=== PATIENT | female | born 1950 | race Caucasian/White ===

== ENCOUNTER 2022-09-21 15:55 | Emergency (ER) | payer MEDICARE, MEDICAID, SELFPAY ==
[2022-09-21 15:59] VITALS: BP 112/71; PULSE 85; RESP 20; TEMP 36.8; O2SAT 97; BMI 37.9
[2022-09-21 16:14] VITALS: BP 114/63; PULSE 72; RESP 16; O2SAT 99
--- NOTE | 2022-09-21 16:25 | XRR_ITS ---
PROCEDURE INFORMATION: Exam: XR Left Knee Exam date and time: 09/21/2022 4:36 PM Age: 72 years old Clinical indication: Injury or trauma; Fall; Blunt trauma; Knee; Left TECHNIQUE: Imaging protocol: Radiologic exam of the Left knee. Views: 3 views. COMPARISON: No relevant prior studies available. FINDINGS: Bones/joints: Medial joint space narrowing with mild degenerative spurring of the medial condyles. No fracture. No visible knee effusion. Soft tissues: Normal. XR/XR knee LT 3V* [id number] IMPRESSION: No acute finding.
--- NOTE | 2022-09-21 16:26 | ED_ITS ---
HPI - Extremity Problem General: Chief complaint: Extremity Injury, Lower Stated complaint: Fall, left knee pain Time Seen by Provider: 09/21/22 16:03 Source: patient and family Mode of arrival: ambulatory Limitations: no limitations History of Present Illness: This lady presents to the emergency department because of a fall injury. She states that she was walking in the home and tripped over a leg of a chair predominantly landing on her left knee. He states that it took a few minutes for her family nurse to help her to a chair and then she attempted to bear weight and it is extremely painful to bear weight on her left knee. She states she did not hit her head, suffer loss of consciousness and has no pain elsewhere. She is very specific that she tripped and did not have syncope, palpitations etc. She states she has a history of fibromyalgia as well as osteoarthritis. MD Complaint: extremity pain Location: left and knee Exacerbating factors: weight bearing Associated symptoms: Reports no associated symptoms; Deny chest pain, fever(s) or rash Review of Systems Const: Denies: fever(s) or chills Eyes: Denies: change in vision Card: Denies: chest pain, palpitations, syncope or pre-syncope Resp: Denies: dyspnea GI: Denies: nausea, vomiting or diarrhea Musc: Reports: extremity pain; Denies: neck pain or back pain Skin/Breast: Denies: rash or pruritus Neuro: Denies: headache(s), numbness in extremities or weakness in extremities Psych: Denies: anxiety or depression Endo: Denies: polyuria or polydipsia Rich/Lymph: Denies: easy bruising or easy bleeding Physical Exam Narrative: EXAM NARRATIVE: Patient's oriented and pleasant and in no acute distress. Const: COMMON NORMALS: no acute distress, patient oriented x3 and alert GENERAL APPEARANCE: cooperative HENMT: COMMON NORMALS: normocephalic, atraumatic, moist oral mucous membranes and oropharynx normal HEAD & SCALP: normocephalic and atraumatic FACE & SINUS: normal facial exam Eye: COMMON NORMALS: Equal, round and reactive pupils present and EOMs intact bilaterally PUPIL: Yes Equal, round and reactive pupils present Neck/C-Spine: CERVICAL SPINE: Yes cervical ROM normal, No Cervical spine tenderness, No step off deformity, No Paracervical muscle tenderness, No Paracervical spasm and No Trapezius muscle tenderness Chest: COMMONS NORMALS: normal inspection of the chest Resp: COMMON NORMALS: normal respiratory effort Cardio: COMMON NORMALS: Peripheral pulses 2+ throughout PERIPHERAL PULSES: Peripheral pulses 2+ throughout : COMMON NORMALS: Yes no CVA tenderness BLADDER/KIDNEY EXAM: Yes no CVA tenderness Back/Pelvis: COMMON NORMALS: no CVA tenderness, thoracic and lumbar spine normal to inspection, no thoracic nor lumbar tenderness, thoraco-lumbar ROM normal and straight leg raise negative bilaterally PELVIS: Yes no pain with anterior-posterior compression and Yes no pain with lateral compression Extremity: COMMON NORMALS: capillary refill normal, no calf tenderness and no pedal edema OTHER: Extremity examination is normal in both upper extremities and right lower extremity. Left lower extremity is remarkable in that she has ecchymosis over the anterior medial left knee. She has tenderness over the same area. She has no deformity. No effusion. Patellar tendon function is intact and she is able to elevate her lower leg to 180 degrees unaided. There is no laxity to varus or valgus stress. There is no ballotable patella. Tib-fib ankle and foot are normal to palpation without any deformity, ecchymosis, tenderness. Normal range of motion. Achilles tendon function is intact. Neurovascular intact distally. Neuro: COMMON NORMALS: patient oriented x3, moves all extremities, no focal motor deficits and no sensory deficits noted SENSORIUM/ORIENTATION: Yes alert Skin: COMMON NORMALS: no rashes or lesions noted GENERAL SKIN EXAM: no rashes or lesions noted and ecchymosis (Left knee) Course Reevaluation(s): Reevaluation #1: Patient was reexamined. No new findings on repeat examination. Discussed current findings, treatment and expected course. Patient has a walker at home. Time: 17:36 Vital Signs: Vital signs: Vital Signs Temperature 98.2 F 09/21/22 15:59 Pulse Rate 72 09/21/22 16:14 Respiratory Rate 16 09/21/22 16:14 Blood Pressure 114/63 09/21/22 16:14 Pulse Oximetry 99 09/21/22 16:14 Oxygen Delivery Me thod 09/21/22 16:14 MDM - Extremity (Nontraumatic) Medical Decision Making Patient with a ground-level fall at home without syncope. She fell striking her left anterior knee on the floor. No head trauma, or other injury. Clinical examination reveals contusion to the left knee but no evidence of joint disruption, or Achilles or or patellar tendon disruption or other injury. Radiographs do not reveal any evidence of fracture in the knee tib-fib region. Consistent with contusion. Discussed increasing weightbearing as pain allows w ith using her walker for assistance. Also advised her to hold her Pradaxa tonight to try to limit any additional bleeding and resume it in the morning. Also advised ice massage and follow-up if symptoms do not improve in 5 to 7 days or worsening in any time. No evidence of other injury this visit. Stable for discharge. Lab Data I reviewed the patient's lab results. Radiology Impressions Knee X-Ray 09/21/22 16:25 IMPRESSION: No acute finding. Tibia/Fibula X-Ray 09/21/22 16:26 IMPRESSION: No acute findings. Discharge Plan Discharge Patient Disposition: Home Clinical Impression: Contusion of knee, left, Fall from ground level Condition: Stable Discharge Orders: Discharge ED (Routine); Ordered 09/21/22 Ordered By: Jose Street Discharge Diet: Usual diet Discharge Activity: Increase activity as tolerated and Use walker/crutches as instructed Patient Instructions: Opioid Safety, Pain Management Activity Restrictions/Additional Instructions: Do not take your Pradaxa tonight but then you may resume your normal medications in the morning. Use ice pack to your left knee for 10 to 15 minutes 3-4 times daily. Keep active as pain allows. Use your walker to aid in stability. If your symptoms do not improve on a regular basis and progressive basis over the next 5 to 7 days or worsen at any time return to this or the nearest emergency department for reevaluation. Coding Level of Care Code ED Staff Forester for Delmis Allen
--- NOTE | 2022-09-21 16:26 | XRR_ITS ---
PROCEDURE INFORMATION: Exam: XR Left Tibia and Fibula Exam date and time: 09/21/2022 4:37 PM Age: 72 years old Clinical indication: Injury or trauma; Fall; Blunt trauma; Lower leg; Left TECHNIQUE: Imaging protocol: Radiologic exam of the Left tibia and fibula. Views: 2 views. COMPARISON: CR XR knee LT 3V* [id number] 09/21/2022 4:36 PM FINDINGS: Bones/joints: The bones are intact and in normal alignment. Small chronic osteocartilaginous body along the medial aspect of the medial femoral condyle. Soft tissues: Normal. XR/XR tibia fibula LT 2V [id number] IMPRESSION: No acute findings.
== END 2022-09-21 18:01 | disposition home or self-care (01) ==
PROVIDERS: Emergency Provider Emergency Medicine
DX: S80.02XA Contusion of left knee, initial encounter (principal); W18.09XA Striking against other object with subsequent fall, initial encounter
CPT/HCPCS: 73562; 73590; 99283

== ENCOUNTER 2024-12-01 11:21 | Observation (INO) | payer MEDICARE, SELFPAY ==
[2024-12-01] VITALS (15 sets, daily range): BP systolic 93–138; BP diastolic 60–111; PULSE 94–145; RESP 17–24; TEMP 36.7; O2SAT 92–95; BMI 41.7
--- NOTE | 2024-12-01 11:26 | XRR_ITS ---
PROCEDURE INFORMATION: Exam: XR Chest Exam date and time: 12/01/2024 12:11 PM Age: 74 years old Clinical indication: Shortness of breath; Patient HX: C/O productive cough x 1 week and SOB. Wheezing. PT states that she has copd/ asthma. PT states that she had a neb tx at 0300 and her inhaler at 0500. Short term relief. PT states that she was unable to walk from her bathroom to the bedroom d/t SOB. Chest soreness. TECHNIQUE: Imaging protocol: Radiologic exam of the chest. Views: 1 view. COMPARISON: No relevant prior studies available. FINDINGS: Tubes, catheters and devices: None. Lungs: Right perihilar and upper lobe interstitial alveolar consolidation opacities. Left perihilar and left lower lobe interstitial and alveolar opacities. The lungs appear otherwise clear. Pleural spaces: No pleural effusion. No pneumothorax. Heart/Mediastinum: Cardiac silhouette appears [id number]-[id number] enlarged. Vasculature: Mild atherosclerotic calcification demonstrated within the aorta. Bones/joints: Mild generalized bony degenerative changes. Bony structures appear otherwise unremarkable. Soft tissues: This study is severely limited by patient's large body habitus. XR/XR chest 1V portable [id number] IMPRESSION: 1. Bilateral pneumonia. Recommend close imaging followup until complete resolution. 2. Egge-ii-eurugazpkc enlarged cardiac silhouette.
--- NOTE | 2024-12-01 12:06 | ECG_ITS ---
[facility] Test Date: 2024-12-01 Pat Name: Claritza De Luna Department: Room: Gender: Female Educational Administrator: : 1950 Requested By: Samuel Parikh Order Number: [id number] Osorio MD: Casey Servin M.D. Measurements Intervals [place] Rate: 111 P: 0 [place]: 0 QRS: 16 QRSD: 90 T: 171 QT: 324 QTc: 441 Interpretive Statements ATRIAL FIBRILLATION WITH RAPID VENTRICULAR RESPONSE VOLTAGE CRITERIA FOR LVH [MEETS CRITERIA IN ONE OF: R(aVL), S(V1), R(V5), R(V5/V6)+S(V1)] POSSIBLE ANTEROSEPTAL MYOCARDIAL INFARCTION , OF INDETERMINATE AGE [30 ms Q WAVE IN V1-V4] ST DEVIATION AND MODERATE T-WAVE ABNORMALITY, CONSIDER LATERAL ISCHEMIA [-0.1+ mV T-WAVE IN I/aVL/V5/V6] No previous ECG available for comparison Electronically Signed On 12-03-2024 23:59:19 ELECTRIC MOTOR REPAIRING SUPERVISOR by Casey Servin M.D. [email or web address]
[2024-12-01] MEDS: ipratropium-albuterol 3 mL Neb INHALATION (12:28)
--- NOTE | 2024-12-01 12:32 | ED_ITS ---
HPI - SOB/Dyspnea 2 General: Chief Complaint: Shortness of Breath/Dyspnea Stated Complaint: SOB,nausua,fever Time Seen by Provider: 12/01/24 12:21 Source: patient Mode of arrival: ambulatory Limitations: no limitations History of Present Illness: HPI Narrative: 74-year-old female who has a history of COPD states that over the last 6 7 days she has been having increasing cough congestion shortness of breath. States she has had some low-grade fevers as well. She denies any worsening improving factors denies any pain denies any vomiting or diarrhea. Associated symptoms: Deny abdominal pain, chest pain, fever(s), nausea or vomiting Related Data Allergies Allergy/AdvReac Type Severity Reaction Status Date / Time dextromethorphan Allergy ALGY-Anaphy Verified 12/01/24 12:03 laxis Penicillins Allergy ALGY-Hives Verified 12/01/24 12:03 Review of Systems 2 Const: Denies: fever(s), chills, body aches or change in appetite ENMT: Denies: throat pain or dental pain Card: Denies: chest pain Resp: Reports: dyspnea, productive cough and wheezing GI: Denies: abdominal pain, nausea, vomiting or diarrhea Musc: Denies: neck pain or back pain Skin/Breast: Denies: rash Neuro: Denies: headache(s) Physical Exam 2 Const: COMMON NORMALS: patient oriented x3 HENMT: COMMON NORMALS: normocephalic and atraumatic HEAD & SCALP: n ormocephalic and atraumatic Neck/C-Spine: COMMON NORMALS: full ROM and supple Chest: COMMONS NORMALS: normal inspection of the chest Resp: COMMON NORMALS: No retractions and No use of accessory muscles EFFORT & INSPECTION: Yes tachypneic, Yes respiratory distress and Yes audible wheezes AUSCULTATION: rales and wheezes Cardio: COMMON NORMALS: No murmurs present (Cardio) RATE: tachycardic R HYTHM: abnormal rhythm irregularly irregular GI: COMMON NORMALS: Normal to inspection, nondistended, normoactive bowel sounds present, Soft to palpation, non-tender and no masses PALPATION: Yes Soft to palpation Extremity: COMMON NORMALS: normal to inspection and full ROM Neuro: COMMON NORMALS: patient oriented x3, moves all extremities and no focal motor deficits Psych: COMMON NORMALS: mental status grossly normal, Normal thought process present and cooperative THOUGHT PROCESS: Normal thought process present Skin: COMMON NORMALS: no rashes or lesions noted and no wounds GENERAL SKIN EXAM: no rashes or lesions noted Course 2 Vital Signs: Vital signs: Vital Signs Temperature 98.0 F 12/01/24 11:58 Pulse Rate 100 12/01/24 12:43 Respiratory Rate 24 H 12/01/24 12:43 Blood Pressure 138/111 12/01/24 12:43 Pulse Oximetry 95 12/01/24 12:43 Oxygen Delivery Me thod Room Air 12/01/24 12:43 MDM - SOB/Dyspnea Medical Decision Making Patient presents here with cough shortness of breath she does have wheezing likely COPD exacerbation also has pneumonia on x-ray. I spoke to the hospitalist will admit at this time. Was given antibiotics steroids and breathing treatment Medical Records I reviewed the patient's medical records. Lab Data I reviewed the patient's lab results. 12/01/24 12:40 12/01/24 12:40 Labs/Radiology: Radiology Impressions Chest X-Ray 12/01/24 11:26 IMPRESSION: 1. Bilateral pneumonia. Recommend close imaging followup until complete resolution. 2. Nhdh-qp-[id number] enlarged cardiac silhouette. Laboratory Results WBC 8.05 10^3/uL (3.29-11.43) 12/01/24 12:40 RBC 4.24 10^6/uL (3.85-5.65) 12/01/24 12:40 Hgb 13.10 g/dL (11.27-16.99) 12/01/24 12:40 Hct 40.1 % (36-47) 12/01/24 12:40 MCV 94.6 fl (85-98) 12/01/24 12:40 MCH 30.9 pg (27-33) 12/01/24 12:40 MCHC 32.7 g/dL (30-55) 12/01/24 12:40 RDW 14.6 % (12.1-15.1) 12/01/24 12:40 Plt Count 262 10^3/cmm (157-399) 12/01/24 12:40 MPV 10.9 fL (7.4-10.4) H 12/01/24 12:40 Neut % (Auto) 80.3 % 12/01/24 12:40 Lymph % (Auto) 12.0 % 12/01/24 12:40 [place] % (Auto) 7.1 % 12/01/24 12:40 Eos % (Auto) 0.0 % 12/01/24 12:40 Baso % (Auto) 0.4 % 12/01/24 12:40 Neut # (Auto) 6.46 10^3/uL (1.8-7.7) 12/01/24 12:40 Lymph # (Auto) 1.0 10^3/uL (0.8-4.8) 12/01/24 12:40 [place] # (Auto) 0.6 10^3/uL (0.2-0.9) 12/01/24 12:40 Eos # (Auto) 0.0 10^3/uL (0.0-0.8) 12/01/24 12:40 Baso # (Auto) 0.0 10^3/uL (0.0-0.1) 12/01/24 12:40 Nucleated RBC % (auto) 0 % 12/01/24 12:40 Nucleated RBCs # 0.0 /100WBC 12/01/24 12:40 Sodium 135 mmol/L (136-145) L 12/01/24 12:40 Potassium 4.2 mmol/L (3.5-5.1) 12/01/24 12:40 Chloride 98 mmol/L (98-107) 12/01/24 12:40 Carbon Dioxide 23 mmol/L (22-29) 12/01/24 12:40 Anion Gap 18.2 (5-19) 12/01/24 12:40 BUN 9 mg/dL (8-23) 12/01/24 12:40 Creatinine 0.9 mg/dL (0.5-0.9) 12/01/24 12:40 GFR Calculation Not Reportable 12/01/24 12:40 Glucose 106 mg/dL (65-115) 12/01/24 12:40 Calculated Osmolality 279 mOsm/kg (285-295) L 12/01/24 12:40 Calcium 9.0 mg/dL (8.5-10.5) 12/01/24 12:40 Total Bilirubin 0.5 mg/dL (0.15-1.2) 12/01/24 12:40 AST 20 U/L (0-32) 12/01/24 12:40 ALT 12 U/L (0-33) 12/01/24 12:40 Alkaline Phosphatase 91 U/L (35-105) 12/01/24 12:40 NT-Pro-B Natriuret Pep 2286 pg/mL (0-125) H 12/01/24 12:40 Total Protein 7.3 g/dL (6.6-8.7) 12/01/24 12:40 Albumin 3.7 g/dL (3.5-5.2) 12/01/24 12:40 Globulin 3.6 g/dL (1.3-4.6) 12/01/24 12:40 Influenza Type A Ag negative (Negative) 12/01/24 12:35 Influenza Type B Ag negative (Negative) 12/01/24 12:35 SARS-CoV-2 Ag (Rapid) Negative (Negative) 12/01/24 12:35 All radiology interpretation(s) finalized by discharge EKG Data EKG 1: I personally reviewed and interpreted this EKG as follows: EKG Interpretation Date: 12/01/24 EKG interpretation time: 12:06 Interpretation: afib with rvr hr [address] elevation qrs 90 qtc 389 Discharge Plan Discharge Patient Disposition: Admitted As Inpatient Clinical Impression: Community acquired pneumonia, Acute exacerbation of chronic obstructive airways disease Condition: Stable Coding Level of Care Code ED Speech Language Pathologist Prn for Delmis Allen
[2024-12-01 12:54] LABS: Basophils % 0.4 %; Hematocrit 40.1 % (36-47); Mean Corpuscular HGB Conc 32.7 g/dL (30-55); Mean Corpuscular Hemoglobin 30.9 pg (27-33); Mean Corpuscular Volume 94.6 fl (85-98); Mean Platelet Volume 10.9 fL (7.4-10.4); Monocytes # 0.6 10^3/uL (0.2-0.9); Monocytes % 7.1 %; Neutrophils # 6.46 10^3/uL (1.8-7.7); Neutrophils % 80.3 %; Nucleated Red Blood Cells % 0 %; Platelet Count 262 10^3/cmm (157-399); Red Blood Count 4.24 10^6/uL (3.85-5.65); Red Cell Distribution Width 14.6 % (12.1-15.1); White Blood Count 8.05 10^3/uL (3.29-11.43)
[2024-12-01 13:04] LABS: Influenza A by IFA negative (Negative); Influenza B by IFA negative (Negative)
[2024-12-01 13:16] LABS: Alanine Aminotransferase 12 U/L (0-33); Albumin Level 3.7 g/dL (3.5-5.2); Alkaline Phosphatase 91 U/L (35-105); Blood Urea Nitrogen 9 mg/dL (8-23); Carbon Dioxide 23 mmol/L (22-29); Chloride 98 mmol/L (98-107); Creatinine Clr Calc Pharmacy 68.6011; Globulin 3.6 g/dL (1.3-4.6); Glucose 106 mg/dL (65-115); NT Pro B Type Natriuretic Pept 2286 pg/mL (0-125); Osmolality Calculated 279 mOsm/kg (285-295); Sodium 135 mmol/L (136-145); Total Bilirubin 0.5 mg/dL (0.15-1.2); Total Protein 7.3 g/dL (6.6-8.7)
[2024-12-01 13:18] LABS: Anion Gap 18.2 (5-19); Potassium 4.2 mmol/L (3.5-5.1)
[2024-12-01 13:19] LABS: Aspartate Amino Transferase 20 U/L (0-32)
[2024-12-01 13:22] LABS: SARS Covid-2 Antigen Negative (Negative)
[2024-12-01] MEDS: cefTRIAXone 1,000 mg SDV 1000 MG IVP (13:51)
[2024-12-01] MEDS: methylPREDNISolone sod succ 125 mg/2 mL INJ IVP (13:53)
[2024-12-01] MEDS: AZITHROMYCIN ADD-Vantage 500 MG in 0.9% NaCl ADD-Vantage 250 ML 250 MG IV (14:11)
--- NOTE | 2024-12-01 15:50 | PC.NURSE ---
pt began resting with eyes closed, o2 sat went to 88% RA, pt placed on 2L NC, o2 sat now 95% on 2L. Dr. Parikh notified and aware.
--- NOTE | 2024-12-01 16:44 | PC.NURSE ---
pt requesting sprite, Dr. Parikh notified and okayed.
--- NOTE | 2024-12-01 17:01 | P.HP_ITS ---
Providers/Chief Complaint 2 Admitting Physician: Arleth Denton MD Chief Complaint: SOB,nausua,fever History of Present Illness Claritza De Luna is a 74 year old female With past medical history of atrial fibrillation on Pradaxa for anticoagulation, asthma COPD, history of pneumonia in the past presents to the ER today because of difficulty in breathing which has been getting worse over last 6 to 7 days getting exacerbated on minimal exertion along with low-grade fever on and off. Denies any sick contacts, runny nose, vomiting or diarrhea. In the ER as per the report she was hypoxic and required up to 2 L. On examination patient is saturating 93% on room air though she seems tachypneic and tachycardic. Review of Systems 2 General: Reports: 10 or more systems reviewed and unremarkable except in HPI and below Const: Denies: fever(s), chills or body aches Eyes: Denies: change in vision, blurry vision or photophobia ENMT: Reports: hoarseness; Denies: throat pain, enlarged tonsils, odynophagia or nasal congestion Card: Denies: chest pain, palpitations, irregular heart rhythm, edema, swelling of feet/ankles, lightheadedness, pre-syncope, dyspnea on exertion or orthopnea Resp: Denies: dyspnea, productive cough, non-productive cough, wheezing, stridor, pain on inspiration, change in phlegm color, hemoptysis or chest congestion GI: Denies: abdominal pain, nausea, vomiting, hematemesis, coffee ground emesis, dysphagia, heartburn, diarrhea, constipation, GI cramping, change in stool character, hematochezia or melena : Denies: flank pain, difficulty voiding, dysuria, urinary frequency, urinary urgency, urinary hesitancy or hematuria Musc: Denies: neck pain, back pain, extremity pain, joint swelling, joint warmth or deformity Neuro: Denies: headache(s), numbness in extremities, weakness in extremities, sensory changes, difficulty walking, frequent falls, dizziness, vertigo, behavioral changes, Slurred speech present or seizure-like activity Psych: Denies: anxiety, depression, suicidal ideation or homicidal ideation Endo: Denies: polyuria, polydipsia, tired all the time, cold intolerance or hot flashes Rich/Lymph: Denies: easy bruising or easy bleeding Medications/Allergies Home Medications Medication Instructions Recorded Confirmed Last Taken Type atorvastatin 80 mg tablet 80 mg PO DAILY 12/01/24 12/01/24 11/30/24 History budesonide-formoterol HFA 160 2 puff inhalation BID 12/01/24 12/01/24 12/01/24 History mcg-4.5 mcg/actuation aerosol inhaler (Symbicort) cholecalciferol (vitamin D3) 25 25 mcg PO DAILY 12/01/24 12/01/24 11/30/24 History mcg (1,000 unit) chewable tablet (Vitamin D3) dabigatran etexilate 150 mg 150 mg PO DAILY 12/01/24 12/01/24 11/30/24 History capsule (Pradaxa) diltiazem HCl 240 mg 240 mg PO DAILY 12/01/24 12/01/24 11/30/24 History capsule,extended release 24 hr furosemide 40 mg tablet 40 mg PO DAILY 12/01/24 12/01/24 11/30/24 History gabapentin 100 mg capsule See Rx Instructions .Route .COMPLEX 12/01/24 12/01/24 11/30/24 History hydrocodone 7.5 mg-acetaminophen 1 tab PO Q4H PRN Pain (Scale Score 12/01/24 12/01/24 11/30/24 History 325 mg tablet 4-6) hyoscyamine sulfate 0.125 mg 0.125 mg sublingual Q6H PRN Spasms 12/01/24 12/01/24 Unknown History sublingual tablet ipratropium 0.5 mg-albuterol 3 mg 3 ml inhalation Q6H 12/01/24 12/01/24 12/01/24 History (2.5 mg base)/3 mL nebulization soln mecobalamin (vitamin B12) 1,000 1,000 mcg PO DAILY 12/01/24 12/01/24 11/30/24 History mcg chewable tablet (B12 Active) montelukast 10 mg tablet 10 mg PO QPM PRN allergies 12/01/24 12/01/24 Unknown History potassium chloride 20 mEq 20 meq PO QAM 12/01/24 12/01/24 Unknown History tablet,extended release sertraline 100 mg tablet 200 mg PO DAILY 12/01/24 12/01/24 11/30/24 History Allergies Allergy/AdvReac Type Severity Reaction Status Date / Time dextromethorphan Allergy ALGY-Anaphy Verified 12/01/24 12:03 laxis Penicillins Allergy ALGY-Hives Verified 12/01/24 12:03 PFSH Acute 2 PFSH: Medical History (Updated 12/01/24 @ 17:03 by Arleth Denton MD) COPD with asthma Atrial fibrillation Social History (Updated 12/01/24 @ 17:04 by Arleth Denton MD) Smoking and tobacco/nicotine status: former use of tobacco/nicotine Alcohol intake: unknown Substance/Drug Use: unknown Caregiver/support person: Yes Lives independently: Yes Household members: family Housing: House Vitals/I&O/Wt Last Vital Signs Temp 98.0 F 12/01/24 11:58 Pulse 111 H 12/01/24 16:30 Resp 24 H 12/01/24 15:30 BP 122/77 12/01/24 16:30 Pulse Ox 92 12/01/24 16:30 O2 Del Method Nasal Cannula 12/01/24 16:30 O2 Flow Rate 2 12/01/24 15:30 Weight last 48 hrs Weight 110.223 kg Physical Exam 2 Narrative: General: No acute distress, AO times 3, tachypneic HEENT: PERRLA, pupils bilaterally equal and reactive, pallors not present Chest: Bilateral bronchial breath sounds all over lung reyes with occasional rhonchi CVS: S1-S2 regular, no murmurs, no tachycardia, no gallops, no rubs Abdomen: Soft, nontender, no organomegaly, bowel sounds present Neuro: No focal deficits, no facial deformity, AO x3, power 5/5 in all limbs Data 12/01/24 12:40 12/01/24 12:40 Micro: Microbiology 12/01/24 13:00 Blood Culture - Preliminary Blood SPECIMEN COLLECTED 12/01/24 12:58 Blood Culture - Preliminary Blood SPECIMEN COLLECTED A&P Assessment and plan (1) Acute exacerbation of chronic obstructive airways disease: (2) Community acquired pneumonia: (3) Atrial fibrillation with RVR: (4) COPD with asthma: (5) Atrial fibrillation: Plan Oxygen supplementation keeping saturation more than 90%. Concern for COPD exacerbation along with community-acquired pneumonia. Cannot rule out mild congestive heart failure given A-fib with RVR. Check respiratory viral panel, sputum culture, procalcitonin, bacterial antigen, MRSA swab, lactic acid. Start on treatment for community-acquired pneumonia with IV ceftriaxone and oral azithromycin. De-escalate as per culture sensitivity. Check CT chest without contrast. Solu-Medrol 40 mg every 6 hour Pulmicort twice daily, ipratropium, Xopenex every 6 hour. IV Lasix 40 mg one-time. Fluid restriction up to 1500 cc Check echocardiogram. A-fib with RVR: At home takes Cardizem 240 mg oral daily. Takes Pradaxa daily. Continue with home dose of Pradaxa. Change Cardizem to 60 mg Q6 hourly. CODE STATUS: Full code Cardiac diet Protonix for PUD prophylaxis Pradaxa will be sufficient for DVT prophylaxis Continue other chronic home medications at all including atorvastatin and gabapentin. Will confirm the dose of Zoloft as it seems extremely high and then start accordingly. Attestations 2 Medical Necessity Statement*: Admission for less than 2 midnights for management of shortness of breath in setting of COPD exacerbation from community-acquired pneumonia. Diagnoses Acute exacerbation of chronic obstructive airways disease J44.1 Community acquired pneumonia J18.9 Atrial fibrillation with RVR I48.91 COPD with asthma J44.89 Atrial fibrillation I48.91
[2024-12-01 17:03] LABS: Lactic Sepsis W/Reflex 3.6 mmol/L (0.5-2.2)
[2024-12-01 17:05] LABS: Reflex Lactate Order REFLEX LACTIC ORDERD
--- NOTE | 2024-12-01 17:08 | CTR_ITS ---
PROCEDURE INFORMATION: Exam: CT Chest Without Contrast; Diagnostic Exam date and time: 12/01/2024 5:24 PM Age: 74 years old Clinical indication: Shortness of breath; Additional info: Respiratory failure, pneumonia, copd TECHNIQUE: Imaging protocol: Diagnostic computed tomography of the chest without contrast. Radiation optimization: All CT scans at this facility use at least one of these dose optimization techniques: automated exposure control; mA and/or kV adjustment per patient size (includes targeted exams where dose is matched to clinical indication); or iterative reconstruction. COMPARISON: CR (CHEST, ) 12/01/2024 12:11 PM RADIATION DOSE METRICS: Total DLP (mGy-cm): 741.35 FINDINGS: Thyroid: Lobulated heterogeneous left thyroid lobe nodule with peripheral and interspersed calcifications measuring 2 cm. Lungs: Consolidations in the posterior right upper and lower lobes with surrounding multifocal ground-glass opacities and tree-in-bud nodularity seen throughout the lungs bilaterally. Additional multifocal bronchial wall thickening. Subcentimeter calcified granuloma in the right lower lobe. Pleural spaces: No significant pleural effusion. Heart: Mitral annular calcifications. Coronary arteries: Mild coronary artery calcifications. Lymph nodes: Calcified right hilar lymph nodes. Likely sequela chronic granulomatous disease. Vasculature: Unremarkable. No aortic aneurysm. Gallbladder and biliary ducts: Status post cholecystectomy. Pancreas: Fatty parenchymal atrophy of the pancreas. Spleen: Scattered calcified granulomas in the spleen. Kidneys: Partially visualized exophytic cyst in the lower pole of the right kidney measuring up to 5.8 cm. Bones/joints: Unremarkable. No acute fracture. Soft tissues: Unremarkable. CT/CT chest wo con [id number] IMPRESSION: 1. Multifocal pneumonia involving the right upper and lower lobes. 2. Scattered tree-in-bud nodularity with patchy ground-glass opacities and bronchial wall thickening suggesting diffuse infectious or inflammatory bronchiolitis. Aspiration bronchiolitis is entirely excluded. 3. 2 cm calcified left thyroid lobe nodule. Recommend interval follow-up nonemergent thyroid ultrasound as clinically indicated. 4. Other findings as described in the body of the report. COMMENTS: 1. Consistent with the [employer] [place] [employer]'s Incidental Findings Committee white paper (J Am Eddie Radiol 2018): Any incidental renal lesion less than 1 cm or classified as too small to characterize, or any incidental cystic renal lesion characterized as simple-appearing, is likely benign. No follow-up imaging is recommended for these lesions per consensus recommendations based on imaging criteria. 2. Consistent with the [employer] [place] [employer]'s Incidental Findings Committee white paper (J Am Eddie Radiol 2015): In patients aged 35 years and older with an incidental thyroid nodule equal to or greater than 1.[address], MRI or extrathyroidal US, further evaluation with dedicated thyroid US is recommended for patients with normal life expectancy and without comorbidities. For smaller nodules without suspicious features, no further evaluation or follow up is recommended.
--- NOTE | 2024-12-01 17:09 | PC.NURSE ---
report called to Prabha on med surg at 1708.
[2024-12-01 17:43] LABS: Iron 26 ug/dL (37-145); Percent Saturation 8.7 % (20-50); Thyroid Stimulating Hormone 1.06 uIU/mL (0.27-4.20); Total Iron Binding Capacity 297 mcg/dl; Unsaturated Iron Binding 271 ug/dL (112-347); Vitamin B12 358 pg/mL (232-1245)
[2024-12-01] MEDS: FUROsemide 10 mg/mL SDV 4mL 40 MG IVP (18:07)
[2024-12-01 18:34] LABS: MRSA PCR OZH (swab) NOT DETECTED (Not Detecte)
[2024-12-01 18:43] LABS: Lactic Acid level (Lactate) 1.5 mmol/L (0.5-2.2)
[2024-12-01 18:55] LABS: Bilirubin Urine Negative (Negative); Blood Urine Negative (Negative); Glucose Urine UA Negative (Normal); Ketones Urine Negative (Negative); Leukocyte Esterase Urine Negative (Negative); Nitrate Urine Negative (Negative); Protein Urine Negative (Negative); Specific Gravity, Urine 1.005 (1.005-1.030); Urine Appearance Clear (CLEAR); Urine Color Yellow (Yellow); Urobilinogen Urine 0.2 mg/dL (Negative); pH Urine 6.5 (5-7)
[2024-12-01 18:59] LABS: Add Urine Microscopic? YES; Bacteria Urine None Seen /hpf; Hyaline Casts Urine 0-4 /lpf; RBC Urine 0-2 /hpf (0-2); Squamous Epithelial Cell Urine 0-5 /hpf (0-5); WBC Urine 0-5 /hpf (0-5)
[2024-12-01 19:11] LABS: Adenovirus Not Detected (NOT DETECT); Chlamydia Pneumoniae Not Detected (NOT DETECT); Coronavirus 229E,HKU1,NL63,OC4 Not Detected (NOT DETECT); Human Metapneumovirus Detected (NOT DETECT); Human Rhinovirus/Enterovirus Not Detected (NOT DETECT); Influenza A Not Detected (NOT DETECT); Influenza A H1 Not Detected (NOT DETECT); Influenza A H1-2009 Not Detected (NOT DETECT); Influenza A H3 Not Detected (NOT DETECT); Influenza B Not Detected (NOT DETECT); Mycoplasma Pneumoniae Not Detected (NOT DETECT); Parainfluenza Virus Type 1 Not Detected (NOT DETECT); Parainfluenza Virus Type 2 Not Detected (NOT DETECT); Parainfluenza Virus Type 3 Not Detected (NOT DETECT); Parainfluenza Virus Type 4 Not Detected (NOT DETECT); Respiratory Syncytial Virus A Not Detected (NOT DETECT); Respiratory Syncytial Virus B Not Detected (NOT DETECT); SARS-COV-2 Not Detected (NOT DETECT)
[2024-12-01] MEDS: dilTIAZem 60 mg Tablet PO ×2 (19:22→23:05)
[2024-12-01] MEDS: methylPREDNISolone sod succ 40 mg/mL INJ IVP (19:22)
--- NOTE | 2024-12-01 20:17 | ECG_ITS ---
[employer] Test Date: 2024-12-01 Pat Name: Claritza De Luna Department: Room: 263 Gender: Female Guide Cruise: : 1950 Requested By: Arleth Denton Order Number: [id number] Osorio MD: Casey Servin M.D. Measurements Intervals Jansen Rate: 131 P: 0 DE: 0 QRS: 19 QRSD: 79 T: 183 QT: 330 QTc: 489 Interpretive Statements ATRIAL FIBRILLATION WITH RAPID VENTRICULAR RESPONSE VOLTAGE CRITERIA FOR LVH [MEETS CRITERIA IN ONE OF: R(aVL), S(V1), R(V5), R(V5/V6)+S(V1)] POSSIBLE SEPTAL MYOCARDIAL INFARCTION , PROBABLY OLD [30 ms Q WAVE IN V1/V2] ST DEVIATION AND MODERATE T-WAVE ABNORMALITY, CONSIDER LATERAL ISCHEMIA [-0.1+ mV T-WAVE IN I/aVL/V5/V6] Compared to ECG 12/01/2024 12:06:14 No significant changes Electronically Signed On 12-03-2024 23:59:23 RIPSAW OPERATOR by Casey Servin M.D. [email or web address]
[2024-12-01] MEDS: dilTIAZem 5 mg/mL SDV 5 mL 10 MG IVP (20:50)
[2024-12-01] MEDS: pantoprazole 40 mg SDV IVP (20:51)
[2024-12-01] MEDS: gabapentin 100 mg Capsule 200 MG PO (20:53)
[2024-12-01] MEDS: ipratropium 0.5 mg/2.5 mL Neb INHALATION (21:54)
[2024-12-01] MEDS: levalbuterol 0.63 mg/3 mL Neb INHALATION (21:54)
[2024-12-01] MEDS: budesonide 0.5 mg/2 mL Neb INHALATION (21:54)
[2024-12-02] VITALS (21 sets, daily range): BP systolic 119–158; BP diastolic 51–86; PULSE 82–153; RESP 17–22; TEMP 36.3–36.8; O2SAT 88–97; BMI 43.0
[2024-12-02] MEDS: methylPREDNISolone sod succ 40 mg/mL INJ IVP ×3 (01:56→16:38)
[2024-12-02] MEDS: ipratropium 0.5 mg/2.5 mL Neb INHALATION ×4 (02:33→20:37)
[2024-12-02] MEDS: levalbuterol 0.63 mg/3 mL Neb INHALATION ×4 (02:33→20:37)
[2024-12-02] MEDS: dilTIAZem 5 mg/mL SDV 5 mL 10 MG IVP ×2 (02:35→17:10)
[2024-12-02] MEDS: dilTIAZem 60 mg Tablet PO ×3 (05:49→16:38)
[2024-12-02 06:28] LABS: Basophils % 0.2 %; Hematocrit 44.8 % (36-47); Lymphocytes # 0.7 10^3/uL (0.8-4.8); Lymphocytes % 11.7 %; Mean Corpuscular HGB Conc 31.3 g/dL (30-55); Mean Corpuscular Hemoglobin 30.8 pg (27-33); Mean Corpuscular Volume 98.5 fl (85-98); Monocytes # 0.1 10^3/uL (0.2-0.9); Neutrophils # 5.08 10^3/uL (1.8-7.7); Neutrophils % 85.8 %; Nucleated Red Blood Cells % 0 %; Platelet Count 209 10^3/cmm (157-399); Red Blood Count 4.55 10^6/uL (3.85-5.65); Red Cell Distribution Width 14.5 % (12.1-15.1); White Blood Count 5.92 10^3/uL (3.29-11.43)
[2024-12-02 06:45] LABS: Alanine Aminotransferase 11 U/L (0-33); Albumin Level 3.8 g/dL (3.5-5.2); Alkaline Phosphatase 85 U/L (35-105); Anion Gap 17.3 (5-19); Aspartate Amino Transferase 17 U/L (0-32); Blood Urea Nitrogen 13 mg/dL (8-23); Calcium 9.3 mg/dL (8.5-10.5); Carbon Dioxide 23 mmol/L (22-29); Chloride 100 mmol/L (98-107); Creatinine Clr Calc Pharmacy 78.5418; Globulin 3.8 g/dL (1.3-4.6); Glucose 153 mg/dL (65-115); Magnesium 1.9 mg/dL (1.7-2.3); Osmolality Calculated 287 mOsm/kg (285-295); Phosphorus 2.8 mg/dL (2.5-4.5); Potassium 3.3 mmol/L (3.5-5.1); Sodium 137 mmol/L (136-145); Total Bilirubin 0.4 mg/dL (0.15-1.2); Total Protein 7.6 g/dL (6.6-8.7)
[2024-12-02 06:49] LABS: Estmated Average Glucose 120; Hemoglobin A1C 5.8 % (4.0-6.0)
[2024-12-02 06:56] LABS: Chol HDL Ratio 2.98 mg/dL (0.0-4.40); Cholesterol 179 mg/dL (0-200); HDL Cholesterol 60 mg/dL (60-100); LDL Cholesterol Calculated 104 mg/dL (50-129); LDL HDL Ratio 1.73 RATIO (0.00-3.22); Triglycerides 73 mg/dL (0-150)
[2024-12-02 07:03] LABS: Procalcitonin 0.07 ng/mL (0-0.5)
[2024-12-02 07:08] LABS: Folate Level 11.2 ng/mL (4.8-37.3)
[2024-12-02] MEDS: azithromycin 250 mg Tablet 500 MG PO (08:41)
[2024-12-02] MEDS: atorvastatin 40 mg Tablet 80 MG PO (08:41)
[2024-12-02] MEDS: gabapentin 100 mg Capsule 200 MG PO ×3 (08:41→21:45)
[2024-12-02] MEDS: budesonide 0.5 mg/2 mL Neb INHALATION ×2 (09:11→20:37)
--- NOTE | 2024-12-02 09:37 | PC.CHAP ---
Pastoral Care Encounter/Spiritual Assessment Type of Contact [] Declined systems administration analyst visit [] Patient/Family/Request visit [] Outpatient visit [] Follow-up visit [] Physician referral [] Code/Alert [x] Routine visit [] Staff referral [] Actively dying [] Patient sleeping [] Family support [] [] Out of room [] Palliative care [] [] Receiving care in room [] Pre-surgical visit [] Trauma [] Long length of stay [] ICU visit [] Other: Relational/Emotional Strength [] Patient feels connected with others/family/visitors/staff [] Distress [] Loneliness/isolation [] Abandonment Spirituality of Patient [x] Person of Mandi [] Attends Sabianism of their Mandi [x] Believes in Prayer [] Reads Bible or Yarsani materials [] There are 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 Interventions [x] Prayer [x] Active listening [] Non-anxious presence [] Spiritual/emotional support [] Crisis/trauma care [] Spiritual counseling [] Bereavement support [] Provided bereavement packet [x] Provided Bible/devotional materials [] Provided toy/stuffed animal, coloring book to patient or family member [] Provided Communion [] Anointing/[place] [] Salvation [x] Completed spiritual assessment [] Other: Impact on Illness or Injury [] Angry [] Fearful [] Anxious [] Often cries [] Exhaustion [] Unable to work [] Unable to attend yazidism [] Unable to walk/stand [] Unable to read [] Unable to drive [] Unable to eat/drink [] Unable to sleep [] Unable to be with family [] Patient intubated [] Other: Summary Time spent with patient 5 min
--- NOTE | 2024-12-02 13:19 | P.PN_ITS ---
Subjective 2 Subjective: Seen this morning. Patient is requiring [address] chest consistent with pneumonia. Patient is also positive for human metapneumovirus. She is asking if she could go home today however is willing to stay if needed. Vitals/I&O/Wt Last Vital Signs Temp 97.5 F L 12/02/24 11:41 Pulse 108 H 12/02/24 11:41 Resp 19 H 12/02/24 11:41 BP 135/70 12/02/24 11:41 Pulse Ox 96 12/02/24 11:41 O2 Del Method Nasal Cannula 12/02/24 11:41 O2 Flow Rate 2 12/02/24 09:11 12/01/24 12/02/24 12/02/24 22:59 06:59 14:59 Intake Total 250 / 250 720 / 720 Output Total 350 / 350 275 / 625 Balance -100 / -100 -275 / -375 720 / 720 Weight last 48 hrs Weight 113.625 kg Weight 113.625 kg Weight 110.223 kg Weight 110.223 kg Physical Exam 2 Narrative: General: No acute distress, AO times 3, no conversational dyspnea, resting comfortably in bed for 4 L nasal cannula. HEENT: PERRLA, pupils bilaterally equal and reactive, pallors not present Chest: Clear to auscultation bilaterally with mild wheezing and right lower lobe area. CVS: S1-S2 regular, no murmurs, no tachycardia, no gallops, no rubs Abdomen: Soft, nontender, no organomegaly, bowel sounds present Neuro: Nonfocal. Data 12/02/24 06:09 12/02/24 06:09 Micro: Microbiology 12/01/24 13:00 Blood Culture - Preliminary Blood NEGATIVE TO DATE 12/01/24 12:58 Blood Culture - Preliminary Blood NEGATIVE TO DATE 12/01/24 13:46 Bacterial Antigens - Final Urine Kidney A&P Assessment and plan (1) Acute exacerbation of chronic obstructive airways disease: (2) Community acquired pneumonia: (3) Atrial fibrillation with RVR: (4) COPD with asthma: (5) Atrial fibrillation: Plan Oxygen supplementation keeping saturation more than 90%. Concern for COPD exacerbation along with community-acquired pneumonia. Cannot rule out mild congestive heart failure given A-fib with RVR. Check respiratory viral panel, sputum culture, procalcitonin, bacterial antigen, MRSA swab, lactic acid. Start on treatment for community-acquired pneumonia with IV ceftriaxone and oral azithromycin. De-escalate as per culture sensitivity. Check CT chest without contrast. Solu-Medrol 40 mg every 6 hour Pulmicort twice daily, ipratropium, Xopenex every 6 hour. IV Lasix 40 mg one-time. Fluid restriction up to 1500 cc Check echocardiogram. A-fib with RVR: At home takes Cardizem 240 mg oral daily. Takes Pradaxa daily. Continue with home dose of Pradaxa. Change Cardizem to 60 mg Q6 hourly. CODE STATUS: Full code Cardiac diet Protonix for PUD prophylaxis Pradaxa will be sufficient for DVT prophylaxis Continue other chronic home medications at all including atorvastatin and gabapentin. Will confirm the dose of Zoloft as it seems extremely high and then start accordingly. 12/02/2024 -Potassium 3.3. Will order potassium oral 40 x 1 ? Patient did require 2 doses of IV diltiazem overnight. ? Continue diltiazem 60 every 6 ? Patient appears to be euvolemic. No need of further Lasix at this time. ? Echo is pending ? Continue Pradaxa ? Respiratory viral panel positive for human metapneumovirus. Right upper and middle lobe pneumonia evident on chest CT. Continue IV ceftriaxone azithromycin ? Switch Solu-Medrol to 40 every 12 hours ? Continue Xopenex ? Discontinue inhaled budesonide as there is no benefit with IV and inhaled steroids at the same time. ? Home oxygen evaluation at discharge. Plan to discharge home in next 24 to 48 hours pending clinical improvement. ? Daughter Leticia was updated over the phone with above plan. Attestations 2 Medical Necessity Statement*: Admission for less than 2 midnights for management of shortness of breath in setting of COPD exacerbation from community-acquired pneumonia. Diagnoses Acute exacerbation of chronic obstructive airways disease J44.1 Community acquired pneumonia J18.9 Atrial fibrillation with RVR I48.91 COPD with asthma J44.89 Atrial fibrillation I48.91
[2024-12-02] MEDS: cefTRIAXone 1,000 mg SDV 1000 MG IVP (14:28)
[2024-12-02] MEDS: potassium chloride ER 20 mEq Tablet 40 MEQ PO (14:44)
--- NOTE | 2024-12-02 17:01 | PC.NURSE ---
Pt has HR of 153. BP 158/75. Lisa advised. New order received for Iv Cardizem
--- NOTE | 2024-12-02 17:08 | USCV_ITS ---
Claritza De Luna Age: 74 Gender: F : 1950 Exam Date: 12/02/2024 12:44 Ordering Phys: Barak Benz MD Technologist: Exam Location: [facility] [place] Indication: chest pain BP: 134 / 73 HR: 122 Rhythm: Sinus Technical Quality: Adequate MEASUREMENTS (Male / Female) Normal Values 2D ECHO LV Diastolic Diameter PLAX 4.4 cm 4.2 - 5.9 / 3.9 - 5.3 cm IVS Diastolic Thickness 1.5 cm 0.6 - 1.0 / 0.6 - 0.9 cm IVS Systolic Thickness 1.9 cm LVPW Diastolic Thickness 1.3 cm 0.6 - 1.0 / 0.6 - 0.9 cm LVPW Systolic Thickness 1.7 cm LVOT Diameter 2.1 cm LV Ejection Fraction 2D Teich 60.4 % LV Ejection Fraction MOD 4C 47.6 % LV Ejection Fraction MOD 2C 46.6 % LV Ejection Fraction 2C AL 47.0 % LA Diameter 3.9 cm RA Systolic Volume 4C AL 59.3 ml RA Systolic Volume 4C MOD 58.1 ml Aorta at Sinotubular Diameter 2.3 cm M-MODE LA Ao Ratio MM 1.4 AV Cusp Separation MM 2.0 cm DOPPLER AV Peak Velocity 186.3 cm/s LVOT Peak Velocity 102.0 cm/s AV Area Cont Eq vti 2.6 cm squared AV Area Cont Eq pk 1.9 cm squared MV Peak Velocity 113.0 cm/s MV Area PHT 4.1 cm squared Mitral E to A Ratio 3.2 TV Peak Velocity 218.0 cm/s TR Peak Velocity 242.0 cm/s TR Peak Gradient 23.4 mmHg TV Peak E Velocity 72.0 cm/s FINDINGS Left Ventricle Normal left ventricular size and systolic function, EF around 55%. Mild concentric left trickle hypertrophy. Right Ventricle Normal right ventricular size and systolic function. Right Atrium Mildly dilated right atrium Left Atrium Moderately increased left atrial size. Mitral Valve Moderate mitral valve regurgitation. Thickened mitral valve. Aortic Valve Thickened aortic valve. Tricuspid Valve No tricuspid valve stenosis. Pulmonic Valve Pulmonic valve not well visualized. Pericardium Normal pericardium without effusion. Aorta Normal ascending aorta dimension. IVC The inferior vena cava appears normal. CONCLUSIONS Normal left ventricular size and systolic function, EF around 55%. Mild concentric left trickle hypertrophy. Moderately increased left atrial size. Mildly dilated right atrium. Thickened aortic and mitral valves. There is no pericardial effusion. There are no intracardiac masses. No similar previous studies are available for comparison Dr Casey Servin MD [facility] (Electronically Signed) Final Date: 02 December 2024 14:49 S
[2024-12-02] MEDS: pantoprazole 40 mg SDV IVP (21:45)
[2024-12-03] VITALS (7 sets, daily range): BP systolic 106–135; BP diastolic 63–85; PULSE 78–100; RESP 16–18; TEMP 36.4; O2SAT 95–98; BMI 43.4
[2024-12-03] MEDS: HYDROcodone-acetaminophen 7.5-325 mg Tablet 1 TAB PO ×2 (00:27→07:39)
[2024-12-03] MEDS: dilTIAZem 60 mg Tablet PO ×3 (00:28→12:09)
[2024-12-03] MEDS: levalbuterol 0.63 mg/3 mL Neb INHALATION (03:02)
[2024-12-03] MEDS: ipratropium 0.5 mg/2.5 mL Neb INHALATION (03:02)
[2024-12-03 06:14] LABS: Basophils % 0.1 %; Hematocrit 40.6 % (36-47); Lymphocytes # 1.1 10^3/uL (0.8-4.8); Lymphocytes % 7.3 %; Mean Corpuscular HGB Conc 33.3 g/dL (30-55); Mean Corpuscular Hemoglobin 30.8 pg (27-33); Mean Corpuscular Volume 92.7 fl (85-98); Mean Platelet Volume 10.2 fL (7.4-10.4); Monocytes # 0.6 10^3/uL (0.2-0.9); Monocytes % 4.3 %; Neutrophils # 12.92 10^3/uL (1.8-7.7); Neutrophils % 87.9 %; Nucleated Red Blood Cells % 0 %; Platelet Count 249 10^3/cmm (157-399); Red Blood Count 4.38 10^6/uL (3.85-5.65); Red Cell Distribution Width 14.4 % (12.1-15.1); White Blood Count 14.69 10^3/uL (3.29-11.43)
[2024-12-03 06:37] LABS: Anion Gap 14.7 (5-19); Blood Urea Nitrogen 22 mg/dL (8-23); Calcium 9.9 mg/dL (8.5-10.5); Carbon Dioxide 25 mmol/L (22-29); Chloride 101 mmol/L (98-107); Creatinine Clr Calc Pharmacy 63.1831; Glucose 153 mg/dL (65-115); Magnesium 2.2 mg/dL (1.7-2.3); Osmolality Calculated 290 mOsm/kg (285-295); Potassium 3.7 mmol/L (3.5-5.1); Sodium 137 mmol/L (136-145)
[2024-12-03] MEDS: methylPREDNISolone sod succ 40 mg/mL INJ IVP (07:39)
[2024-12-03] MEDS: atorvastatin 40 mg Tablet 80 MG PO (08:12)
[2024-12-03] MEDS: gabapentin 100 mg Capsule 200 MG PO (08:12)
[2024-12-03] MEDS: azithromycin 250 mg Tablet 500 MG PO (08:15)
--- NOTE | 2024-12-03 11:23 | P.DS_ITS ---
Discharge Providers Date of Admission: 12/01/24 18:38 Date of Discharge: December 03, 2024 Attending Provider at Admission: Arleth Denton MD Attending Provider at Discharge: Katy Gonzalez MD Diagnoses at Discharge Discharge Diagnosis (1) Acute exacerbation of chronic obstructive airways disease: Status: Acute (2) Community acquired pneumonia: Status: Acute (3) Atrial fibrillation with RVR: Status: Resolved (4) COPD with asthma: Status: Acute (5) Atrial fibrillation: Status: Acute Reason for Visit Reason for Visit: SOB,nausua,fever Hospital Course Hospital Course Patient presented to the hospital with asthma exacerbation she was found to be positive for human metapneumovirus and also had multilobar pneumonia. Requiring 2 to 3 L nasal cannula. She was treated with steroids. During hospitalization she started to improve however still required oxygen. She was sent home with oral steroids, oxygen, cefdinir azithromycin. Patient's daughter at bedside. During hospitalization she did have a few bouts of A-fib with RVR on ambulation. She was given Cardizem pushes. However it was also noted that when she sat do wn and rested heart rate did improve. She was also using her albuterol inhaler quite frequently to which she was educated to not use it more than every 4 hours and if she is needing it much more frequently then she needs to return to the hospital. At time of discharge metoprolol succinate 12.5 daily was added to her regimen. She was asked to follow-up with primary care doctor and return to the hospital in case of any worsening. Echocardiogram was obtained which showed similar results as before and no acute changes. She is to continue her home Lasix at discharge. Physical Exam Narrative: General: No acute distress, AO times 3, no conversational dyspnea, resting comfortably in bed for 4 L nasal cannula. HEENT: PERRLA, pupils bilaterally equal and reactive, pallors not present Chest: Clear to auscultation bilaterally with mild wheezing and right lower lobe area. CVS: S1-S2 regular, no murmurs, no tachycardia, no gallops, no rubs Abdomen: Soft, nontender, no organomegaly, bowel sounds present Neuro: Nonfocal. Discharge Data Studies Completed and Pending Completed Studies During Hospitalization Category Date Time Status CT chest wo con [id number] Routine Cat Scan 12/01/24 17:08 Completed XR chest 1V portable [id number] Stat Exams 12/01/24 11:26 Completed CV. echo complete* [id number] Routine Ultrasound 12/02/24 17:08 Completed Pending at discharge Category Date Time Status Blood Culture Stat Lab 12/01/24 13:00 Results Sputum Culture and Gram Stain Stat Lab 12/01/24 16:34 Uncollected Radiology Impressions Chest X-Ray 12/01/24 11:26 IMPRESSION: 1. Bilateral pneumonia. Recommend close imaging followup until complete resolution. 2. Zgxj-[id number]-bsaciljgzh enlarged cardiac silhouette. Chest CT 12/01/24 17:08 IMPRESSION: 1. Multifocal pneumonia involving the right upper and lower lobes. 2. Scattered tree-in-bud nodularity with patchy ground-glass opacities and bronchial wall thickening suggesting diffuse infectious or inflammatory bronchiolitis. Aspiration bronchiolitis is entirely excluded. 3. 2 cm calcified left thyroid lobe nodule. Recommend interval follow-up nonemergent thyroid ultrasound as clinically indicated. 4. Other findings as described in the body of the report. COMMENTS: 1. Consistent with the [employer]'s Incidental Findings Committee white paper (J Am Eddie Radiol 2018): Any incidental renal lesion less than 1 cm or classified as too small to characterize, or any incidental cystic renal lesion characterized as simple-appearing, is likely benign. No follow-up imaging is recommended for these lesions per consensus recommendations based on imaging criteria. 2. Consistent with the [employer]'s Incidental Findings Committee white paper (J Am Eddie Radiol 2015): In patients aged 35 years and older with an incidental thyroid nodule equal to or greater than 1.[address], MRI or extrathyroidal US, further evaluation with dedicated thyroid US is recommended for patients with normal life expectancy and without comorbidities. For smaller nodules without suspicious features, no further evaluation or follow up is recommended. Laboratory Results WBC 14.69 10^3/uL (3.29-11.43) H 12/03/24 05:45 RBC 4.38 10^6/uL (3.85-5.65) 12/03/24 05:45 Hgb 13.50 g/dL (11.27-16.99) 12/03/24 05:45 Hct 40.6 % (36-47) 12/03/24 05:45 MCV 92.7 fl (85-98) D 12/03/24 05:45 MCH 30.8 pg (27-33) 12/03/24 05:45 MCHC 33.3 g/dL (30-55) D 12/03/24 05:45 RDW 14.4 % (12.1-15.1) 12/03/24 05:45 Plt Count 249 10^3/cmm (157-399) 12/03/24 05:45 MPV 10.2 fL (7.4-10.4) 12/03/24 05:45 Neut % (Auto) 87.9 % 12/03/24 05:45 Lymph % (Auto) 7.3 % 12/03/24 05:45 [place] % (Auto) 4.3 % 12/03/24 05:45 Eos % (Auto) 0.0 % 12/03/24 05:45 Baso % (Auto) 0.1 % 12/03/24 05:45 Neut # (Auto) 12.92 10^3/uL (1.8-7.7) H 12/03/24 05:45 Lymph # (Auto) 1.1 10^3/uL (0.8-4.8) 12/03/24 05:45 [place] # (Auto) 0.6 10^3/uL (0.2-0.9) 12/03/24 05:45 Eos # (Auto) 0.0 10^3/uL (0.0-0.8) 12/03/24 05:45 Baso # (Auto) 0.0 10^3/uL (0.0-0.1) 12/03/24 05:45 Nucleated RBC % (auto) 0 % 12/03/24 05:45 Nucleated RBCs # 0.0 /100WBC 12/03/24 05:45 Sodium 137 mmol/L (136-145) 12/03/24 05:45 Potassium 3.7 mmol/L (3.5-5.1) 12/03/24 05:45 Chloride 101 mmol/L (98-107) 12/03/24 05:45 Carbon Dioxide 25 mmol/L (22-29) 12/03/24 05:45 Anion Gap 14.7 (5-19) 12/03/24 05:45 BUN 22 mg/dL (8-23) 12/03/24 05:45 Creatinine 1.0 mg/dL (0.5-0.9) H 12/03/24 05:45 GFR Calculation Not Reportable 12/03/24 05:45 Glucose 153 mg/dL (65-115) H 12/03/24 05:45 Estimat Average Glucose 120 12/02/24 06:09 Hemoglobin A1c 5.8 % (4.0-6.0) 12/02/24 06:09 Calculated Osmolality 290 mOsm/kg (285-295) 12/03/24 05:45 Lactic Acid 3.6 mmol/L (0.5-2.2) H 12/01/24 13:46 Lactic Acid (Sepsis) 1.5 mmol/L (0.5-2.2) 12/01/24 18:03 Calcium 9.9 mg/dL (8.5-10.5) 12/03/24 05:45 Phosphorus 2.8 mg/dL (2.5-4.5) 12/02/24 06:09 Magnesium 2.2 mg/dL (1.7-2.3) 12/03/24 05:45 Iron 26 ug/dL (37-145) L 12/01/24 13:46 TIBC 297 mcg/dl 12/01/24 13:46 % Saturation 8.7 % (20-50) L 12/01/24 13:46 Unsat Iron Binding 271 ug/dL (112-347) 12/01/24 13:46 Total Bilirubin 0.4 mg/dL (0.15-1.2) 12/02/24 06:09 AST 17 U/L (0-32) 12/02/24 06:09 ALT 11 U/L (0-33) 12/02/24 06:09 Alkaline Phosphatase 85 U/L (35-105) 12/02/24 06:09 NT-Pro-B Natriuret Pep 2286 pg/mL (0-125) H 12/01/24 12:40 Total Protein 7.6 g/dL (6.6-8.7) 12/02/24 06:09 Albumin 3.8 g/dL (3.5-5.2) 12/02/24 06:09 Globulin 3.8 g/dL (1.3-4.6) 12/02/24 06:09 Triglycerides 73 mg/dL (0-150) 12/02/24 06:09 Cholesterol 179 mg/dL (0-200) 12/02/24 06:09 LDL Cholesterol, Calc 104 mg/dL (50-129) 12/02/24 06:09 HDL Cholesterol 60 mg/dL (60-100) 12/02/24 06:09 LDL/HDL Ratio 1.73 RATIO (0.00-3.22) 12/02/24 06:09 Cholesterol/HDL Ratio 2.98 mg/dL (0.0-4.40) 12/02/24 06:09 Vitamin B12 358 pg/mL (232-1245) 12/01/24 13:46 Folate 11.2 ng/mL (4.8-37.3) 12/02/24 06:09 Procalcitonin 0.07 ng/mL (0-0.5) 12/02/24 06:09 TSH 1.06 uIU/mL (0.27-4.20) 12/01/24 13:46 Urine Color Yellow (Yellow) 12/01/24 18:42 Urine Appearance Clear (CLEAR) 12/01/24 18:42 Urine pH 6.5 (5-7) 12/01/24 18:42 Ur Specific [place] 1.005 (1.005-1.030) 12/01/24 18:42 Urine Protein Negative (Negative) 12/01/24 18:42 Urine Glucose (UA) Negative (Normal) 12/01/24 18:42 Urine Ketones Negative (Negative) 12/01/24 18:42 Urine Blood Negative (Negative) 12/01/24 18:42 Urine Nitrate Negative (Negative) 12/01/24 18:42 Urine Bilirubin Negative (Negative) 12/01/24 18:42 Urine Urobilinogen 0.2 mg/dL (Negative) 12/01/24 18:42 Ur Leukocyte Esterase Negative (Negative) 12/01/24 18:42 Urine RBC 0-2 /hpf (0-2) 12/01/24 18:42 Urine WBC 0-5 /hpf (0-5) 12/01/24 18:42 Ur Squamous Epith Cells 0-5 /hpf (0-5) 12/01/24 18:42 Amorphous Sediment Not Reportable 12/01/24 18:42 Urine Bacteria None seen /hpf (NONE) 12/01/24 18:42 Hyaline Casts 0-4 /lpf H 12/01/24 18:42 Nasal MRSA (PCR) Not detected (Not Detecte) 12/01/24 17:14 Adenovirus (PCR) Not detected (NOT DETECT) 12/01/24 17:14 C. pneumoniae DNA (PCR) Not detected (NOT DETECT) 12/01/24 17:14 Coronavirus 229E (PCR) Not detected (NOT DETECT) 12/01/24 17:14 Human Metapneumovir PCR Detected (NOT DETECT) A 12/01/24 17:14 Influenza A (H1) PCR Not detected (NOT DETECT) 12/01/24 17:14 Influ A (H1/09) PCR Not detected (NOT DETECT) 12/01/24 17:14 Influenza A (H3) PCR Not detected (NOT DETECT) 12/01/24 17:14 Influenza Type A Ag negative (Negative) 12/01/24 12:35 Influenza Type A (PCR) Not detected (NOT DETECT) 12/01/24 17:14 Influenza Type B Ag negative (Negative) 12/01/24 12:35 Influenza Type B (PCR) Not detected (NOT DETECT) 12/01/24 17:14 M. pneumoniae (PCR) Not detected (NOT DETECT) 12/01/24 17:14 Parainfluenza 1 (PCR) Not detected (NOT DETECT) 12/01/24 17:14 Parainfluenza 2 (PCR) Not detected (NOT DETECT) 12/01/24 17:14 Parainfluenza 3 (PCR) Not detected (NOT DETECT) 12/01/24 17:14 Parainfluenza 4 (PCR) Not detected (NOT DETECT) 12/01/24 17:14 RSV Type A (PCR) Not detected (NOT DETECT) 12/01/24 17:14 RSV Type B (PCR) Not detected (NOT DETECT) 12/01/24 17:14 Entero/Rhino (PCR) Not detected (NOT DETECT) 12/01/24 17:14 SARS-CoV-2 (PCR) Not detected (NOT DETECT) 12/01/24 17:14 SARS-CoV-2 Ag (Rapid) Negative (Negative) 12/01/24 12:35 Vitals Last Vital Signs Temp 97.6 F 12/03/24 08:00 Pulse 96 12/03/24 08:00 Resp 18 12/03/24 08:00 BP 106/63 12/03/24 08:00 Pulse Ox 98 12/03/24 08:00 O2 Del Method Nasal Cannula 12/03/24 08:00 O2 Flow Rate 3 12/03/24 03:18 Discharge Plan Discharge Patient Disposition: Home Condition: Stable Prescriptions: New azithromycin 250 mg Tablet 500 mg PO DAILY Qty: 8 0RF cefdinir 300 mg capsule 300 mg PO BID 6 Days Qty: 12 0RF prednisone 10 mg tablet See Rx Instructions .ROUTE .COMPLEX 5 Days Qty: 5 0RF Rx Instructions: 40 mg daily x 5 days metoprolol succinate [Toprol XL] 25 mg tablet extended release 24 hr 12.5 mg PO DAILY Qty: 30 0RF Continued furosemide 40 mg tablet 40 mg PO DAILY hydrocodone-acetaminophen 7.5-325 mg tablet 1 tab PO Q4H PRN (Reason: Pain (Scale Score 4-6)) budesonide-formoterol [Symbicort] 160-4.5 mcg/actuation HFA aerosol inhaler 2 puff INHALATION BID atorvastatin 80 mg tablet 80 mg PO DAILY ipratropium-albuterol 0.5 mg-3 mg(2.5 mg base)/3 mL solution for nebulization 3 ml INHALATION Q6H diltiazem HCl 240 mg capsule,extended release 24hr 240 mg PO DAILY sertraline 100 mg tablet 200 mg PO DAILY hyoscyamine sulfate 0.125 mg tablet, sublingual 0.125 mg sublingual Q6H PRN (Reason: Spasms) montelukast 10 mg tablet 10 mg PO QPM PRN (Reason: allergies) gabapentin 100 mg capsule See Rx Instructions .ROUTE .COMPLEX Rx Instructions: TAKE 1 TO 3 CAPSULES BY MOUTH THREE TIMES DAILY dabigatran etexilate [Pradaxa] 150 mg capsule 150 mg PO DAILY potassium chloride 20 mEq tablet extended release 20 meq PO QAM cholecalciferol (vitamin D3) [Vitamin D3] 25 mcg (1,000 unit) Tablet,Chewable 25 mcg PO DAILY mecobalamin (vitamin B12) [B12 Active] 1,000 mcg Tablet,Chewable 1,000 mcg PO DAILY Discharge Orders: Discharge Order (Routine); Ordered 12/03/24 Ordered By: Katy Gonzalez Other Ambulatory Orders: DME: Oxygen (Order) Location: None Selected Ordered By: Katy Gonzalez Referrals: Dr Benites [Other] - 12/05/24 1:00 pm (Appointment will be with KATERIN Vega) Discharge Diet: Cardiac Discharge Activity: Resume usual activity and Oxygen as instructed Patient Instructions: Metoprolol (By mouth), Prednisone (By mouth), Azithromycin (By mouth), Cefdinir (By mouth), COPD Stoplight, Opioid Safety Discharge Attestations Time Spent in Discharge Care*: less than 30 min Quality Metrics Clinical Quality Measures [ No reported AMI, CVA or VTE this stay] Coding Level of Care Code Acute Code for Chg Fwd Diagnoses Acute exacerbation of chronic obstructive airways disease J44.1 Community acquired pneumonia J18.9 Atrial fibrillation with RVR I48.91 COPD with asthma J44.89 Atrial fibrillation I48.91
== END 2024-12-03 13:54 | disposition home or self-care (01) ==
LOC: ER 14:19 → ER IP 16:34 → MEDSURG 17:30
PROVIDERS: Student in an Organized Health Care Education/Training Program; Admitting Provider Student in an Organized Health Care Education/Training Program; Emergency Provider Emergency Medicine; Visit Provider Internal Medicine
DX: J44.1 Chronic obstructive pulmonary disease with (acute) exacerbation (principal); J18.9 Pneumonia, unspecified organism; I48.91 Unspecified atrial fibrillation; J44.89 Other specified chronic obstructive pulmonary disease; Z87.891 Personal history of nicotine dependence
CPT/HCPCS: 36415; 71045; 71250; 80048; 80053; 80061; 81001; 82607; 82746; 83036; 83540; 83550; 83605; 83735; 83880; 84100; 84145; 84443; 85025; 86403; 87040; 87426; 87486; 87581; 87633; 87804; 93005; 93306; 94640; 94760; 96365; 96375; 96376; 99285; G0378; J0456; J0696; J1940; J2470; J2919; J3490; J7050; J7614; J7626; J7644; Q0144

== ENCOUNTER 2025-08-24 18:28 | Emergency (ER) | payer MEDICARE, MEDICAID, SELFPAY ==
[2025-08-24 18:30] VITALS: BP 145/67; PULSE 66; RESP 81; TEMP 36.8; O2SAT 81; BMI 39.4
--- OUTSIDE RECORDS SUMMARY | 2025-08-24 18:38 | XMS_ITS | Encounter Summary ---
Author Organization [facility] Address [address] [place] [address] Care Team Providers Care Orchid Superintendent Name Role Phone Korey Benites MD Primary Care Provider [phone] Reason for Visit * Reason Onset Date Comments nurse 09/06/2023 Encounter Details Date Type Department Care Team (Late st Contact Info) Description 09/06/2023 Telephone [facility] [address] [facility] [address] [place] [phone] Octavio Tabares MD [address] [facility] [facility] [address] [place] [phone] nurse Social History Tobacco Use Types Packs/Day Years Used Date Smoking Tobacco: Never Passive Smoke Exposure: Never Smokeless Tobacco: Never Alcohol Use Standard Drinks/Week Comments No 0 (1 standard drink = 0.6 oz pur e alcohol) Financial Resource Strain Answer Date R ecorded How hard is it for you to pa y for the very basics like food, housing, medical care, and heating? Somewhat hard 11/22/2022 Food Insecurity Answer Date Recorded In the past 12 months, have you worried that your food would run out before you had money to buy more? Never true 11/22/2022 In the past 12 months, did y ou run out of food and didn't have money to buy more? Never true 11/22/2022 Transportation Needs Answer Date Record ed In the past 12 months, has l ack of transportation kept you from medical appointments or from getting medications? No 11/22/2022 Lack of Transportation (Non-Medical) Not on file 11/22/2022 Comments No Sex and Gender Information Value Date Recorded Sex Assigned at Not on file Legal Sex Female 1:54 PM COAT TAILOR Gender Identity Not on file Sexual Orientation Not on file documented as of this encounter Miscellaneous Notes * Telephone Encounter - Zulema Chapman - 09/06/2023 3:[address] Tabares Call back # [phone] Multiple recipients? No Pt went to Urgent Care yesterday and was told she had CHF . She got med to get fluid off and she also has pneumonia . Daughter is concerned she needs to see the heart . After she finishes her medin a few days she was told to go to Dr Benites . She would like to see someone here in the office the same day she sees Dr Benites . documented in this encounter Plan of Treatment Upcoming Encounters Date Type Department Care Team (Late st Contact Info) Description 09/15/2025 11:45 AM CDT Office Visit [facility] [place] [place] [phone] Korey Benites MD [address] [facility] [address] [place] [phone] 10/30/2025 12:30 PM COAT TAILOR Office Visit [facility] [address] [place] [address] Silver Benites MD [address] [place] [address] 12/29/2025 11:00 AM COAT TAILOR Office Visit [facility] [address] [facility] [address] [place] [address] Octavio Tabares MD [address] [facility] [address] [place] [phone] Azalia Ferris NP [address] [facility] [facility] [address] [place] [phone] 01/20/2026 2:15 PM COAT TAILOR Office Visit [facility] [address] [facility] [address] [place] [phone] Paramjit Bravo MD [address] [facility] [facility] [address] [place] [address] 04/28/2026 1:30 PM CDT Office Visit [facility] [address] [place] [phone] Rachel Sal MD [address] [place] [phone] 05/11/2027 3:10 PM CDT Office Visit [facility] [place] [address] [facility] [address] [place] [phone] Huy Mendiola NP [address] [place] [address] documented as of this encounter Visit Diagnoses Not on filedocumented in this encounter Care Teams Orchid Superintendent Relationship Specialty Start Date End Date Korey Benites MD [address] [place] [phone] PCP - General 04/28/04 documented as of this encounter
--- OUTSIDE RECORDS SUMMARY | 2025-08-24 18:38 | XMS_ITS | Encounter Summary ---
Author Organization [facility] Address [address] [place] [address] Care Team Providers Care Aquaculture Worker Name Role Phone Korey Benites MD Primary Care Provider [phone]- [phone] Encounter Details Date Type Department Care Team (Latest Contact Info) Description 04/06/2006 Outpatient Historical [facility] [place] [facility] [address] [place] [address] Huy Webb MD NO ADDRESS ON FILE Sebaceous Cyst (Primary Dx) Social History Tobacco Use Types Packs/Day Years Used Date Smoking Tobacco: Never Assessed Comments Unknown Sex and Gender Information Value Date Recorded Sex Assigned at Not on file 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
--- OUTSIDE RECORDS SUMMARY | 2025-08-24 18:38 | XMS_ITS | Encounter Summary ---
Author Organization [facility] Address [address] [place] [address] Care Team Providers Care Crop Duster Name Role Phone Korey Benites MD Primary Care Provider [phone] Encounter Details Date Type Department Care Team (Late st Contact Info) Description 09/05/2023 Lab Requisition [facility] General Laboratory Services [address] 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 Gender Identity Not on file Sexual Orientation Not on file documented as of this encounter Plan of Treatment Upcoming Encounters Date Type Department Care Team (Late st Contact Info) Description 09/15/2025 11:45 AM CDT Office Visit [facility] [place] [place] [address] Korey Benites MD [address] [place] [address] 10/30/2025 12:30 PM COLD ROLLING SUPERVISOR Office Visit [facility] Family [facility] [place] [address] [place] [address] Silver Benites MD [address] [place] [address] 12/29/2025 11:00 AM COLD ROLLING SUPERVISOR Office Visit [facility] [address] [place] [phone] Octavio Tabares MD [address] [place] [phone] Azalia Ferris, KATERIN [address] [place] [phone] 01/20/2026 2:15 PM COLD ROLLING SUPERVISOR Office Visit [facility] [address] [place] [phone] Paramjit Bravo MD [address] [place] [phone] 04/28/2026 1:30 PM CDT Office Visit [facility] [address] [place] [address] Rachel Sal MD [address] [place] [address] 05/11/2027 3:10 PM CDT Office Visit [facility] [address] [address] Huy Mendiola NP [address] [place] [address] documented as of this encounter Procedures Procedure Name Priority Date/Time Associated Diagnosis Comments CBC WITH DIFFERENTIAL Stat 09/05/2023 3:30 PM CDT Pleurodynia Chest pain on breathing TROPONIN Stat 09/05/2023 3:30 PM CDT Pleurodynia Chest pain on breathing BRAIN NATRIURETIC PEPTIDE, BNP OR PROBNP Stat 09/05/2023 3:30 PM CDT Pleurodynia Chest pain on breathing COMPREHENSIVE METABOLIC PANEL Stat 09/05/2023 3:30 PM CDT Pleurodynia Chest pain on breathing documented in this encounter Results * TROPONIN (09/05/2023 3:30 PM CDT) TROPONIN T, 5TH GEN 10 <=10 ng/L 09/05/2023 4:47 PM CDT [facility] [employer] [facility] Blood Collection / Unknown 09/05/2023 3:30 PM CDT 09/05/2023 4:10 PM CDT Narrative [facility] - 09/05/2023 4:47 PM CDT Troponin Detectable but normal range. Marcella Mcknight NP CHEMISTRY ORDERABL ES Final Result [facility] # [id number] [id number] [place] [address] * COMPREHENSIVE METABOLIC PANEL (09/05/2023 3:30 PM CDT) SODIUM 142 136 - 145 mmol/L 09/05/2023 4:52 PM CDT [facility] POTASSIUM 3.9 3.5 - 5.1 mmol/L 09/05/2023 4:52 PM CDT [facility] CHLORIDE 103 98 - 107 mmol/L 09/05/2023 4:52 PM CDT [facility] CO2 25 22 - 29 mmol/L 09/05/2023 4:52 PM CDT [facility] CALCIUM 9.6 8.8 - 10.2 mg/dL 09/05/2023 4:52 PM CDT [facility] BUN 13 8 - 23 mg/dL 09/05/2023 4:52 PM CDT [facility] CREATININE 0.94 0.51 - 0.95 mg/dL 09/05/2023 4:52 PM CDT [facility] Comment:The GFR result is no t clinically significant on patients <18 or >70 years of age. GLUCOSE 93 74 - 99 mg/dL 09/05/2023 4:52 PM CDT [facility] TOTAL PROTEIN 7.8 6.4 - 8.3 g/dL 09/05/2023 4:52 PM CDT [facility] ALBUMIN 4.1 3.5 - 5.2 g/dL 09/05/2023 4:52 PM CDT [facility] BILIRUBIN TOTAL 0.5 0.2 - 1.0 mg/dL 09/05/2023 4:52 PM CDT [facility] ALKALINE PHOSPHATASE 91 35 - 104 U/L 09/05/2023 4:52 PM CDT [facility] AST 19 10 - 35 U/L 09/05/2023 4:52 PM CDT [facility] ALT 14 <=35 U/L 09/05/2023 4:52 PM CDT [facility] GFR >60 mL/min/1.7 3 sq meter 09/05/2023 4:52 PM CDT [facility] Comment:eGFR calculated with 2020 CKD-EPI equation. Vegetarian diet, extremely high or low muscle mass, and may affect results. Cystatin C with Glomerular Filtration Rate is a suitable alternative for these patients. ANION GAP 14 9 - 20 mmol/L 09/05/2023 4:52 PM CDT [facility] Blood Collection / Unknown 09/05/2023 3:30 PM CDT 09/05/2023 4:10 PM CDT Marcella Mcknight EXPERIMENTAL OUTBOARD MOTORS MECHANIC CHEMISTRY ORDERABL ES Final Result [facility] # [id number] [address] [place] [id number] * (ABNORMAL) CBC WITH DIFFERENTIAL (09/05/2023 3:30 PM CDT) Pathologist [facility] WBC 9.8 4.8 - 10.8 K/uL 09/05/2023 4:22 PM CDT [facility] RBC 4.05(L) 4.20 - 5.40 M/uL 09/05/2023 4:22 PM CDT [facility] HEMOGLOBIN 12.8 12.0 - 16.0 g/dL 09/05/2023 4:22 PM CDT [facility] HEMATOCRIT 39.5 36.0 - 46.0 % 09/05/2023 4:22 PM CDT [facility] MCV 97.5 84.0 - 103.0 fL 09/05/2023 4:22 PM CDT [facility] MCH 31.6 27.0 - 34.0 pg 09/05/2023 4:22 PM CDT [facility] MCHC 32.4 30.0 - 35.0 g/dL 09/05/2023 4:22 PM CDT [facility] K[facility] RDW 13.8 11.0 - 14.5 % 09/05/2023 4:22 PM [facility] RDW-STDEV 50.2 37.0 - 54.0 fL 09/05/2023 4:22 PM [facility] PLATELETS 330 140 - 440 K/uL 09/05/2023 4:22 PM [facility] [employer] [facility] MPV 10.9 8.9 - 12.8 fL 09/05/2023 4:22 PM [facility] [employer] [facility] NEUTROPHILS 61 42 - 75 % 09/05/2023 4:22 PM [facility] [employer] [facility] LYMPHOCYTES 24 24 - 44 % 09/05/2023 4:22 PM [facility] [employer] [facility] MONOCYTES 10 2 - 10 % 09/05/2023 4:22 PM [facility] [employer] [facility] EOSINOPHILS 4 0 - 7 % 09/05/2023 4:22 PM [facility] [employer] [facility] BASOPHILS 1 0 - 1 % 09/05/2023 4:22 PM [facility] IMMATURE GRANULOCYTES 0 0 - 2 % 09/05/2023 4:22 PM [facility] NEUTROPHIL ABSOLUTE 5.99 2.00 - 8.00 K/uL 09/05/2023 4:22 PM [facility] LYMPHOCYTE ABSOLUTE 2.36 1.20 - 4.00 K/uL 09/05/2023 4:22 PM [facility] MONOCYTE ABSOLUTE 0.94(H) 0.10 - 0.60 K/uL 09/05/2023 4:22 PM [facility] [employer] [facility] EOSINOPHIL ABSOLUTE 0.38 0.00 - 0.70 K/uL 09/05/2023 4:22 PM [facility] BASOPHILS ABSOLUTE 0.10 0.00 - 0.20 K/uL 09/05/2023 4:22 PM [facility] IMMATURE GRANULOCYTES ABSOLUTE 0.02 0.00 - 0.10 K/uL 09/05/2023 4:22 PM [facility] [employer] [facility] Blood Collection / Unknown 09/05/2023 3:30 PM CDT 09/05/2023 4:10 PM CDT Marcella Mcknight EXPERIMENTAL OUTBOARD MOTORS MECHANIC HEMATOLOGY ORDERAB LES Final Result Performing Organization Address [facility] Co de Phone Number [facility] CLIA # [id number] [address] [facility] [place] [address] * (ABNORMAL) BRAIN NATRIURETIC PEPTIDE, BNP OR PROBNP (09/05/2023 3:30 PM CDT) PROBNP, N TERMINAL 1,824(H) 0 - 125 pg/mL 09/05/2023 4:52 PM CDT [facility] Blood Collection / Unknown 09/05/2023 3:30 PM CDT 09/05/2023 4:10 PM CDT Marcella Mcknight EXPERIMENTAL OUTBOARD MOTORS MECHANIC CHEMISTRY ORDERABL ES Final Result Performing Organization Address [facility] de Phone Number [facility] CLIA # [id number] [address] [place], [place] [id number] documented in this encounter Visit Diagnoses Diagnosis Pleurodynia Painful respiration Chest pain on breathing Painful respiration documented in this encounter Care Teams Crop Duster Relationship Specialty Start Date End Date Korey Benites MD [address] [address] PCP - General 04/28/04 documented as of this encounter
--- OUTSIDE RECORDS SUMMARY | 2025-08-24 18:38 | XMS_ITS | Encounter Summary ---
Author Organization [facility] Address [address] [facility] [place] [address] Care Team Providers Care Sales Representative Groceries Name Role Phone Korey Benites MD Primary Care Provider [phone] Encounter Details Date Type Department Care Team (Late st Contact Info) Description 07/19/2005 Outpatient Historical [facility] [place] [address] 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
--- OUTSIDE RECORDS SUMMARY | 2025-08-24 18:38 | XMS_ITS | Clinical Summary ---
Author Organization [facility] Address [address] [address] [address] Phone Care Team Providers Care Houseman Name Role Phone Korey Benites MD Primary Care Provider [phone] Allergies Active Allergy Reactions Criticality Noted Date Comments Cefdinir Rash Low 07/14/2016 Dextromethorphan-Guaifenesi n Other (See Comments) 02/21/2013 Heart racing Diphenhydramine Hcl Shortness of Breath/Wheezing High 06/17/2013 Penicillins Rash,Itching High 03/01/2010 Medications nebulizer Length of need 3 months Nebulizer with compressor, Kit: Permanent Nebulizer Kit, 1 per 6 months, filters , areosol mask: No. Name of Medication duoneb. 1 Each 7 Active ipratropium-albut tessa (DUONEB) 0.5 mg-3 mg(2.5 mg base)/3 mL Solution for Nebulization Take 3 mL by inhalation every 6 hours as needed for Shortness of Breath. 120 Each 7 Active cyclobenzaprine (FLEXERIL) 10 mg tablet TAKE ONE TABLET BY MOUTH THREE TIMES DAILY NEEDED FOR SPASM. 90 Tablet 5 9 Active SYMBICORT 80-4.5 mcg/actuation HFA Aerosol Inhaler INHALE TWO PUFFS BY MOUTH TWICE DAILY 11 Gram 1 9 Active dicyclomine (BENTYL) 10 mg capsule Take 2 Capsules (20 mg) by mouth 4 times daily. 720 Capsule 0 Active Pradaxa 150 mg Capsule Take 1 capsule by mouth twice daily 180 Capsule 3 0 Active Cartia XT 300 mg Controlled Delivery 24 hour capsuleIndication s:Paroxysmal atrial fibrillation (CMS/HCC) Take 1 capsule by mouth once daily 90 Capsule 3 0 Active gabapentin (NEURONTIN) 100 mg capsule TAKE 1 TO 3 CAPSULES BY MOUTH THREE TIMES DAILY 270 Capsule 1 0 Active sertraline (ZOLOFT) 100 mg tablet Take 1.5 Tablets (150 mg) by mouth daily. 135 Tablet 1 1 Active atorvastatin (LIPITOR) 80 mg tablet Take 1 tablet by mouth once daily 90 Tablet 1 1 Active montelukast (SINGULAIR) 10 mg tablet TAKE 1 TABLET BY MOUTH ONCE DAILY AT BEDTIME 90 Tablet 1 1 Active albuterol HFA 90 mcg inhaler INHALE 2 PUFFS BY MOUTH EVERY 4 TO 6 HOURS NEEDED 9 Gram 3 1 Active potassium chloride (KLOR-CON) 10 mEq Extended Release tabletIndications :Drug-induced hypokalemia Take 1 tablet by mouth twice daily 180 Tablet 1 1 Active amLODIPine (NORVASC) 5 mg tablet Take 1 tablet by mouth once daily 90 Tablet 1 1 Active lisinopriL (PRINIVIL) 5 mg tabletIndications :Essential hypertension Take 1 Tablet (5 mg) by mouth daily. 90 Tablet 2 1 Active ondansetron (ZOFRAN ODT) 4 mg Tablet, Rapid DissolveIndicatio ns:Non-intractabl e vomiting with nausea, unspecified vomiting type Take 1 Tablet (4 mg) by mouth every 8 hours as needed for Nausea/Emesis. Dissolve tablet on top of tongue, then swallow with saliva. 20 Tablet 1 Active benzonatate (TESSALON) 200 mg capsuleIndication s:Cough Take 1 Capsule (200 mg) by mouth 3 times daily as needed for Cough. 30 Capsule 1 Active Active Problems Problem Noted Date Diagnosed Date History of colon polyps 02/24/2021 Calcified granuloma of lung 11/17/2020 Overview (11/17/2020): Added per PV query response Prediabetes 03/11/2020 Mild episode of recurrent major depressive disor dee 09/05/2019 Stage 3 chronic kidney disease 09/13/2018 Lower leg DVT (deep venous thromboembolism), chr onic 08/17/2017 Vitamin D insufficiency 07/17/2016 Trigger middle finger of left hand 07/14/2016 Irritable bowel syndrome with diarrhea 6 IFG (impaired fasting glucose) 04/27/2015 Morbid obesity with BMI of 40.0-44.9, adult 06/2015 Intermittent asthma 10/01/2014 Nontoxic multinodular goiter 02/21/2013 Paroxysmal atrial fibrillation 12/03/2012 Bulging discs 08/11/2010 Thoracic or lumbosacral neuritis or radiculitis 08/11/2010 Degeneration of lumbar or lumbosacral interverte bral disc 03/01/2010 Hyperlipidemia 03/01/2010 Fibromyalgia 03/01/2010 Essential hypertension 02/16/2010 Resolved Problems Problem Noted Date Diagnosed Date Resolved Date Prediabetes 09/23/2019 03/11/2020 Loud snoring 09/05/2019 03/11/2020 Mixed hyperlipidemia 09/05/2019 020 Major depression 08/17/2017 03/11/2020 Morbid obesity with body mas s index of 40.0-49.9 07/14/2016 03/11/2020 Morbid obesity with BMI of 45.0-49.9, adult 03/10/2016 03/11/2020 Lumbago 04/27/2015 03/11/2020 DVT of leg (deep venous thrombosis) 02/26/2014 03/11/2020 DVT of leg (deep venous thrombosis) 12/03/2012 02/26/2014 Morbid obesity 11/01/2012 03/14/2018 Impaired fasting glucose 03/21/2011 Depressive disorder 08/13/2010 03/11/20 20 LBP (low back pain) 08/11/2010 03/11/20 20 Asthma 05/05/2010 03/11/2020 Immunizations Immunization Administration Dates Next Due (PNEUMOVAX 23)(50 YRS UP) PN EUMOCOCCAL POLYSACCHARIDE (PPV23) 0.5 ML, IM 09/13/2018 (PREVNAR 13)(6 WKS UP) PNEUM OCOCCAL CONJUGATE (PCV13) 0.5 ML, IM 09/05/2019,08/28/2014 (SPIKEVAX) (12 YRS UP PRIMAR Y SERIES) COVID-19 VACCINE - MRNA-1273(PF) 100 MCG/0.5 ML IM SUSP 02/28/2021 INFLUENZA VACCINE HIGH DOSE QUADRIVALENT 65 YR UP PF IM 10/12/2020 INFLUENZA VACCINE QUADRIVALE NT 3 YR UP PF IM 10/03/2016 Influenza Seasonal Unspecifi ed Formulation IM 08/01/2017,09/18/2003 Influenza Vaccine High Dose 65+ Yrs IM 9,09/13/2018 Influenza Vaccine Quad Split 3+ Yrs Im 5,08/28/2014 Influenza Vaccine Split 3+ Yrs PF IM 11/2012,08/22/2012,08/17/2011,09/13 Family History Medical History Relation Name Comments Other Brother Heart Disease Father Hypertension Father Stroke Father Colon Cancer Maternal Uncle Diabetes Mother Hypertension Mother Other Mother Breast Cancer Other 1 mat aunt x2 PT declined as sessment Cancer Other 2 PGM thyroid CA Other Sister 1 Relation Name Status Comments Brother Father Alive Maternal Uncle Mother Alive Other 1 mat aunt x2 Alive Other 2 PGM Alive Sister 1 Alive Sister 2 Alive Sister 3 Alive Sister 4 Alive Social History Tobacco Use Types Packs/Day Years Used Date Smoking Tobacco: Never Smokeless Tobacco: Never Tobacco Cessation:Counseling Given: Yes Alcohol Use Standard Drinks/Week Comments No 0 (1 standard drink = 0.6 oz pur e alcohol) Comments No Sex and Gender Information Value Date Recorded Sex Assigned at Not on file 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 Gender Identity Not on file Sexual Orientation Not on file Occupation Industry Job Start Date Job End Date Not on file Not on file Not on file Not on file Last Filed Vital Signs Vital Sign Reading Time Taken Comments Blood Pressure 126/70 05/17/2021 11:30 AM CDT Pulse 99 05/17/2021 11:30 AM CDT Temperature 36.1 C (96.9 F) 05/17/2021 11:30 AM CDT Respiratory Rate 22 05/17/2021 11:30 AM CDT Oxygen Saturation 97% 05/17/2021 11:30 AM CDT Inhaled Oxygen Concentration - - Weight 113.4 kg (250 lb) 05/17/2021 11:30 AM CDT Height 162.6 cm (5' 4 ) 05/17/2021 11:30 AM CDT Body Mass Index 42.91 05/17/2021 11:30 AM CDT Plan of Treatment Health Maintenance Due Date Last Done Comments DTAP/TDAP/TD VACCINES (1 - Tdap) 02/28/1971 FIT-DNA Q 3 years 02/28/1997 FIT/FOBT Q 1 year 02/28/1997 Flex Sig/CT Colonography Q 5 years 02/28/1997 ZOSTER VACCINE (1 of 2) 02/28/2002 RSV VACCINE (60+ or ) (1 - Risk 60-74 years 1-dose series) 2012 BREAST CANCER SCREENING 05/24/2019 05/24/20 18, 05/24/2018, 05/22/2018, Additional history exists Medicare Advantage ([place]) Preventative Visit/Annual Wellness Visit 11/20/2024 11/16/2020, 05/22/2018, 08/17/2017, Additional history exists INFLUENZA VACCINE (#1) 2025 0, 09/05/2019, 09/13/2018, Additional history exists COVID-19 Vaccine (2 - 2024-2 6 season) 2025 02/28/2021 OSTEOPOROSIS SCREENING 07/29/2025 07/29/2020 COLORECTAL SCREENING 02/24/2026 02/24/2021, 02/24/2021, 02/24/2021, Additional history exists Colorectal Cancer Screening 02/24/2026 PNEUMOCOCCAL VACCINE 50+ YEARS Completed 1 , 09/13/2018, 08/28/2014 Procedures Procedure Name Priority Date/Time Associated Diagnosis Comments COLONOSCOPY REPORT 02/24/2021 2: 07 PM CDT XR DEXA BONE DENSITY AXIAL 1 OR MORE SITES Routine 07/29/2020 12:50 PM CDT Postmenopausal MAMMO 3D [place] SCREEN BILAT W OR WO CAD Routine 05/22/2018 10:26 AM CDT Encounter for screening mammogram for breast cancer from Last 3 Months or Most Recently Relevant to Health Maintenance Results * COLONOSCOPY REPORT (02/24/2021 2:07 PM CDT) Narrative Procedure Note Yoseph Sanchez MD - 02/24/2021 2:06 PM CDT [facility] GI Patient Name: Claritza De Luna Procedure Date: 02/24/2021 Date of : 1950 Admit Type: Outpatient Age: 70 Attending MD: Yoseph Sanchez , Procedure: Colonoscopy Indications: Surveillance: Personal history of adenomatous polyps on last colonoscopy > 5 years ago Providers: Yoseph Sanchez Referring MD: Medicines: Monitored Anesthesia Care Complications: No immediate complications. Procedure: After I obtained informed consent, the scope was passed under direct vision. Throughout the procedure, the patient's blood pressure, pulse, and oxygen saturations were monitored continuously. The Colonoscope was introduced through the anus and advanced to the cecum, identified by appendiceal orifice and ileocecal valve. The colonoscopy was performed without difficulty. The patient tolerated the procedure well. The quality of the bowel preparation was good. Estimated Blood Loss: Estimated blood loss was minimal. Findings: Internal hemorrhoids were found during retroflexion. The hemorrhoids were small. A 5 mm polyp was found in the transverse colon. The polyp was sessile. The polyp was removed with a cold snare. Resection and retrieval were complete. Verification of patient identification for the specimen was done. Estimated blood loss was minimal. Impression: - Internal hemorrhoids. - One 5 mm polyp in the transverse colon, removed with a cold snare. Resected and retrieved. Recommendation: - Repeat colonoscopy in 5 years for surveillance. Yoseph Sanchez, 02/24/2021 2:06:00 PM Number of Addenda: 0 Note Initiated On: 02/24/2021 1:17 PM Scope Withdrawal Time 0 hours 10 minutes 22 seconds Scope In: 1:45:03 PM Scope Out: 2:02:37 PM [address] [place], [place] us Yoseph Sanchez MD GI PROCEDURE ORDERABLES Final Result * XR DEXA BONE DENSITY AXIAL 1 OR MORE SITES (07/29/2020 12:50 PM CDT) Anatomical Region Laterality Modality Nuclear Medicine 07/29/2020 12:5 0 PM CDT Impressions 07/29/2020 4:14 PM CDT IMPRESSION: Abnormal examination Low bone density/osteopenic values are present in the upper lumbar spine lying significantly below the average the patient's age-matched control consistent with accelerated bone demineralization as the cause of her osteopenia. Consider remeasuring no sooner than two years only as clinically needed. Narrative 07/29/2020 4:14 PM CDT DEXA Evaluation of the Lumbar Spine and Left Proximal Femur Reason for Consultation: Ovarian failure. Evaluation of bone mineral density. The following absorptiometry data were obtained. The quality of this examination is acceptable with regards to count density, processed images, data display and lack of important artifacts (including but not limited to motion and attenuation artifacts). Serial examination number one. Lumbar spine images and individual level measurements demonstrate degenerative changes at lower levels resulting in spurious elevation of bone density. L1-L2 BMD (g/cm2): 0.994 Adult T-score: -1.4 Adult Z-score: -1.0 Left Femoral Neck BMD (g/cm2): 0.913 Adult T-score: -0.6 Adult Z-score: 0.1 Left Total Hip BMD (g/cm2): 0.968 Adult T-score: -0.3 Adult Z-score: 0.1 Procedure Note Enoch Mesa MD - 07/29/2020 DEXA Evaluation of the Lumbar Spine and Left Proximal Femur Reason for Consultation: Ovarian failure. Evaluation of bone mineral density. The following absorptiometry data were obtained. The quality of this examination is acceptable with regards to count density, processed images, data display and lack of important artifacts (including but not limited to motion and attenuation artifacts). Serial examination number one. Lumbar spine images and individual level measurements demonstrate degenerative changes at lower levels resulting in spurious elevation of bone density. L1-L2 BMD (g/cm2): 0.994 Adult T-score: -1.4 Adult Z-score: -1.0 Left Femoral Neck BMD (g/cm2): 0.913 Adult T-score: -0.6 Adult Z-score: 0.1 Left Total Hip BMD (g/cm2): 0.968 Adult T-score: -0.3 Adult Z-score: 0.1 IMPRESSION: Abnormal examination Low bone density/osteopenic values are present in the upper lumbar spine lying significantly below the average the patient's age-matched control consistent with accelerated bone demineralization as the cause of her osteopenia. Consider remeasuring no sooner than two years only as clinically needed. Silvia Antoine LOFT PATTERNMAKER DIAGNOSTIC IMAGING ORDERABLES Final Result * MAMMO SCRN BILAT 3D CORINNA W OR WO CAD (05/22/2018 10:26 AM CDT) Anatomical Region Laterality Modality Breast Bilateral Mammography Narrative 05/24/2018 7:49 AM CDT Bilateral Mammogram Reason for Exam: Screening Comparison: Compared to: 10/03/2016 MAMMO DIGITAL SCREEN BILAT, 09/09/2015 MAMMO DIGITAL SCREEN BILAT, 08/28/2014 MAMMO DIGITAL SCREEN BILAT, 03/26/2013 MAMMO DIGITAL SCREEN BILAT, and 02/22/2012 MAMMO DIGITAL SCREEN BILAT Technique: 3D MLO and CC digital tomosynthesis images were acquired and synthesized 2D images (C view) were generated. This digital mammogram was also analyzed by the Computer Aided Detection System CAD). Breast Composition: The breasts are almost entirely fatty. There are no suspicious masses, areas of architectural distortions, or microcalcifications to suggest malignancy. No significant new findings since the prior mammogram(s). Korey Benites MD MAMMO ORDERABLES Final Resu lt from Last 3 Months or Most Recently Relevant to Health Maintenance Insurance [place]ID [place] DUAL COMPLETE [facility] PPO D-SNP Advance Directives For more information, please contact: [phone] * Full Code (Latest Code Status on File) Date Activated Date Inactivated Comments 02/24/2021 1:06 PM 02/24/2021 5:06 PM * Full Code Date Activated Date Inactivated Comments 07/14/2017 7:47 AM 07/14/2017 3:13 PM * Full Code Date Activated Date Inactivated Comments 06/24/2014 8:07 AM 06/24/2014 11:26 AM * Full Code Date Activated Date Inactivated Comments 09/24/2012 6:49 AM 09/24/2012 4:22 PM * Full Code Date Activated Date Inactivated Comments 09/28/2010 7:47 AM 09/28/2010 3:16 PM Care Teams Houseman Relationship Specialty Start Date End Date Korey Benites MD [address] [address] [place] [phone] PCP - General 04/28/04
--- OUTSIDE RECORDS SUMMARY | 2025-08-24 18:38 | XMS_ITS | Encounter Summary ---
Author Organization [facility] Address [address] [place] [address] Care Team Providers Care Deli Bakery Clerk Name Role Phone Korey Benitse MD Primary Care Provider [phone]- [phone] Encounter Details Date Type Department Care Team (Latest Contact Info) Description 08/19/2005 Outpatient Historical [facility] Services-Tristen Booker Marianela [address] [place] [address] Korey Benites MD [address] [place] [address] HYPERLIPIDEMIA NEC/NOS (Primary Dx) Social History Tobacco Use Types Packs/Day Years Used Date Smoking Tobacco: Never Assessed Comments Unknown Sex and Gender Information Value Date Recorded Sex Assigned at Not on file 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
--- OUTSIDE RECORDS SUMMARY | 2025-08-24 18:38 | XMS_ITS | Encounter Summary ---
Author Organization [facility] Address [address] [place] [address] Care Team Providers Care Divorce Attorney Name Role Phone Korey Benites MD Primary Care Provider [phone]- [phone] Reason for Referral * Outpatient Services (Routine) - Closed Specialty Diagnoses / Procedures Referred By Contac t Referred To Contact Diagnoses Other screening mammogram Procedures MAMMO DIGITAL SCREEN BILAT Korey Benites MD [address] [address] Phone: tel: fax: Referral ID Status Reason Start Date Expiration Date Visits Re quested Visits Authorized [id number] Closed 08/04/2015 09/03/2016 1 1 Encounter Details Date Type Department Care Team (Latest Contact Info) Description 08/04/2015 Ancillary Orders [facility] Pre-Registration [place] CALL TO MAKE APPOINTMENT ONLY [address] [place] [address] Korey Benites MD [address] [address] Other screening mammogram (Primary Dx) Social History Tobacco Use Types Packs/Day Years Used Date Smoking Tobacco: Never Smokeless Tobacco: Never Comments:5'4 Alcohol Use Standard Drinks/Week Comments No 0 (1 standard drink = 0.6 oz pur e alcohol) Comments No Sex and Gender Information Value Date Recorded Sex Assigned at Not on file 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 Gender Identity Not on file Sexual Orientation Not on file Occupation Industry Job Start Date Job End Date Not on file Not on file Not on file Not on file documented as of this encounter Plan of Treatment Not on file documented as of this encounter Results * MAMMO DIGITAL SCREEN BILAT (09/09/2015 12:04 PM CDT) Anatomical Region Laterality Modality Breast Bilateral Mammography Narrative 09/09/2015 3:10 PM CDT Bilateral Mammogram Reason for Exam: Screening Comparison: Compared to: 08/28/2014 MAMMO DIGITAL SCREEN BILAT, 03/26/2013 MAMMO DIGITAL SCREEN BILAT, 02/22/2012 MAMMO DIGITAL SCREEN BILAT, 02/03/2010 MAMMO SCREENING BILAT MOBILE, 03/10/2009 MAMMO UNILATERAL DIAG RIGHT, 03/10/2009 MAMMO BREAST US RT Findings: Bilateral CC and MLO views were obtained. This examination was reviewed with the aid of a computer-aided detection system(CAD). The breast tissue density is fatty. No significant new findings since the prior mammogram(s). us Korey Benites MD MAMMO ORDERABLES Final Resu lt documented in this encounter Visit Diagnoses Diagnosis Other screening mammogram- Primary Visit for screening mammogram Other screening mammogram documented in this encounter Care Teams Divorce Attorney Relationship Specialty Start Date End Date Korey Benites MD [address] [facility] [address] [place] [address] PCP - General 04/28/04 documented as of this encounter
--- OUTSIDE RECORDS SUMMARY | 2025-08-24 18:38 | XMS_ITS | Encounter Summary ---
Author Organization [facility] Address [address] [place] [address] Care Team Providers Care Diesel Engineer Name Role Phone Korey Benites MD Primary Care Provider [phone]- [phone] Encounter Details Date Type Department Care Team (Latest Contact Info) Description 04/06/2006 Outpatient Historical [facility] [address] 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
--- OUTSIDE RECORDS SUMMARY | 2025-08-24 18:38 | XMS_ITS | Encounter Summary ---
Author Organization [facility] Address [address] [place] [address] Care Team Providers Care Oil Refinery Process Technician Name Role Phone Korey Benites MD Primary Care Provider [phone] Reason for Visit * Reason Onset Date Comments Medication Refill 08/23/2025 Encounter Details Date Type Department Care Team (Late st Contact Info) Description 08/23/2025 Refill [facility] [address] [place] [address] Silvia Antoine, [facility] [address] [facility] [address] [place] [address] Social History Tobacco Use Types Packs/Day Years [...] of Transportation (Non-Medical) Not on file 11/22/2022 Feeling Safe Answer Date Recorded Are you in a relationship wi th someone who hurts you emotionally and/or physically? No 08/15/2025 Food Insecurity Answer Date Recorded Patient needs follow up regardin 08/14/2025 Transportation Needs Answer Date Record ed Patient needs follow up regardin 08/14/2025 Housing Stability Answer Date Recorded Social/Environmental Concerns No concerns Utility Needs Answer Date Recorded Patient needs follow up regardin 08/14/2025 Comments No Sex and Gender Information Value Date Recorded Sex Assigned at Not on file Legal Sex Female 1:54 PM REGISTERED NURSE AMBULATORY Gender Identity Not on file Sexual Orientation Not on file documented as of this encounter Plan of Treatment Upcoming Encounters Date Type Department Care Team (Late st Contact Info) Description 09/15/2025 11:45 AM CDT Office Visit [facility] [address] [place] [address] Korey Benites MD [address] [facility] [address] [place] [phone] 10/30/2025 12:30 PM REGISTERED NURSE AMBULATORY Office Visit [facility] [place] [address] [place] [address] Silver Benites MD [address] [place] [address] 12/29/2025 11:00 AM REGISTERED NURSE AMBULATORY Office Visit [facility] [address] [facility] [address] [place] [address] Octavio Tabares MD [address] [facility] [address] [place] [phone] Azalia Ferris, KATERIN [address] [facility] [address] [place] [address] 01/20/2026 2:15 PM REGISTERED NURSE AMBULATORY Office Visit [facility] [address] [facility] [address] [place] [phone] Paramjit Bravo MD [address] [facility] [address] [place] [address] 04/28/2026 1:30 PM CDT Office Visit [facility] [address] [place] [phone] Rachel Sal MD [address] [place] [phone] 05/11/2027 3:10 PM CDT Office Visit [facility] [address] [facility] [address] [place] [address] Huy Mendiola NP [address] [place] [address] documented as of this encounter Visit Diagnoses Not on filedocumented in this encounter Additional Health Concerns Assessment Noted Time PHQ-9 Depression Total Score: 1 03/10/20 25 3:12 PM CDT documented as of this encounter Care Teams Oil Refinery Process Technician Relationship Specialty Start Date End Date Korey Benites MD [address] [place] [phone] PCP - General 04/28/04 documented as of this encounter
--- OUTSIDE RECORDS SUMMARY | 2025-08-24 18:38 | XMS_ITS | Encounter Summary ---
Author Organization [facility] Address [address] [place] [address] Care Team Providers Care Copy Center Associate Name Role Phone Korey Benites MD Primary Care Provider [phone]- [phone] Reason for Referral * Outpatient Services (Routine) - Closed Specialty Diagnoses / Procedures Referred By Contac t Referred To Contact Diagnoses Other screening mammogram Procedures MAMMO DIGITAL SCREEN BILAT Korey Benites MD [address] [address] Phone: tel: fax: [facility] Pre-Registration [place] CALL TO MAKE APPOINTMENT ONLY [address] [place] [address] Phone: tel: fax: Referral ID Status Reason Start Date Expiration Date Visits Re quested Visits Authorized [id number] Closed 03/04/2014 04/04/2015 1 1 Encounter Details Date Type Department Care Team (Latest Contact Info) Description 03/04/2014 Ancillary Orders [facility] Pre-Registration [place] CALL TO MAKE APPOINTMENT ONLY [address] [place] [address] Korey Benites MD [address] [address] Other screening mammogram (Primary Dx) Social History Tobacco Use Types Packs/Day Years Used Date Smoking Tobacco: Never Smokeless Tobacco: Never Comments:5'4 Alcohol Use Standard Drinks/Week Comments No 0 (1 standard drink = 0.6 oz pur e alcohol) Comments No Sex and Gender Information Value Date Recorded Sex Assigned at Not on file 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 Gender Identity Not on file Sexual Orientation Not on file Occupation Industry Job Start Date Job End Date Not on file Not on file Not on file Not on file documented as of this encounter Plan of Treatment Not on file documented as of this encounter Results * MAMMO DIGITAL SCREEN BILAT (08/28/2014 10:25 AM CDT) Anatomical Region Laterality Modality Breast Bilateral Mammography Narrative 08/29/2014 12:16 PM CDT Bilateral Mammogram Reason for Exam: Screening Comparison: Compared to: 03/26/2013 MAMMO DIGITAL SCREEN BILAT, 02/22/2012 MAMMO DIGITAL SCREEN BILAT 8.5.05 Findings: Bilateral CC and MLO views were obtained. This examination was reviewed with the aid of a computer-aided detection system(CAD). The breast tissue density is fatty. No significant new findings since the prior mammogram(s). Procedure Note Arely Christopher MD - 08/29/2014 Bilateral Mammogram Reason for Exam: Screening Comparison: Compared to: 03/26/2013 MAMMO DIGITAL SCREEN BILAT, 02/22/2012MAMMO DIGITAL SCREEN BILAT 8.5.05 Findings: Bilateral CC and MLO views were obtained. This examination was reviewed with the aid of a computer-aided detectionsystem(CAD). The breast tissue density is fatty. No significant new findings since the prior mammogram(s). us Korey Benites MD MAMMO ORDERABLES Final Resu lt documented in this encounter Visit Diagnoses Diagnosis Other screening mammogram- Primary Other screening mammogram documented in this encounter Care Teams Copy Center Associate Relationship Specialty Start Date End Date Korey Benites MD [address] [facility] [address] [place] [address] PCP - General 04/28/04 documented as of this encounter
--- OUTSIDE RECORDS SUMMARY | 2025-08-24 18:38 | XMS_ITS | Clinical Summary ---
Author Organization [facility] Address [address] [place] [address] Phone Care Team Providers Care Stockroom Associate Name Role Phone Korey Benites MD Primary Care Provider Allergies Active Allergy Reactions Criticality Noted Date Comments Cefdinir Rash Low 07/14/2016 Dextromethorphan-Guaifenesi n Other (See Comments) 02/21/2013 Heart racing Diphenhydramine Hcl Shortness of Breath/Wheezing High 06/17/2013 Penicillins Rash,Itching High 03/01/2010 Semaglutide Diarrhea,Nausea and Vomiting Low 05/22/2023 Medications nebulizer Length of need 3 monthsNebulizer with compressor, Kit: Permanent Nebulizer Kit, 1 per 6 months, filters , areosol mask: No. Name of Medication duoneb. 1 Each 0 017 Active cholecalciferol (vitamin D3) 125 mcg (5,000 unit) tablet Take 5,000 Units by mouth daily. Active acetaminophen (TYLENOL) 500 mg tablet Take 2 Tablets (1,000 mg) by mouth every 8 hours. 90 Tablet 02/22/20 23 8:51 AM CDT 023 Active magnesium hydroxide (MILK OF MAGNESIA) 400 mg/5 mL suspension Take 30 mL by mouth 1 time daily as needed for Constipation. Active omeprazole (PriLOSEC) 20 mg Capsule, Delayed Release(E.C.) Take 20 mg by mouth Continuous as needed. Active docusate sodium (COLACE) 100 mg capsule Take 1 Capsule (100 mg) by mouth 2 times daily. 60 Capsule 04/18/20 11:53 AM CDT Active polyethylene glycol 3350 (MIRALAX) 17 gram/dose Powder Take 1 Scoop (17 Grams) by mouth daily. Mix in liquid and drink as directed. 510 Gram 04/18/20 24 11:53 AM CDT Active potassium chloride (K-TAB) 20 mEq Extended Release tablet Take 1 Tablet (20 mEq) by mouth daily with breakfast. 90 Tablet 3 024 Active sertraline (ZOLOFT) 100 mg tabletIndication s:Moderate episode of recurrent major depressive disorder (CMS/HCC) Take 2 Tablets (200 mg) by mouth daily. 180 Tablet 3 024 Active budesonide-formo teroL (SYMBICORT) 160-4.5 mcg/actuation HFA Aerosol InhalerIndicatio ns:Mild intermittent asthma without complication Take 2 Puffs by inhalation 2 times daily. 10.2 Gram 3 024 Active ipratropium-albu teroL (DUONEB) 0.5 mg-3 mg(2.5 mg base)/3 mL Solution for Nebulization Take 3 mL by inhalation every 6 hours as needed for Shortness of Breath. 120 Each Active hyoscyamine 0.[address] 1 Tablet (0.125 mg) under tongue every 6 hours as needed for Spasm. 60 Tablet 1 024 Active Nebulizer Accessories Kit Needing face mask with tubing 1 Each 1 025 Active diltiaZEM (CARDIZEM CD) 240 mg Controlled Delivery 24 hour capsuleIndicatio ns:Paroxysmal atrial fibrillation (CMS/HCC) Take 1 Capsule (240 mg) by mouth daily. 90 Capsule 3 025 Active buPROPion HCL (Wellbutrin XL) 150 mg Extended Release 24 hour tabletIndication s:Moderate episode of recurrent major depressive disorder (CMS/HCC) Take 1 Tablet (150 mg) by mouth daily in the morning. 90 Tablet 3 025 Active albuterol sulfate HFA 90 mcg/actuation aerosol inhaler Take 2 Puffs by inhalation every 6 hours as needed for Shortness of Breath. 9 Gram 5 025 Active dabigatran etexilate (Pradaxa) 150 mg CapsuleIndicatio ns:PAF (paroxysmal atrial fibrillation),At rial fibrillation, unspecified type (CMS/HCC),Perman ent atrial fibrillation (CMS/HCC),Atrial fibrillation and flutter Take 1 Capsule (150 mg) by mouth 2 times daily. 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 Heated tubing A4604 1/3mo,water chamber A7046 1/6mo,filter disp A7038 2/mo,Reusable filter A7039 1/6mo, Chin strap A7036 a/6mo JUDE 99mo DX: MARNIE (G47.33) 1 Each 025 Active atorvastatin (LIPITOR) 80 mg tabletIndication s:Dyslipidemia Take 1 tablet by mouth once daily 90 Tablet 3 025 Active cyclobenzaprine (FLEXERIL) 10 mg tabletIndication s:Neck pain TAKE 1 TABLET BY MOUTH THREE TIMES DAILY NEEDED FOR SPASM 90 Tablet 025 Active HYDROcodone-acet aminophen (NORCO) 7.5-325 mg TabletIndication s:Degeneration of lumbar or lumbosacral intervertebral disc,Fibromyalgi a Take 1 Tablet by mouth every 4 hours as needed for Pain, Moderate. Max Daily Amount: 6 Tablets 90 Tablet 025 Active furosemide (LASIX) 40 mg tabletIndication s:Essential hypertension,Hea rt failure with preserved left ventricular function (HFpEF) Take 1 tablet by mouth once daily 90 Tablet 3 025 Active gabapentin (NEURONTIN) 100 mg capsule TAKE 1 TO 3 CAPSULES BY MOUTH THREE TIMES DAILY 270 Capsule 1 025 Active amiodarone (CORDARONE) 200 mg tablet Take 1 Tablet (200 mg) by mouth daily. Stop on 09/19/2025 Active metoprolol succinate (TOPROL XL) 25 mg Extended Release 24 hour tablet Take 0.5 Tablets by mouth daily. 025 2024 Discontinued gabapentin (NEURONTIN) 100 mg capsule TAKE 1 TO 3 CAPSULES BY MOUTH THREE TIMES DAILY 270 Capsule 1 025 2024 Discontinued( Reorder) furosemide (LASIX) 40 mg tablet Take 1 tablet by mouth once daily 90 Tablet 025 2024 Discontinued cyclobenzaprine (FLEXERIL) 10 mg tabletIndication s:Neck pain TAKE 1 TABLET BY MOUTH THREE TIMES DAILY NEEDED FOR SPASM 90 Tablet 025 2024 Discontinued HYDROcodone-acet aminophen (NORCO) 7.5-325 mg TabletIndication s:Degeneration of lumbar or lumbosacral intervertebral disc,Fibromyalgi a Take 1 Tablet by mouth every 4 hours as needed for Pain, Moderate. Max Daily Amount: 6 Tablets 90 Tablet 025 2024 Discontinued( Reorder) amiodarone (CORDARONE) 200 mg tablet Take 1 Tablet (200 mg) by mouth daily. 30 Tablet 1 025 2024 Discontinued Active Problems Problem Noted Date Diagnosed Date Obstructive sleep apnea 07/24/2025 Atrial fibrillation, persistent 06/25/2025 Chronic anticoagulation 06/24/2025 Typical atrial flutter 06/24/2025 Apical variant hypertrophic cardiomyopathy 01/14 Heart failure with preserved left ventricular function (HFpEF) 12/05/2024 Moderate episode of recurrent major depressive d isorder 12/05/2024 History of revision of total knee arthroplasty 0 06/10/2024 Osteopenia of multiple sites 04/03/2024 Muscle spasm 04/03/2024 Primary osteoarthritis of left knee 01/30/2023 History of DVT (deep vein thrombosis) - LLE 08/09 12 01/30/2023 Anxiety 01/30/2023 GERD without esophagitis 01/30/2023 History of colon polyps 02/24/2021 Prediabetes 03/11/2020 Mild episode of recurrent major depressive disor dee 09/05/2019 Chronic kidney disease, stage 3a 09/13/2018 Lower leg DVT (deep venous thromboembolism), chr onic 08/17/2017 Vitamin D insufficiency 07/17/2016 Trigger middle finger of left hand 07/14/2016 Irritable bowel syndrome with diarrhea 6 Morbid obesity with BMI of 40.0-44.9, adult 06/2015 IFG (impaired fasting glucose) 04/27/2015 Intermittent asthma 10/01/2014 Nontoxic multinodular goiter 02/21/2013 Longstanding persistent atrial fibrillation 11/20 Bulging discs 08/11/2010 Thoracic or lumbosacral neuritis or radiculitis 08/11/2010 Degeneration of lumbar or lumbosacral interverte bral disc 03/01/2010 Hyperlipidemia 03/01/2010 Fibromyalgia 03/01/2010 Essential hypertension 02/16/2010 Resolved Problems Problem Noted Date Diagnosed Date Resolved Date Encounter for post surgical wound check 04/30/2024 04/30/2024 Pneumonia of left lung due t o infectious organism 09/05/2023 04/03/2024 Pleuritic chest pain 09/05/2023 024 Preoperative general physical examination 01/30/2023 04/30/2024 Calcified granuloma of lung 11/17/2020 08/23/2021 Overview (03/19/2021): Added per PV query response Prediabetes 09/23/2019 03/11/2020 Mixed hyperlipidemia 09/05/2019 020 Loud snoring 09/05/2019 03/11/2020 Major depression 08/17/2017 03/11/2020 Morbid obesity with [...] pain) 08/11/2010 03/11/20 20 Asthma 05/05/2010 03/11/2020 Encounters Date Type Department Care Team Description [facility]/23[facility] [place] [address] [place] [phone] Silvia Antoine, CHAMPION OF SUSTAINABLE DESIGN 08/23/2025 [facility] [address] [facility] [address] [place] [phone] Octavio Tabares MD PAF (paroxysmal atrial fibrillation); Atrial fibrillation, unspecified type (CMS/HCC); Permanent atrial fibrillation (CMS/HCC); Atrial fibrillation and flutter 08/15/2025 7:36 AM CDT Anesthesia Event [facility] [address] [place] [phone] Shemar Wilhelm II, DO Brett, Michael, CRNA 08/15/2025 7:30 AM CDT - 08/15/2025 1:05 PM CDT Surgery [facility] Card[facility] [place] [phone] Paramjit Bravo MD PVI Ablation 08/15/2025 5:51 AM CDT - 08/15/2025 6:06 PM CDT Hospital Encounter [facility] [address] [place] [phone] Paramjit Bravo MD Atrial fibrillation, persistent (CMS/HCC) Discharge Disposition: Home or Self Care 08/15/2025 Telephone [facility] [address] [facility] [address] [place] [phone] Korey Benites MD to rj with out new Dr's 08/14/2025 11:05 AM CDT - 08/14/2025 11:59 PM CDT Hospital Encounter [facility] Echo [address] [place] [phone] Paramjit Bravo MD Discharge Disposition: Home or Self Care 08/14/2025 10:28 AM CDT - 08/14/2025 11:59 PM CDT Hospital Encounter [facility] Pre [facility] [place] [address] [place] [phone] Paramjit Bravo MD Discharge Disposition: Home or Self Care 08/09/2025 [facility] [place] [address] [place] [address] Korey Benites MD 08/04/2025 [facility] [place] [address] [facility] [address] [place] [address] Korey Benites MD Degeneration of lumbar or lumbosacral intervertebral disc; Fibromyalgia 08/01/2025 [facility] [address] [facility] [address] [place] [address] Octavio Tabares MD Essential hypertension (Primary Dx); Heart failure with preserved left ventricular function (HFpEF) ([facility] 07/31/2025 [facility] [place] [facility] [address] [place] [address] Korey Benites MD Degeneration of lumbar or lumbosacral intervertebral disc; Fibromyalgia 07/29/2025 [facility] [place] [place] [address] Korey Benites MD Neck pain 07/25/2025 [facility] [address] [facility] [address] [place] [address] Azalia Ferris NP Dyslipidemia (Primary Dx) 07/24/2025 2:10 PM CDT Office Visit [facility] [address] [facility] [address] [place] [address] Huy Mendiola NP Obstructive sleep apnea (Primary Dx) 07/09/2025 Telephone [facility] [address] [place] [phone] Paramjit Bravo MD refill 07/01/2025 Refill [facility] [place] [address] [place] [address] Car Cano MD Degeneration of lumbar or lumbosacral intervertebral disc; Fibromyalgia 07/01/2025 Refill [facility] [place] [address] [place] [address] Korey Benites MD Neck pain 06/25/2025 Prep for Surgery [place] [address] [place] [phone] Paramjit Bravo MD Typical atrial flutter (CMS/HCC) (Primary Dx); Atrial fibrillation, persistent (CMS/HCC) 06/24/2025 3:15 PM CDT Office Visit [place] [address] [place] [phone] Octavio Tabares MD Atrial fibrillation, permanent (CMS/HCC) (Primary Dx); Essential hypertension; Heart failure with preserved left ventricular function (HFpEF) (CMS/HCC) 06/24/2025 2:00 PM CDT Office Visit [place] [address] [place] [phone] Paramjit Bravo MD Longstanding persistent atrial fibrillation (CMS/HCC) (Primary Dx); Typical atrial flutter (CMS/HCC); Apical variant hypertrophic cardiomyopathy (CMS/HCC); Chronic anticoagulation 06/24/2025 Orders Only [place] [address] [place] [phone] Paramjit Bravo MD Longstanding persistent atrial fibrillation (CMS/HCC) (Primary Dx); Typical atrial flutter (CMS/HCC); Chronic anticoagulation 06/20/2025 Telephone [facility] [address] [facility] [address] [place] [address] Octavio Tabares MD Asking to reschedule 06/17/2025 Orders Only [facility] [address] [facility] [address] [place] [address] Paramjit Bravo MD Longstanding persistent atrial fibrillation (CMS/HCC) (Primary Dx) 06/08/2025 Refill [facility] [address] [place] [address] Silvia Antoine, CHAMPION OF SUSTAINABLE DESIGN 06/03/2025 Refill [facility] [place] [address] [place] [address] Korey Benites MD Degeneration of lumbar or lumbosacral intervertebral disc; Fibromyalgia 05/31/2025 Refill [facility] [place] [phone] Korey Benites MD Neck pain from Last 3 Months Immunizations Immunization Administration Dates Next Due (PNEUMOVAX 23)(50 YRS UP) PN EUMOCOCCAL POLYSACCHARIDE (PPV23) 0.5 ML, IM 09/13/2018 (PREVNAR 13)(6 WKS UP) PNEUM OCOCCAL CONJUGATE (PCV13) 0.5 ML, IM 09/05/2019,08/28/2014 (PREVNAR 20)(6 WKS UP) PNEUM OCOCCAL CONJUGATE VACCINE 20-VALENT (PCV20), POLYSACCHARIDE [id number] CONJUGATE, ADJUVANT 0.5 ML (PF) IM 04/01/2022 (SHINGRIX)(50 YRS UP) ZOSTER VACCINE RECOMBINANT, 0.5 ML, IM 04/11/2023,04/01/2022 (SPIKEVAX) (12 YRS UP PRIMAR Y SERIES) COVID-19 VACCINE - MRNA-1273(PF) 100 MCG/0.5 ML IM SUSP 02/28/2021 INFLUENZA VACCINE HIGH DOSE QUADRIVALENT 65 YR UP PF IM 09/11/2023,08/17/2022,08/31/2021,10/12 INFLUENZA VACCINE HIGH DOSE TRIVALENT SPLIT VIRUS, (65 YR UP), 0.5ML (PF), IM 08/05/2024 INFLUENZA VACCINE QUADRIVALE NT 3 YR UP PF IM 10/03/2016 Influenza Seasonal Unspecifi ed Formulation IM 08/02/2025,08/31/2021,08/01/2017,09/18 Influenza Vaccine High Dose 65+ Yrs IM 9,09/13/2018 Influenza Vaccine Quad Split 3+ Yrs Im 5,08/28/2014 Influenza Vaccine Split 3+ Yrs PF IM 11/2012,08/22/2012,08/17/2011,09/13 Family History Medical History Relation Name Comments Other Brother No Known Problems Daughter Brain Cancer Father glioblastoma Heart Disease Father Hypertension Father Stroke Father Colon Cancer Maternal Uncle Atrial fibrillation Mother Diabetes Mother Heart murmur Mother Hypertension Mother Other Mother Breast Cancer Other 1 mat aunt x2 Cancer Other 2 PGM thyroid CA Heart murmur Sister 1 Other Sister 1 No Known Problems Son 1 No Known Problems Son 2 Relation Name Status Comments Brother Daughter Alive Father Maternal Uncle Mother Other 1 mat aunt x2 Alive Other 2 PGM Alive Sister 1 Alive Sister 2 Alive Sister 3 Alive Sister 4 Alive Son 1 Alive Son 2 Alive Social History Tobacco Use Types Packs/Day Years Used Date Smoking Tobacco: Never Passive Smoke Exposure: Never Smokeless Tobacco: Never Tobacco Cessation:Counseling Given: No Alcohol Use Standard Drinks/Week Comments No 0 [...] on file Legal Sex Female 1:54 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 Gender Identity Not on file Sexual Orientation Not on file Last Filed Vital Signs Vital Sign Reading Time Taken Comments Blood Pressure 115/59 08/15/2025 5:30 PM CDT Pulse 59 08/15/2025 5:30 PM CDT Temperature 36.4 C (97.6 F) 08/15/2025 12:43 PM CDT Respiratory Rate 16 08/15/2025 5:30 PM CDT Oxygen Saturation 96% 08/15/2025 5:30 PM CDT Inhaled Oxygen Concentration - - Weight 116.6 kg (257 lb) 08/15/2025 6:27 AM CDT Height 162.6 cm (5' 4 ) 08/15/2025 6:27 AM CDT Body Mass Index 44.11 08/15/2025 6:27 AM CDT Plan of Treatment Upcoming Encounters Date Type Department Care Team (Late st Contact Info) Description 09/15/2025 11:45 AM CDT Office Visit [facility] [address] [place] [address] Korey Benites MD [address] [place] [address] 10/30/2025 12:30 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 Office Visit [facility] [place] [address] [place] [address] Silver Benites MD [address] [place] [address] 12/29/2025 11:00 AM TELEVISION TECHNICIAN Office Visit [facility] [address] [facility] [address] [place] [phone] Octavio Tabares MD [address] [facility] [address] [place] [phone] Azalia Ferris NP [address] [facility] [address] [place] [address] 01/20/2026 2:15 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 Office Visit [facility] [address] [facility] [address] [place] [phone] Paramjit Bravo MD [address] [facility] [address] [place] [address] 04/28/2026 1:30 PM CDT Office Visit [facility] Endocrinology [facility] [address] [facility] [address] [place] [address] Rachel Sal MD [address] [address] 05/11/2027 3:10 PM CDT Office Visit [facility] [address] [address] Huy Mendiola NP [address] [place] [address] Health Maintenance Due Date Last Done Comments DTAP/TDAP/TD VACCINES (1 - Tdap) 02/28/1971 FIT-DNA Q 3 years 02/28/1997 FIT/FOBT Q 1 year 02/28/1997 Flex Sig/CT Colonography Q 5 years 02/28/1997 RSV VACCINE (60+ or ) (1 - Risk 60-74 years 1-dose series) 2012 BREAST CANCER SCREENING 03/08/2025 03/08/20 24, 07/13/2022, 05/24/2018, Additional history exists COVID-19 Vaccine (2 - 2024-2 6 season) 2025 02/28/2021 COLORECTAL SCREENING 02/24/2026 02/24/2021, 02/24/2021, 06/24/2014 Colorectal Cancer Screening 02/24/2026 OSTEOPOROSIS SCREENING 03/08/2029 , 07/29/2020, 07/29/2020 PNEUMOCOCCAL VACCINE 50+ YEARS Completed 0 04/01/2022, 09/05/2019, 09/13/2018, Additional history exists ZOSTER VACCINE Completed 04/11/2023, 04/01/2022 [place] Preventative Visit/Annual Wellness Visit Completed 03/12/2025, 08/05/2024, 11/22/2022, Additional history exists INFLUENZA VACCINE Completed 08/02/2025, , 09/11/2023, Additional history exists Medical Devices Implanted Type Area [place] Tour Guide Device Identifier Shelf Expiration Date Model / Serial / Lot Stimulan Rapid Cure Putty 5ml 620-005 - [id number] Implanted:Qty: 1 on 04/17/2024 by Maria Eugenia Tobias MD at [facility] Biological Left: Knee [employer] [id number] 12/20/2026 620-005 / / [id number] Cement Palacos Mv Zirconium Dioxide St Lf Disp 2427715 - [id number] Implanted:Qty: 1 on 02/20/2023 by Maria Eugenia Tobias MD at [facility] Cement Left: Knee [employer] [id number] 09/19/2027 [id number] / / [id number] Cement Palacos Mv Zirconium Dioxide St Lf Disp 9542424 - [id number] Implanted:Qty: 1 on 02/20/2023 by Maria Eugenia Tobias MD at [facility] Cement Left: Knee [employer] [id number] 09/19/2027 [id number] / / [id number] Cement Palac[employer] Mv Pro 40 Hip Knee Antimicrob 1968263 - [id number] Implanted:Qty: 1 on 04/17/2024 by Maria Eugenia Tobias MD at [facility] Cement Left: Knee [employer] [id number] 11/19/2025 [id number] / / [id number] Insert Attune Fb Ps Sz6 8mm 1516-40-608 - [id number] Implanted:Qty: 1 on 02/20/2023 by Maria Eugenia Tobias MD at [facility] Knee Left: Knee [employer] [id number] 12/20/2026 [id number] / / [id number] Comp Tib Attune Fb Cmnt Sz5 1506-70-005 - [id number] Implanted:Qty: 1 on 02/20/2023 by Maria Eugenia Tobias MD at [facility] Knee Left: Knee [employer] [id number] 12/20/2032 [id number] / / [id number] Comp Fem Attune Ps Sz 6n Lt Cmntd 1504-10-126 - [id number] Implanted:Qty: 1 on 02/20/2023 by Maria Eugenia Tobias MD at [facility] Knee Left: Knee [employer] [id number] 08/19/2032 [id number] / / [id number] Insert Attune Fb Ps Sz6 8mm 1516-40-608 - [id number] Implanted:Qty: 1 on 04/17/2024 by Maria Eugenia Tobias MD at [facility] Knee Left: Knee [employer] [id number] 02/17/2029 [id number] / / [id number] Patella Attune Dome 32mm 1518-20-032 - [id number] Implanted:Qty: 1 on 04/17/2024 by Maria Eugenia Tobias MD at [facility] Knee Left: Knee [employer] [id number] 12/20/2031 [id number] / / [id number] Procedures Procedure Name Priority Date/Time Associated Diagnosis Comments TELEMETRY REPORT 08/18/2025 3:10 PM CDT A FLUTTER ABLATION W ANES Routine 08/15/2025 12:27 PM CDT Typical atrial flutter (CMS/HCC) Atrial fibrillation, persistent (CMS/HCC) PULSED FIELD ABLATION (PFA) W ANES Routine 08/15/2025 12:27 PM CDT Typical atrial flutter (CMS/HCC) Atrial fibrillation, persistent (CMS/HCC) PVI ABLATION W ANES Routine 08/15/2025 1 2:27 PM CDT Typical atrial flutter (CMS/HCC) Atrial fibrillation, persistent (CMS/HCC) POC ACTIVATED CLOTTING TIME Routine 08/15/2025 12:16 PM CDT POC ACTIVATED CLOTTING TIME Routine 08/15/2025 11:22 AM CDT POC ACTIVATED CLOTTING TIME Routine 08/15/2025 10:35 AM CDT POC ACTIVATED CLOTTING TIME Routine 08/15/2025 9:53 AM CDT IL ANES INSERT CATH, ART, PERCUT, SHORTTERM Routine 08/15/2025 9:14 AM CDT POC ACTIVATED CLOTTING TIME Routine 08/15/2025 9:12 AM CDT IL ANES INSERT ENDOTRACHEAL AIRWAY Routine 08/15/2025 7:54 AM CDT ECHO TRANSESOPHAGEAL W DOPPLER AND COLOR FLOW Routine 08/14/2025 1:32 PM CDT Longstanding persistent atrial fibrillation (CMS/HCC) Typical atrial flutter (CMS/HCC) Chronic anticoagulation OXYGEN VIA DEVICE TO KEEP O2 SAT ABOVE Routine 08/14/2025 12:02 PM CDT BASIC METABOLIC PANEL Routine 08/14/2025 10:46 AM CDT PROTIME-INR Routine 08/14/2025 10:46 AM CDT CBC WITH DIFFERENTIAL Routine 08/14/2025 10:46 AM CDT EKG 12-LEAD Routine 08/14/2025 10:27 AM CDT IL ECG ROUTINE ECG W/LEAST 12 LDS W/I&R Routine 06/24/2025 1:46 PM CDT Longstanding persistent atrial fibrillation (CMS/HCC) MAMMO 3D CORINNA SCREEN BILAT W OR WO CAD Routine 03/08/2024 3:48 PM CDT Screening mammogram, encounter for XR DEXA BONE DENSITY AXIAL 1 OR MORE SITES Routine 03/08/2024 3:32 PM CDT Asymptomatic postmenopausal state COLONOSCOPY REPORT 02/24/2021 2: 06 PM CDT from Last 3 Months or Most Recently Relevant to Health Maintenance Results * TELEMETRY REPORT (08/18/2025 3:10 PM CDT) us Provider Scanning ECG ORDERABLES Final Result * PVI ABLATION W ANES, PULSED FIELD ABLATION (PFA) W ANES, A FLUTTER ABLATION W ANES (08/15/2025 12:27 PM CDT) Addenda Addendum by Paramjit Bravo MD on 08/15/2025 6:01 PM CDT Images from the original result were not included. Impression: Successful catheter ablation for symptomatic persistent atrial fibrillation Successful PVI with confirmation of entrance and exit block Successful posterior wall isolation with confirmation of entrance and exit block Successful typical atrial flutter ablation with CTI line Successful atypical atrial flutter ablation with anteromitral line No non-PV triggers Plan: Bedrest for 4 hours 12-lead ECG today Remove ozclkl-ln-bctmj suture in 4 hours at 5 pm Resume anticoagulation this evening Monitor on telemetry with neuro and groin checks as ordered Aim for same day discharge Paramjit Bravo MD, [facility] Clinical Cardiac Electrophysiology [facility] CTI Line Ablation: PVI and PWI: Anteromitral Line: Estimated Blood Loss There was minimal blood loss during procedure. Procedure Details [facility] Comprehensive Electrophysiology Study Procedures: 1. Right Femoral Vein Access x 2; Left Femoral Vein Access x2 2. Intracardiac Echocardiography 3. Trans-septal Puncture x 1 4. 3D Electroanatomical Mapping (EnsiteX) 5. Comprehensive Electrophysiology Study with Adenosine Infusion 6. Pulmonary Vein Isolation via Pulse field ablation 7. Posterior Wall Isolation via Pulse field ablation 8. CTI Line Ablation for Typical Atrial Flutter 9. Anteromitral Line Ablation for Atypical Atrial Flutter 10. Isoprel Infusion Post-Pulmonary Vein Isolation 11. Fluoroscopy with Interpretation 12. General Anesthesia (performed by Anesthesia) Parachute/Combatant Diver Officer: 1. Paramjit Bravo MD, [facility] - Clinical Cardiac Electrophysiology Indication: 75 y.o. y/o female with h/o symptomatic persistent atrial fibrillation presents for AFib ablation. Procedure Description: Informed consent was obtained from the patient after discussion of the relative risks and benefits of the procedure. The patient was brought to the EP lab in a fasting state, then prepped and draped in the usual sterile fashion. A right radial arterial line was obtained for hemodynamic monitoring. Time out was performed. Anesthesia was managed by the anesthesia service. The patient presented to the lab in Afib. Pre-procedural imaging was performed with MAX which demonstrated no LEV thrombus. Oral Anticoagulation Strategy: The procedure was performed with an uninterrupted strategy. A morning dose of oral anticoagulation was not given. Access/ Baseline Imaging and Multipolar Catheters Insertion: Vascular ultrasound was used to evaluate the femoral veins at the vascular access sites. The femoral veins were cannulated with modified Seldinger technique under ultrasound guidance. Two sheaths were inserted into the right femoral vein (9Fr, 8Fr) and Two sheaths were inserted into the left femoral vein (7Fr, 5Fr). An IZI-collecte intracardiac echocardiography (ICE) catheter was inserted via the left femoral vein sheath and advanced into the right atrium. Initial ICE showed normal LV function, trivial pericardial effusion, no evidence of LEV thrombus with imaging from the RA, RVOT and pulmonary artery. The ICE catheter was used to guide, transseptal punctures, monitor for procedural complications, and facilitate mapping and ablation. A decapolar diagnostic catheter was advanced into the coronary sinus for recording and pacing from the lower left atrium. A RV quad was advanced into RV for recording and pacing from RV septum. The patient was cardioverted to sinus rhythm with a 360 J shock. EP study and intervals: AH 135 ms, HV 53 ms, AV Wenckebach CL 540 ms with LA pacing via CS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 with comparison to a prior exam of 07/29/2020. L1-L2 BMD (g/cm2): 1.050 Adult T-score: -1.0 Adult Z-score: -0.4 Left Femoral Neck BMD (g/cm2): 0.806 Adult T-score: -1.7 Adult Z-score: -0.7 Left Total Hip BMD (g/cm2): 0.868 Adult T-score: -1.1 Adult Z-score: -0.4 IMPRESSION: Abnormal examination Bone density lies in the osteopenic range at all locations having decreased importantly in the hip lying just below the average of the patient's age-matched control consistent with age-appropriate physiologic versus early accelerated bone demineralization responsible for her osteopenia. Consider assessing fracture risk as below and repeating this examination no sooner than 2 years only as clinically needed. NOF guidelines recommend consideration of FDA-approved medical therapies in patients with FRAX determined 10-year probabilities of hip/major osteoporosis-related fractures equal or greater than 3%/20% respectively. Consider assessing fracture risk using the FRAX analysis tool for guidance of clinical management available online at www.shef.ac.uk/FRAX/. Enter Andigilog for Select DXA and the Femoral Neck BMD value. Korey Benites MD DIAGNOSTIC IMAGING ORDERABL ES Final Result * COLONOSCOPY REPORT (02/24/2021 2:06 PM CDT) Narrative Procedure Note Yoseph Sanchez MD - 02/24/2021 2:06 PM CDT Procedures signed by Yoseph Sanchez MD at 02/24/2021 2:06 PM Author: Yoseph Sanchez MD Service: -- Author Type: Physician Filed: 02/24/2021 2:06 PM Date of Service: 02/24/2021 2:06 PM Status:Signed Individual Pension Adviser: Yoseph Sanchez MD (Physician) Procedure Orders 1. COLONOSCOPY REPORT [[id number]] ordered by Yoseph Sanchez MD at02/24/21 [address] [facility] GI Patient Name: Everardo Corea Procedure Date: 02/24/2021 Date of : 1950 [...] Scope Out: 2:02:37 PM [address] [place], [place] Yoseph Sanchez MD GI PROCEDURE ORDERABLES Edited Result - Final from Last 3 Months or Most Recently Relevant to Health Maintenance Insurance MEDICAID [place] [facility] [id number] RX [employer] RX Member Subscriber Plan / Payer (Ef fective 2022-) Name:Everardo Corea Relation to Subscriber:Self Name:Everardo Corea Payer ID:Not on file Group ID:[id number] Type:RX Medicare Part D Address: [place], [place] RX INFOCROSSING Medicaid [facility] [address] MEDICAID [place] Advance Directives For more information, please contact: [phone] * Full Code (Latest Code Status on File) Date Activated Date Inactivated Comments 08/15/2025 6:04 AM 08/15/2025 8:11 PM * Full Code Date Activated Date Inactivated Comments 01/31/2025 1:24 PM 01/31/2025 7:23 PM * Default Full Code - Needs Discussion Date Activated Date Inactivated Comments 04/17/2024 9:32 AM 04/18/2024 2:15 PM * Default Full Code - Needs Discussion Date Activated Date Inactivated Comments 02/20/2023 1:04 PM 02/21/2023 4:13 PM * Full Code Date Activated Date Inactivated Comments 02/20/2023 7:57 AM 02/20/2023 1:04 PM Care Teams Stockroom Associate Relationship Specialty Start Date End Date Korey Benites MD [address] [address] PCP - General 04/28/04
--- OUTSIDE RECORDS SUMMARY | 2025-08-24 18:38 | XMS_ITS | Encounter Summary ---
Author Organization [facility] Address [address] [place] [address] Care Team Providers Care Nuts And Bolts Assembler Name Role Phone Korey Benites MD Primary Care Provider +1- [phone] Encounter Details Date Type Department Care Team (Late st Contact Info) Description 03/05/2009 Ancillary Orders [facility] Emergency Department [address] [place] [address] Korey Benites MD [address] [phone] Social History Tobacco Use Types Packs/Day Years Used Date Smoking Tobacco: Never Assessed Comments Unknown Sex and Gender Information Value Date Recorded Sex Assigned at Not on file Legal Sex Female 6:39 AM FIELD SERVICER Gender Identity Not on file Sexual Orientation Not on file documented as of this encounter Plan of Treatment Not on file documented as of this encounter Visit Diagnoses Not on filedocumented in this encounter Care Teams Nuts And Bolts Assembler Relationship Specialty Start Date End Date Korey Benites MD [address] [address] PCP - General 04/28/04 documented as of this encounter
--- OUTSIDE RECORDS SUMMARY | 2025-08-24 18:38 | XMS_ITS | Encounter Summary ---
Author Organization [facility] Address [address] [place] [address] Care Team Providers Care Cement Mason Name Role Phone Korey Benites MD Primary Care Provider +1- [phone] Encounter Details Date Type Department Care Team (Latest Contact Info) Description 02/21/2006 Outpatient [facility] [address] [place] [address] Korey Benites MD [address] [place] [address] Other and Unspecified Hyperlipidemia (Primary Dx); Obesity, Unspecified; Elevated Blood Pressure Reading without Diagnosis of Hypertension Social History Tobacco Use Types Packs/Day Years Used Date Smoking Tobacco: Never Assessed Comments Unknown Sex and Gender Information Value Date Recorded Sex Assigned at Not on file Legal Sex Female 6:39 AM SETTER OUT Gender Identity Not on file Sexual Orientation Not on file documented as of this encounter Plan of Treatment Not on file documented as of this encounter Visit Diagnoses Diagnosis Other and unspecified hyperlipidemia- Primary Obesity, unspecified Elevated blood pressure reading without diagnosis of hypertension documented in this encounter Care Teams Cement Mason Relationship Specialty Start Date End Date Korey Benites MD [address] [place] [address] PCP - General 04/28/04 documented as of this encounter
--- OUTSIDE RECORDS SUMMARY | 2025-08-24 18:38 | XMS_ITS | Encounter Summary ---
Author Organization [facility] Address [address] [place] [address] Care Team Providers Care Senior Health Educator Name Role Phone Korey Benites MD Primary Care Provider +1- [phone] Reason for Referral * Outpatient Services (Routine) - Closed Specialty Diagnoses / Procedures Referred By Contac t Referred To Contact Diagnoses Visit for screening mammogram Procedures MAMMO DIGITAL SCREEN BILAT Korey Benites MD [address] [address] Phone: tel: fax: Referral ID Status Reason Start Date Expiration Date Visits Re quested Visits Authorized [id number] Closed 08/24/2016 09/24/2017 1 1 Encounter Details Date Type Department Care Team (Latest Contact Info) Description 08/24/2016 Ancillary Orders [facility] Pre-Registration [place] CALL TO MAKE APPOINTMENT ONLY [address] [place] [address] Korey Benites MD [address] [address] Visit for screening mammogram (Primary Dx) Social History Tobacco Use Types Packs/Day Years Used Date Smoking Tobacco: Never Smokeless Tobacco: Never Comments:5'4 Alcohol Use Standard Drinks/Week Comments No 0 (1 standard drink = 0.6 oz pur e alcohol) Comments No Sex and Gender Information Value Date Recorded Sex Assigned at Not on file Legal Sex Female 6:39 AM POSITION CLERK Gender Identity Not on file Sexual Orientation Not on file Occupation Industry Job Start Date Job End Date Not on file Not on file Not on file Not on file documented as of this encounter Plan of Treatment Not on file documented as of this encounter Results * MAMMO DIGITAL SCREEN BILAT (10/03/2016 11:02 AM POSITION CLERK) Anatomical Region Laterality Modality Breast Bilateral Mammography Narrative 10/03/2016 2:44 PM POSITION CLERK Bilateral Mammogram Reason for Exam: Screening Comparison: Compared to: 09/09/2015 MAMMO DIGITAL SCREEN BILAT, 08/28/2014 MAMMO DIGITAL SCREEN BILAT, 03/26/2013 MAMMO DIGITAL SCREEN BILAT, 02/22/2012 MAMMO DIGITAL SCREEN BILAT Findings: Bilateral CC and MLO views were obtained. This examination was reviewed with the aid of a computer-aided detection system(CAD). The breast tissue density is fatty. No significant new findings since the prior mammogram(s). us Korey Benites MD MAMMO ORDERABLES Final Resu lt documented in this encounter Visit Diagnoses Diagnosis Visit for screening mammogram- Primary Other screening mammogram Visit for screening mammogram Other screening mammogram documented in this encounter Care Teams Senior Health Educator Relationship Specialty Start Date End Date Korey Benites MD [address] [address] PCP - General 04/28/04 documented as of this encounter
--- OUTSIDE RECORDS SUMMARY | 2025-08-24 18:38 | XMS_ITS | Encounter Summary ---
Author Organization [facility] Address [address] [place] [address] Care Team Providers Care Assembler Mechanical Ordnance Name Role Phone Korey Benites MD Primary Care Provider +1- [phone] Encounter Details Date Type Department Care Team (Latest Contact Info) Description 08/23/2005 Outpatient Historical [facility] [address] [place] [address] Korey Benites MD [address] [place] [address] HYPERLIPIDEMIA NEC/NOS (Primary Dx); ESOPHAGITIS, UNSPECIFIED; DISC DEGENERATION NOS; OBESITY NOS Social History Tobacco Use Types Packs/Day Years Used Date Smoking Tobacco: Never Assessed Comments Unknown Sex and Gender Information Value Date Recorded Sex Assigned at Not on file Legal Sex Female 6:39 AM NUTRITION PARTNER Gender Identity Not on file Sexual Orientation Not on file documented as of this encounter Plan of Treatment Not on file documented as of this encounter Visit Diagnoses Diagnosis Other and unspecified hyperlipidemia- Primary Esophagitis, unspecified Degeneration of intervertebral disc, site unspecified Obesity, unspecified documented in this encounter Care Teams Assembler Mechanical Ordnance Relationship Specialty Start Date End Date Korey Benites MD [address] [place] [address] PCP - General 04/28/04 documented as of this encounter
--- OUTSIDE RECORDS SUMMARY | 2025-08-24 18:38 | XMS_ITS | Encounter Summary ---
Author Organization [facility] Address [address] [place] [address] Care Team Providers Care Book Cleaner Name Role Phone Korey Benites MD Primary Care Provider +1- [phone] Encounter Details Date Type Department Care Team (Latest Contact Info) Description 10/08/2006 Outpatient Historical [facility] [place] [address] [place] [address] Phuong Turner MD [address] [phone] Abdominal Pain, Right Lower Quadrant (Primary Dx) Social History Tobacco Use Types Packs/Day Years Used Date Smoking Tobacco: Never Assessed Comments Unknown Sex and Gender Information Value Date Recorded Sex Assigned at Not on file Legal Sex Female 6:39 AM APPLICATION SUPPORT DEVELOPER Gender Identity Not on file Sexual Orientation Not on file documented as of this encounter Plan of Treatment Not on file documented as of this encounter Visit Diagnoses Diagnosis Abdominal pain, right lower quadrant- Primary documented in this encounter Care Teams Book Cleaner Relationship Specialty Start Date End Date Korey Benites MD [address] [place] [address] PCP - General 04/28/04 documented as of this encounter
--- OUTSIDE RECORDS SUMMARY | 2025-08-24 18:38 | XMS_ITS | Encounter Summary ---
Author Organization [facility] Address [address] [place] [address] Care Team Providers Care Central Supply Clerk Name Role Phone Korey Benites MD Primary Care Provider +[phone] Reason for Visit * Reason Onset Date Comments Medication Refill 08/23/2025 Encounter Details Date Type Department Care Team (Late st Contact Info) Description 08/23/2025 Refill [facility] [address] [facility] [address] [place] [address] Octavio Tabares MD [address] [facility] [address] [place] [address] PAF (paroxysmal atrial fibrillation); Atrial fibrillation, unspecified type (CMS/HCC); Permanent atrial fibrillation (CMS/HCC); Atrial fibrillation and flutter Social History Tobacco Use Types Packs/Day Years [...] on file Legal Sex Female 1:54 PM JUNIOR WEB DEVELOPER Gender Identity Not on file Sexual Orientation Not on file documented as of this encounter Plan of Treatment Upcoming Encounters Date Type Department Care Team (Late st Contact Info) Description 09/15/2025 11:45 AM CDT Office Visit [facility] [place] [place] [address] Korey Benites MD [address] [place] [address] 10/30/2025 12:30 PM JUNIOR WEB DEVELOPER Office Visit [facility] [address] [place] [address] Silver Benites MD [address] [place] [address] 12/29/2025 11:00 AM JUNIOR WEB DEVELOPER Office Visit [facility] Cardiology [facility] [address] [facility] [address] [place] [address] Octavio Tabares MD [address] [facility] [address] [place] [address] Azalia Ferris NP [address] [facility] [address] [place] [address] 01/20/2026 2:15 PM JUNIOR WEB DEVELOPER Office Visit [facility] [address] [facility] [address] [place] [address] Paramjit Bravo MD [address] [facility] [address] [place] [phone] 04/28/2026 1:30 PM CDT Office Visit [facility] Endocrinology [facility] [address] [place] [phone] Rachel Sal MD [address] [place] [address] 05/11/2027 3:10 PM CDT Office Visit [facility] [address] [facility] [address] [place] [address] Huy Mendiola NP [address] [place] [phone] documented as of this encounter Visit Diagnoses Diagnosis PAF (paroxysmal atrial fibrillation) Atrial fibrillation Atrial fibrillation, unspecified type (CMS/HCC) Permanent atrial fibrillation (CMS/HCC) Atrial fibrillation Atrial fibrillation and flutter documented in this encounter Additional Health Concerns Assessment Noted Time PHQ-9 Depression Total Score: 1 03/10/20 25 3:12 PM CDT documented as of this encounter Care Teams Central Supply Clerk Relationship Specialty Start Date End Date Korey Benites MD [address] [place] [phone] PCP - General 04/28/04 documented as of this encounter
--- OUTSIDE RECORDS SUMMARY | 2025-08-24 18:39 | XMS_ITS | Encounter Summary ---
Author Organization [facility] Address [address] [place] [address] Care Team Providers Care Rn Ante Partum Name Role Phone Korey Benites MD Primary Care Provider +1- [phone] Encounter Details Date Type Department Care Team (Latest Contact Info) Description 08/19/2003 Outpatient Historical [facility] [address] [place] [address] Korey Benites MD [address] [place] [address] BACKACHE NOS (Primary Dx) Social History Tobacco Use Types Packs/Day Years Used Date Smoking Tobacco: Never Assessed Comments Unknown Sex and Gender Information Value Date Recorded Sex Assigned at Not on file Legal Sex Female 6:39 AM QUILTING SUPERVISOR Gender Identity Not on file Sexual Orientation Not on file documented as of this encounter Plan of Treatment Not on file documented as of this encounter Visit Diagnoses Diagnosis Backache, unspecified- Primary documented in this encounter Care Teams Rn Ante Partum Relationship Specialty Start Date End Date Korey Benites MD [address] [place] [address] PCP - General 04/28/04 documented as of this encounter
--- OUTSIDE RECORDS SUMMARY | 2025-08-24 18:39 | XMS_ITS | Encounter Summary ---
Author Organization [facility] Address [address] [place] [address] Care Team Providers Care Nuclear Reactor Operator Name Role Phone Korey Benites MD Primary Care Provider +1- [phone] Encounter Details Date Type Department Care Team (Late st Contact Info) Description 07/30/2003 Emergency [facility] Department [address] [place] [address] Gato Turk DO NO ADDRESS ON FILE SPRAIN LUMBAR REGION (Primary Dx) Social History Tobacco Use Types Packs/Day Years Used Date Smoking Tobacco: Never Assessed Comments Unknown Sex and Gender Information Value Date Recorded Sex Assigned at Not on file Legal Sex Female 6:39 AM INFORMATICS MANAGER Gender Identity Not on file Sexual Orientation Not on file documented as of this encounter Plan of Treatment Not on file documented as of this encounter Visit Diagnoses Diagnosis Sprain of lumbar region- Primary documented in this encounter Care Teams Nuclear Reactor Operator Relationship Specialty Start Date End Date Korey Benites MD [address] [phone] PCP - General 04/28/04 documented as of this encounter
--- OUTSIDE RECORDS SUMMARY | 2025-08-24 18:39 | XMS_ITS | Encounter Summary ---
Author Organization [facility] Address [address] [place] [address] Care Team Providers Care Planning Engineer Name Role Phone Korey Benites MD Primary Care Provider +1- [phone] Encounter Details Date Type Department Care Team (Late st Contact Info) Description 03/10/2009 Ancillary Orders [facility] [address] [facility] [address] [place] [address] Bailee Paulson DO [address] [place] [address] Abnormal Mammogram Social History Tobacco Use Types Packs/Day Years Used Date Smoking Tobacco: Never Assessed Comments Unknown Sex and Gender Information Value Date Recorded Sex Assigned at Not on file Legal Sex Female 6:39 AM GREENHOUSE 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 I suspect that nodule represents a small lymph node. Since the remainder of the findings were stable bilaterally I would return this patient to routine yearly exams. The patient was given a recommendation/result letter. Narrative 03/10/2009 12:17 PM CDT ADDITIONAL VIEWS RIGHT BREAST: The patient had a bilateral screening mammogram performed on a mobile unit in [place] on 01/20/09. Additional views were recommended. We have received that study and the patient is here for a few additional views and ultrasound on the right for further evaluation. I also have the patient's prior study of 06/24/05 which was compared with the recent previous screening exam. Following a few additional views the nodule identified deep on the right MLO view appears to favor a probable lymph node. Further evaluation sonographically was carried out. Sonographic evaluation was carried out on the right and at the 10 o'clock position there is a 7 mm unremarkable appearing lymph node. The remainder of the ultrasound was unremarkable as well. Procedure Note Arlen Aldana MD - 03/12/2009 ADDITIONAL VIEWS RIGHT BREAST: The patient had a bilateral screening mammogram performed on a mobile unitin [place] on 01/20/09. Additional views were recommended. We havereceived that study and the patient is here for a few additional views andultrasound on the right for further evaluation. I also have the patient'sprior study of 06/24/05 which was compared with the recent previousscreening exam. Following a few additional views the nodule identified deep on the rightMLO view appears to favor a probable lymph node. Further evaluationsonographically was carried out. Sonographic evaluation was carried outon the right and at the 10 o'clock position there is a 7 mm unremarkableappearing lymph node. The remainder of the ultrasound was unremarkable aswell. IMPRESSION: Additional views and ultrasound were performed on the right to evaluate aprobably benign nodule superimposed in the pectoralis muscle noted for thefirst time on the screening study of 01/20/09. I suspect that nodulerepresents a small lymph node. Since the remainder of the findings werestable bilaterally I would return this patient to routine yearly exams. The patient was given a recommendation/result letter. us Bailee Paulson DO MAMMO ORDERABLES Final Result documented in this encounter Visit Diagnoses Diagnosis Abnormal mammogram Abnormal mammogram, unspecified Abnormal mammogram Abnormal mammogram, unspecified documented in this encounter Care Teams Planning Engineer Relationship Specialty Start Date End Date Korey Benites MD [address] [address] PCP - General 04/28/04 documented as of this encounter
--- OUTSIDE RECORDS SUMMARY | 2025-08-24 18:39 | XMS_ITS | Encounter Summary ---
Author Organization [facility] Address [address] [place] [address] Care Team Providers Care Spice Fumigator Name Role Phone Korey Benites MD Primary Care Provider +1- [phone] Encounter Details Date Type Department Care Team (Latest Contact Info) Description 04/22/2003 Outpatient Historical [facility] [address] [place] [address] Determinations, Dis [facility] [address] [address] MED EXAM NEC-ADMIN PURP (Primary Dx) Social History Tobacco Use Types Packs/Day Years Used Date Smoking Tobacco: Never Assessed Comments Unknown Sex and Gender Information Value Date Recorded Sex Assigned at Not on file Legal Sex Female 6:39 AM ENVIRONMENTAL ENGINEERING ASSISTANT Gender Identity Not on file Sexual Orientation Not on file documented as of this encounter Plan of Treatment Not on file documented as of this encounter Visit Diagnoses Diagnosis Other general medical examination for administrative purposes- Primary documented in this encounter Care Teams Spice Fumigator Relationship Specialty Start Date End Date Korey Benites MD [address] [facility] [address] [place] [address] PCP - General 04/28/04 documented as of this encounter
--- OUTSIDE RECORDS SUMMARY | 2025-08-24 18:39 | XMS_ITS | Encounter Summary ---
Author Organization [facility] Address [address] [place] [address] Care Team Providers Care Purchasing Expeditor Name Role Phone Korey Benites MD Primary Care Provider +1- [phone] Encounter Details Date Type Department Care Team (Late st Contact Info) Description 03/05/2009 Ancillary Orders [facility] [address] [facility] [address] [place] [address] Bailee Paulson DO [address] [place] [address] Abnormal Mammogram Social History Tobacco Use Types Packs/Day Years Used Date Smoking Tobacco: Never Assessed Comments Unknown Sex and Gender Information Value Date Recorded Sex Assigned at Not on file Legal Sex Female 6:39 AM WET PROCESS MILLER HEAD Gender Identity Not on file Sexual Orientation Not on file documented as of this encounter Plan of Treatment Not on file documented as of this encounter Visit Diagnoses Diagnosis Abnormal mammogram Abnormal mammogram, unspecified documented in this encounter Care Teams Purchasing Expeditor Relationship Specialty Start Date End Date Korey Benites MD [address] [facility] [address] [place] [address] PCP - General 04/28/04 documented as of this encounter
--- OUTSIDE RECORDS SUMMARY | 2025-08-24 18:39 | XMS_ITS | Encounter Summary ---
Author Organization [facility] Address [address] [place] [address] Care Team Providers Care Vp Organizational Development Name Role Phone Korey Benites MD Primary Care Provider +1- [phone] Encounter Details Date Type Department Care Team (Latest Contact Info) Description 10/06/2003 Outpatient [facility] [address] [place] [address] Korey Benites MD [address] [place] [address] OTITIS MEDIA NOS (Primary Dx); ACUTE SINUSITIS NOS Social History Tobacco Use Types Packs/Day Years Used Date Smoking Tobacco: Never Assessed Comments Unknown Sex and Gender Information Value Date Recorded Sex Assigned at Not on file Legal Sex Female 6:39 AM FOREST FIRE SPECIALIST SUPERVISOR Gender Identity Not on file Sexual Orientation Not on file documented as of this encounter Plan of Treatment Not on file documented as of this encounter Visit Diagnoses Diagnosis Unspecified otitis media- Primary Acute sinusitis, unspecified documented in this encounter Care Teams Vp Organizational Development Relationship Specialty Start Date End Date Koery Benites MD [address] [place] [address] PCP - General 04/28/04 documented as of this encounter
--- OUTSIDE RECORDS SUMMARY | 2025-08-24 18:39 | XMS_ITS | Encounter Summary ---
Author Organization [facility] Address [address] [place] [address] Care Team Providers Care Filling Machine Tender Name Role Phone Korey Benites MD Primary Care Provider +1- [phone] Encounter Details Date Type Department Care Team (Late st Contact Info) Description 03/10/[address] 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 Procedure Note Arlen Aldana MD - 03/12/2009 Ultrasound report is included in the diagnostic mammogram report of03/10/2009. us Bailee Paulson DO MAMMO ORDERABLES Final Result documented in this encounter Visit Diagnoses Diagnosis Abnormal mammogram Abnormal mammogram, unspecified Abnormal mammogram Abnormal mammogram, unspecified documented in this encounter Care Teams Filling Machine Tender Relationship Specialty Start Date End Date Korey Benites MD [address] [address] PCP - General 04/28/04 documented as of this encounter
--- OUTSIDE RECORDS SUMMARY | 2025-08-24 18:39 | XMS_ITS | Encounter Summary ---
Author Organization [facility] Address [address] [place] [address] Care Team Providers Care Road Packer Operator Name Role Phone Korey Benites MD Primary Care Provider +1- [phone] Encounter Details Date Type Department Care Team (Latest Contact Info) Description 12/17/2003 Outpatient [facility] [address] [place] [address] Korey Benites MD [address] [place] [address] HYPERLIPIDEMIA NEC/NOS (Primary Dx); ACUTE STRESS REACT NOS Social History Tobacco Use Types Packs/Day Years Used Date Smoking Tobacco: Never Assessed Comments Unknown Sex and Gender Information Value Date Recorded Sex Assigned at Not on file 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
--- OUTSIDE RECORDS SUMMARY | 2025-08-24 18:39 | XMS_ITS | Encounter Summary ---
Author Organization [facility] Address [address] [place] [address] Care Team Providers Care Registered Nurse Obstetrics Name Role Phone Korey Benites MD Primary Care Provider +1- [phone] Encounter Details Date Type Department Care Team (Latest Contact Info) Description 10/17/2003 Outpatient [facility] [address] [place] [address] Hudson Wells MD [address] [place] [address] COUGH (Primary Dx); ASTHMA UNSPECIFIED; ACUTE SINUSITIS NOS Social History Tobacco Use Types Packs/Day Years Used Date Smoking Tobacco: Never Assessed Comments Unknown Sex and Gender Information Value Date Recorded Sex Assigned at Not on file 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
--- OUTSIDE RECORDS SUMMARY | 2025-08-24 18:39 | XMS_ITS | Encounter Summary ---
Author Organization [facility] Address [address] [place] [address] Care Team Providers Care High School Math Teacher Name Role Phone Korey Benites MD Primary Care Provider +1- [phone] Encounter Details Date Type Department Care Team (Late st Contact Info) Description 10/09/2006 Outpatient Historical [facility] Brady Resendiz, Enoch Sandhu MD [address] [address] Abdominal Pain, Unspecified Site (Primary Dx) Social History Tobacco Use Types Packs/Day Years Used Date Smoking Tobacco: Never Assessed Comments Unknown Sex and Gender Information Value Date Recorded Sex Assigned at Not on file 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 Gender Identity Not on file Sexual Orientation Not on file documented as of this encounter Plan of Treatment Not on file documented as of this encounter Procedures Procedure Name Priority Date/Time Associated Diagnosis Comments CBC WITH DIFFERENTIAL Routine 10/09/2006 5:45 AM CUSTOM WOOD STAIR BUILDER BASIC METABOLIC PANEL Routine 10/09/2006 5:45 AM CUSTOM WOOD STAIR BUILDER CT ABDOMEN PELVIS W CONTRAST Routine 10/09/2006 1:01 AM CUSTOM WOOD STAIR BUILDER documented in this encounter Results * (ABNORMAL) CBC WITH DIFFERENTIAL (10/09/2006 5:45 AM CUSTOM WOOD STAIR BUILDER) WBC 7.9 4.8 - 10.8 K/ul INTERFACE SYSTEM RBC 4.12(L) 4.20 - 5.40 Mil/ul INTERFACE SYSTEM HEMOGLOBIN 12.8 12.0 - 16.0 g/dL INTERFACE SYSTEM HEMATOCRIT 38.0 36.0 - 46.0 % INTERFACE SYSTEM MCV 92.2 84.0 - 103.0 Fl INTERFACE SYSTEM MCH 31.1 27.0 - 34.0 pg INTERFACE SYSTEM MCHC 33.7 30.0 - 35.0 g/dL INTERFACE SYSTEM RDW 13.6 11.0 - 14.5 % INTERFACE SYSTEM PLATELETS 269 140 - 440 K/ul INTERFACE SYSTEM MPV 10.4 8.9 - 12.8 Fl INTERFACE SYSTEM NEUTROPHILS 52.8 42.2 - 75.2 % INTERFACE SYSTEM LYMPHOCYTES 30.5 24.0 - 44.0 % INTERFACE SYSTEM MONOCYTES 10.8(H) 2.0 - 10.0 % INTERFACE SYSTEM EOSINOPHILS 5.1 0.0 - 7.0 % INTERFACE SYSTEM BASOPHILS 0.8 0.0 - 1.0 % INTERFACE SYSTEM NEUTROPHIL ABSOLUTE 4.2 2.0 - 8.0 K/uL INTERFACE SYSTEM LYMPHOCYTE ABSOLUTE 2.4 1.2 - 4.0 K/ul INTERFACE SYSTEM MONOCYTE ABSOLUTE 0.9(H) 0.1 - 0.6 K/ul INTERFACE SYSTEM EOSINOPHIL ABSOLUTE 0.4 0.0 - 0.7 K/ul INTERFACE SYSTEM BASOPHILS ABSOLUTE 0.1 0.0 - 0.2 K/ul INTERFACE SYSTEM 10/09/2006 5:45 AM CUSTOM WOOD STAIR BUILDER us Enoch Abreu Jr., MD HEMATOLOGY ORDERABLES F inal Result INTERFACE SYSTEM Refer to clinic/hospital department * BASIC METABOLIC PANEL (10/09/2006 5:45 AM CUSTOM WOOD STAIR BUILDER) GLUCOSE 100 70 - 110 mg/dL INTERFACE SYSTEM BUN 9 7 - 17 mg/dL INTERFACE SYSTEM CREATININE 0.8 0.7 - 1.2 mg/dL INTERFACE SYSTEM SODIUM 140 136 - 145 mEq/L INTERFACE SYSTEM POTASSIUM 3.8 3.5 - 5.0 mEq/L INTERFACE SYSTEM CHLORIDE 110 95 - 110 mEq/L INTERFACE SYSTEM CO2 25 22 - 32 mmol/l INTERFACE SYSTEM ANION GAP 9 9 - 20 mEq/L INTERFACE SYSTEM OSMOLALITY, CALCULATED 286 275 - 295 mOsm/Kg INTERFACE SYSTEM CALCIUM 8.8 8.4 - 10.5 mg/dL INTERFACE SYSTEM 10/09/2006 5:45 AM CUSTOM WOOD STAIR BUILDER us Enoch Abreu Jr., MD CHEMISTRY ORDERABLES Fi nal Result INTERFACE SYSTEM Refer to clinic/hospital department * CT ABDOMEN PELVIS W CONTRAST (10/09/2006 1:01 AM CUSTOM WOOD STAIR BUILDER) Anatomical Region Laterality Modality Abdomen Other 10/09/2006 1:01 AM CUSTOM WOOD STAIR BUILDER Narrative 10/09/2006 1:01 AM CUSTOM WOOD STAIR BUILDER CT ABDOMEN AND PELVIS WITH CONTRAST: 10/08/2006INDICATION: Right lower quadrant abdominal pain. TECHNIQUE: 5 mm volumetric acquisition with 100 mL intravenous Optiray-350, oral, and rectalcontrast. COMPARISON: CTA chest of 06/09/2005. FINDINGS: Calcified granuloma of the right lower lobe is identified. Linear scar versus atelectasis ofthe left lung base is present. Diffuse low attenuation of the enhanced liver relative to the spleenis identified. The gallbladder, spleen, adrenal glands, pancreas, and left kidney are unremarkable. A subcentimeter exophytic cortical hypodensity off the lateral margin of the lower pole of theright kidney is identified. The appendix is within normal limits. Moderate retained fecal materialwithin the ascending colon is seen. Focal region of abnormal induration/infiltration anterior tothe descending colon on image 51 of series 2 is identified. Definite significant diverticularchange of the colon is not identified. No free air, free fluid, pathologic lymphadenopathy by CTsize criteria is identified. IMPRESSION: 1. Focal region of induration/infiltration of the paracolic fat anterior to the ascending colon asdescribed above without definite diverticular change within this region identified. Differentialdiagnosis would include omental infarct versus minimal diverticulitis. Clinical correlation andfollowup is recommended to confirm stability or resolution of this finding. 2. Subcentimeter right renal cortical hypodensity too small to accurately characterize by CT, however,statistically representing renal cortical cyst. 3. Diffuse low attenuation of the enhanced liver relative to the spleen. This finding is nonspecific onenhanced CT, however, likely reflects diffuse fatty infiltration of the liver. - Dictated By: Trudi Mckeon M.D. Electronically Signed By: Trudi Mckeon M.D. Date Signed: 10/09/06 Procedure Note 10/09/2009 CT ABDOMEN AND PELVIS WITH CONTRAST: 10/08/2006INDICATION: Right lower quadrant abdominal pain. TECHNIQUE: 5 mm volumetric acquisition with 100 mL intravenous Optiray-350, oral, andrectalcontrast. COMPARISON: CTA chest of 06/09/2005. FINDINGS: Calcified granuloma of the right lower lobe is identified. Linear scarversus atelectasis ofthe left lung base is present. Diffuse low attenuation of the enhanced liver relativeto the spleenis identified. The gallbladder, spleen, adrenal glands, pancreas, and left kidney areunremarkable. A subcentimeter exophytic cortical hypodensity off the lateral margin ofthe lower pole of theright kidney is identified. The appendix is within normal limits. Moderateretained fecal materialwithin the ascending colon is seen. Focal region of abnormal induration/infiltrationanterior tothe descending colon on image 51 of series 2 is identified. Definite significantdiverticularchange of the colon is not identified. No free air, free fluid, pathologic lymphadenopathy by CTsizecriteria is identified. IMPRESSION: 1. Focal region of induration/infiltration of the paracolic fat anteriorto the ascending colon asdescribed above without definite diverticular change within this regionidentified. Differentialdiagnosis would include omental infarct versus minimaldiverticulitis. Clinical correlation andfollowup is recommended to confirm stability or resolution of thisfinding. 2. Subcentimeter right renal cortical hypodensity too small to accuratelycharacterize by CT, however,statistically representing renal cortical cyst. 3. Diffuse low attenuation of the enhanced liver relative to the spleen.This finding is nonspecific onenhanced CT, however, likely reflects diffuse fatty infiltration of theliver. - Dictated By: Trudi Mckeon M.D. Electronically Signed By: Trudi Mckeon M.D. Date Signed: 10/09/[address] ORDERABLES Final Result documented in this encounter Visit Diagnoses Diagnosis Abdominal pain, unspecified site- Primary documented in this encounter Care Teams High School Math Teacher Relationship Specialty Start Date End Date Korey Benites MD [address] [address] PCP - General 04/28/04 documented as of this encounter
--- OUTSIDE RECORDS SUMMARY | 2025-08-24 18:39 | XMS_ITS | Encounter Summary ---
Author Organization [facility] Address [address] [place] [address] Care Team Providers Care Manager Garden Name Role Phone Korey Benites MD Primary Care Provider +1- [phone] Encounter Details Date Type Department Care Team (Latest Contact Info) Description 09/18/2003 Outpatient [facility] [address] [place] [address] Korey Benites MD [address] [place] [address] BACKACHE NOS (Primary Dx); Vaccine for influenza Social History Tobacco Use Types Packs/Day Years Used Date Smoking Tobacco: Never Assessed Comments Unknown Sex and Gender Information Value Date Recorded Sex Assigned at Not on file 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
--- OUTSIDE RECORDS SUMMARY | 2025-08-24 18:39 | XMS_ITS | Encounter Summary ---
Author Organization [facility] Address [address] [place] [address] Care Team Providers Care Industrial Pipefitter Journeyman Name Role Phone Korey Benites MD Primary Care Provider +1- [phone] Encounter Details Date Type Department Care Team (Latest Contact Info) Description 02/02/2004 Outpatient Historical [facility] [address] [place] [address] Korey Benites MD [address] [place] [address] BACKACHE NOS (Primary Dx) Social History Tobacco Use Types Packs/Day Years Used Date Smoking Tobacco: Never Assessed Comments Unknown Sex and Gender Information Value Date Recorded Sex Assigned at Not on file 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
--- OUTSIDE RECORDS SUMMARY | 2025-08-24 18:40 | XMS_ITS | Encounter Summary ---
Author Organization [facility] Address [address] [place] [address] Care Team Providers Care Surgical Manager Name Role Phone Korey Benites MD Primary Care Provider +1- [phone] Encounter Details Date Type Department Care Team (Latest Contact Info) Description 07/12/2005 Outpatient Historical [facility] [address] [place] [address] Korey Benites MD [address] [place] [address] BACKACHE NOS (Primary Dx) Social History Tobacco Use Types Packs/Day Years Used Date Smoking Tobacco: Never Assessed Comments Unknown Sex and Gender Information Value Date Recorded Sex Assigned at Not on file 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
--- OUTSIDE RECORDS SUMMARY | 2025-08-24 18:40 | XMS_ITS | Encounter Summary ---
Author Organization [facility] Address [address] [place] [address] Care Team Providers Care Varnish Remover Name Role Phone Korey Benites MD Primary Care Provider +1- [phone] Encounter Details Date Type Department Care Team (Latest Contact Info) Description 06/11/2005 Outpatient Historical [facility] Urgent Care- [facility] Marianela [address] [place] [address] Phuong Turner MD [address] [phone] PNEUMONIA, ORGANISM NOS (Primary Dx) Social History Tobacco Use Types Packs/Day Years Used Date Smoking Tobacco: Never Assessed Comments Unknown Sex and Gender Information Value Date Recorded Sex Assigned at Not on file Legal Sex Female 6: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
--- OUTSIDE RECORDS SUMMARY | 2025-08-24 18:40 | XMS_ITS | Encounter Summary ---
Author Organization [facility] Address [address] [facility] [place] [address] Care Team Providers Care Chute Operator Name Role Phone Korey Benites MD Primary Care Provider +1- [phone] Encounter Details Date Type Department Care Team (Latest Contact Info) Description 04/10/[address] [facility] Imaging Services-Tristen Booker Marianela [address] [place] [address] Hermann Macias MD NO ADDRESS ON FILE OTHER LUNG DISEASE NEC (Primary Dx) Social History Tobacco Use Types Packs/Day Years Used Date Smoking Tobacco: Never Assessed Comments Unknown Sex and Gender Information Value Date Recorded Sex Assigned at Not on file Legal Sex Female 6:39 AM USABILITY STRATEGIST Gender Identity Not on file Sexual Orientation Not on file documented as of this encounter Plan of Treatment Not on file documented as of this encounter Visit Diagnoses Diagnosis Other diseases of lung, not elsewhere classified- Primary documented in this encounter Care Teams Chute Operator Relationship Specialty Start Date End Date Korey Benites MD [address] [place] [address] PCP - General 04/28/04 documented as of this encounter
--- OUTSIDE RECORDS SUMMARY | 2025-08-24 18:40 | XMS_ITS | Encounter Summary ---
Author Organization [facility] Address [address] [place] [address] Care Team Providers Care Authorization Representative Name Role Phone Korey Benites MD Primary Care Provider +1- [phone] Encounter Details Date Type Department Care Team (Latest Contact Info) Description 01/09/1998 Outpatient Historical [facility] Rheumatology- [facility] Barron [address] [place] [address] Wade Kent MD NO ADDRESS ON FILE Myalgia and myositis, unspecified (Primary Dx); Depressive disorder, not elsewhere classified Social History Tobacco Use Types Packs/Day Years Used Date Smoking Tobacco: Never Assessed Comments Unknown Sex and Gender Information Value Date Recorded Sex Assigned at Not on file Legal 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
--- OUTSIDE RECORDS SUMMARY | 2025-08-24 18:40 | XMS_ITS | Encounter Summary ---
Author Organization [facility] Address [address] [place] [address] Care Team Providers Care Environmental Professional Name Role Phone Korey Benites MD Primary Care Provider +1- [phone] Encounter Details Date Type Department Care Team (Late st Contact Info) Description 06/15/2004 Outpatient [facility] Marianela[address] [place] [address] Korey Benites MD [address] [place] [address] Social History Tobacco Use Types Packs/Day Years Used Date Smoking Tobacco: Never Assessed Comments Unknown Sex and Gender Information Value Date Recorded Sex Assigned at Not on file 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
--- OUTSIDE RECORDS SUMMARY | 2025-08-24 18:40 | XMS_ITS | Encounter Summary ---
Author Organization [facility] Address [address] [place] [address] Care Team Providers Care Recruiter Specialist Name Role Phone Korey Benites MD Primary Care Provider +1- [phone] Encounter Details Date Type Department Care Team (Latest Contact Info) Description 08/07/2003 Outpatient Historical [facility] Imaging Services [address] [place] [address] Gato Turk DO NO ADDRESS ON FILE DISC DIS NEC/NOS-LUMBAR (Primary Dx) Social History Tobacco Use Types Packs/Day Years Used Date Smoking Tobacco: Never Assessed Comments Unknown Sex and Gender Information Value Date Recorded Sex Assigned at Not on file 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
--- OUTSIDE RECORDS SUMMARY | 2025-08-24 18:40 | XMS_ITS | Encounter Summary ---
Author Organization [facility] Address [address] [place] [address] Care Team Providers Care Coach Driver Name Role Phone Korey Benites MD Primary Care Provider +1- [phone] Encounter Details Date Type Department Care Team (Latest Contact Info) Description 05/04/2004 Outpatient 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
--- OUTSIDE RECORDS SUMMARY | 2025-08-24 18:40 | XMS_ITS | Encounter Summary ---
Author Organization [facility] Address [address] [place] [address] Care Team Providers Care Print Graphic Designer Name Role Phone Korey Benites MD Primary Care Provider +1- [phone] Encounter Details Date Type Department Care Team (Latest Contact Info) Description 06/09/2005 Outpatient Historical [facility] Imaging Services-Ramon Jhony Marianela [address] [place] [address] Phuong Turner MD [address] [place] [phone] RESPIRATORY ABNORM NEC (Primary Dx) Social History Tobacco Use Types Packs/Day Years Used Date Smoking Tobacco: Never Assessed Comments Unknown Sex and Gender Information Value Date Recorded Sex Assigned at Not on file Legal Sex Female 6:39 AM TOWEL SEWER Gender Identity Not on file Sexual Orientation Not on file documented as of this encounter Plan of Treatment Not on file documented as of this encounter Visit Diagnoses Diagnosis Other dyspnea and respiratory abnormality- Primary documented in this encounter Care Teams Print Graphic Designer Relationship Specialty Start Date End Date Korey Benites MD [address] [place] [address] PCP - General 04/28/04 documented as of this encounter
--- OUTSIDE RECORDS SUMMARY | 2025-08-24 18:40 | XMS_ITS | Encounter Summary ---
Author Organization [facility] Address [address] [place] [place] [address] Care Team Providers Care Cook Mess Name Role Phone Korey Benites MD Primary Care Provider +1- [phone] Encounter Details Date Type Department Care Team (Latest Contact Info) Description 04/28/2004 Outpatient Historical [facility] Tristen Booker Marianela [address] [place] [address] Rene Richardson MD NO ADDRESS ON FILE SCREENING MAMM-MAILG NEOPL-OTHER (Primary Dx) Social History Tobacco Use Types Packs/Day Years Used Date Smoking Tobacco: Never Assessed Comments Unknown Sex and Gender Information Value Date Recorded Sex Assigned at Not on file Legal Sex Female 6:39 AM REGULATOR TESTER Gender Identity Not on file Sexual Orientation Not on file documented as of this encounter Plan of Treatment Not on file documented as of this encounter Visit Diagnoses Diagnosis Other screening mammogram- Primary documented in this encounter Care Teams Cook Mess Relationship Specialty Start Date End Date Korey Benites MD [address] [phone] PCP - General 04/28/04 documented as of this encounter
--- OUTSIDE RECORDS SUMMARY | 2025-08-24 18:40 | XMS_ITS | Encounter Summary ---
Author Organization [facility] Address [address] [place] [address] Care Team Providers Care Pulp Piler Name Role Phone Korey Benites MD Primary Care Provider +1- [phone] Encounter Details Date Type Department Care Team (Latest Contact Info) Description 06/09/2005 Outpatient Historical [facility] Urgent Care- [facility] Marianela [address] [place] [address] Phuong Turner MD [address] [phone] PNEUMONIA, ORGANISM NOS (Primary Dx); RESPIRATORY ABNORM NEC; CHEST PAIN NOS Social History Tobacco Use Types Packs/Day Years Used Date Smoking Tobacco: Never Assessed Comments Unknown Sex and Gender Information Value Date Recorded Sex Assigned at Not on file Legal Sex Female 6:39 AM TRANSONIC ENGINEER Gender Identity Not on file Sexual Orientation Not on file documented as of this encounter Plan of Treatment Not on file documented as of this encounter Visit Diagnoses Diagnosis Pneumonia, organism unspecified(486)- Primary Pneumonia, organism unspecified Other dyspnea and respiratory abnormality Chest pain, unspecified documented in this encounter Care Teams Pulp Piler Relationship Specialty Start Date End Date Korey Benites MD [address] [place] [address] PCP - General 04/28/04 documented as of this encounter
--- OUTSIDE RECORDS SUMMARY | 2025-08-24 18:40 | XMS_ITS | Encounter Summary ---
Author Organization [facility] Address [address] [place] [address] Care Team Providers Care Mounter Smoking Pipe Name Role Phone Korey Benites MD Primary Care Provider +1- [phone] Encounter Details Date Type Department Care Team (Latest Contact Info) Description 06/24/2004 Outpatient Historical [facility] Imaging Services-Ramon Jhony Marianela [address] [place] [address] Korey Benites MD [address] [place] [address] NONTOX UNINODULAR GOITER (Primary Dx) Social History Tobacco Use Types Packs/Day Years Used Date Smoking Tobacco: Never Assessed Comments Unknown Sex and Gender Information Value Date Recorded Sex Assigned at Not on file Legal Sex Female 6:39 AM DIRECTOR TRADE Gender Identity Not on file Sexual Orientation Not on file documented as of this encounter Plan of Treatment Not on file documented as of this encounter Visit Diagnoses Diagnosis Nontoxic uninodular goiter- Primary documented in this encounter Care Teams Mounter Smoking Pipe Relationship Specialty Start Date End Date Korey Benites MD [address] [place] [address] PCP - General 04/28/04 documented as of this encounter
--- OUTSIDE RECORDS SUMMARY | 2025-08-24 18:40 | XMS_ITS | Encounter Summary ---
Author Organization [facility] Address [address] [place] [address] Care Team Providers Care Admitting Coordinator Name Role Phone Korey Benites MD Primary Care Provider +1- [phone] Reason for Referral * Outpatient Services (Routine) - Closed Specialty Diagnoses / Procedures Referred By Contac t Referred To Contact Diagnoses Palpitations Procedures ECHO PRE TEST Korey Benites MD [address] [place] [address] Phone: tel: fax: Referral ID Status Reason Start Date Expiration Date Visits Re quested Visits Authorized [id number] Closed 09/06/2012 09/06/2013 1 1 Encounter Details Date Type Department Care Team (Late st Contact Info) Description 09/06/2012 Ancillary Orders [facility] [place] [address] Korye Benites MD [address] [place] [address] Palpitations Social History Tobacco Use Types Packs/Day Years Used Date Smoking Tobacco: Never Smokeless Tobacco: Never Comments:5'4 Alcohol Use Standard Drinks/Week Comments No 0 (1 standard drink = 0.6 oz pur e alcohol) Comments No Sex and Gender Information Value Date Recorded Sex Assigned at Not on file Legal Sex Female 6:39 AM FERRYBOAT OPERATOR CABLE Gender Identity Not on file Sexual Orientation Not on file Occupation Industry Job Start Date Job End Date Not on file Not on file Not on file Not on file documented as of this encounter Plan of Treatment Not on file documented as of this encounter Results * ECHO PRE TEST (09/06/2012 10:44 AM CDT) Narrative [facility] - 09/26/2017 1:25 PM FERRYBOAT OPERATOR CABLE FINAL - See Provider Note Procedure Note 12/30/2015 FINAL - See Provider Note us Korey Benites MD ORDERABLES Final Resul t [facility] documented in this encounter Visit Diagnoses Diagnosis Palpitations documented in this encounter Care Teams Admitting Coordinator Relationship Specialty Start Date End Date Korey Benites MD [address] [phone] PCP - General 04/28/04 documented as of this encounter
--- OUTSIDE RECORDS SUMMARY | 2025-08-24 18:40 | XMS_ITS | Encounter Summary ---
Author Organization [facility] Address [address] [place] [address] Care Team Providers Care Examination Scorer Name Role Phone Korey Benites MD Primary Care Provider +1- [phone] Encounter Details Date Type Department Care Team (Latest Contact Info) Description 11/06/2000 Outpatient Historical [facility] [place] [place] [address] Korey Benites MD [address] [place] [address] Anxiety state, unspecified (Primary Dx); Major depressive disorder, single episode, unspecified Social History Tobacco Use Types Packs/Day Years Used Date Smoking Tobacco: Never Assessed Comments Unknown Sex and Gender Information Value Date Recorded Sex Assigned at Not on file Legal Sex Female 6:39 AM BUSINESS OFFICE MANAGER Gender Identity Not on file Sexual Orientation Not on file documented as of this encounter Plan of Treatment Not on file documented as of this encounter Visit Diagnoses Diagnosis Anxiety state, unspecified- Primary Major depressive disorder, single episode, unspecified documented in this encounter Care Teams Examination Scorer Relationship Specialty Start Date End Date Korey Benites MD [address] [place] [address] PCP - General 04/28/04 documented as of this encounter
--- OUTSIDE RECORDS SUMMARY | 2025-08-24 18:40 | XMS_ITS | Encounter Summary ---
Author Organization [facility] Address [address] [place] [address] Care Team Providers Care Scrap Charger Name Role Phone Korey Benites MD Primary Care Provider +1- [phone] Encounter Details Date Type Department Care Team (Late st Contact Info) Description 12/03/1999 Outpatient Historical [facility] Korey Benites MD [address] [address] Abdominal pain, unspecified site (Primary Dx) Social History Tobacco Use Types Packs/Day Years Used Date Smoking Tobacco: Never Assessed Comments Unknown Sex and Gender Information Value Date Recorded Sex Assigned at Not on file Legal Sex Female 6:39 AM CLINICAL TRAINING COORDINATOR Gender Identity Not on file Sexual Orientation Not on file documented as of this encounter Plan of Treatment Not on file documented as of this encounter Visit Diagnoses Diagnosis Abdominal pain, unspecified site- Primary documented in this encounter Care Teams Scrap Charger Relationship Specialty Start Date End Date Korey Benites MD [address] [facility] [address] [place] [address] PCP - General 04/28/04 documented as of this encounter
--- OUTSIDE RECORDS SUMMARY | 2025-08-24 18:40 | XMS_ITS | Encounter Summary ---
Author Organization [facility] Address [address] [place] [facility] [address] Care Team Providers Care Top Carrier Name Role Phone Korey Benites MD Primary Care Provider +1- [phone] Encounter Details Date Type Department Care Team (Latest Contact Info) Description 12/09/1997 Outpatient Historical [facility] Rheumatology- [facility] [address] [place] [address] Wade Kent MD NO ADDRESS ON FILE Myalgia and myositis, unspecified (Primary Dx); Depressive disorder, not elsewhere classified Social History Tobacco Use Types Packs/Day Years Used Date Smoking Tobacco: Never Assessed Comments Unknown Sex and Gender Information Value Date Recorded Sex Assigned at Not on file Legal Sex Female 6:39 AM LOG LOADER HELPER Gender Identity Not on file Sexual Orientation Not on file documented as of this encounter Plan of Treatment Not on file documented as of this encounter Visit Diagnoses Diagnosis Myalgia and myositis, unspecified- Primary Mylagia and myositis, unspecified Depressive disorder, not elsewhere classified documented in this encounter Care Teams Top Carrier Relationship Specialty Start Date End Date Korey Benites MD [address] [place] [address] PCP - General 04/28/04 documented as of this encounter
--- OUTSIDE RECORDS SUMMARY | 2025-08-24 18:40 | XMS_ITS | Encounter Summary ---
Author Organization [facility] Address [address] [place] [address] Care Team Providers Care Tin Tie Machine Operator Automatic Name Role Phone Korey Benites MD Primary Care Provider +1- [phone] Encounter Details Date Type Department Care Team (Latest Contact Info) Description 06/08/2004 Outpatient Historical [facility] Marianela-[address] [place] [address] Korey Benites MD [address] [place] [address] TENSION HEADACHE (Primary Dx); OTHER LUNG DISEASE NEC Social History Tobacco Use Types Packs/Day Years Used Date Smoking Tobacco: Never Assessed Comments Unknown Sex and Gender Information Value Date Recorded Sex Assigned at Not on file Legal Sex Female 6:39 AM SPECIAL DEPUTY SHERIFF Gender Identity Not on file Sexual Orientation Not on file documented as of this encounter Plan of Treatment Not on file documented as of this encounter Visit Diagnoses Diagnosis Tension headache- Primary Other diseases of lung, not elsewhere classified documented in this encounter Care Teams Tin Tie Machine Operator Automatic Relationship Specialty Start Date End Date Korey Benites MD [address] [place] [address] PCP - General 04/28/04 documented as of this encounter
--- OUTSIDE RECORDS SUMMARY | 2025-08-24 18:40 | XMS_ITS | Encounter Summary ---
Author Organization [facility] Address [address] [place] [address] Care Team Providers Care Building Carpenter Helper Name Role Phone Korey Benites MD Primary Care Provider +1- [phone] Encounter Details Date Type Department Care Team (Latest Contact Info) Description 04/08/2003 Outpatient Historical [facility] Imaging Services [address] [place] [phone] Determinations, Dis Spfdmo [address] [place], [place] [address] LUMBAGO (Primary Dx) Social History Tobacco Use Types Packs/Day Years Used Date Smoking Tobacco: Never Assessed Comments Unknown Sex and Gender Information Value Date Recorded Sex Assigned at Not on file Legal Sex Female 6:39 AM EXPANDED DUTY DENTAL ASSISTANT Gender Identity Not on file Sexual Orientation Not on file documented as of this encounter Plan of Treatment Not on file documented as of this encounter Visit Diagnoses Diagnosis Lumbago- Primary documented in this encounter Care Teams Building Carpenter Helper Relationship Specialty Start Date End Date Korey Benites MD [address] [phone] PCP - General 04/28/04 documented as of this encounter
--- OUTSIDE RECORDS SUMMARY | 2025-08-24 18:40 | XMS_ITS | Encounter Summary ---
Author Organization [facility] Address [address] [place] [address] Care Team Providers Care Superintendent Storage Area Name Role Phone Korey Benites MD Primary Care Provider +1- [phone] Encounter Details Date Type Department Care Team (Latest Contact Info) Description 06/24/2005 Outpatient Historical [facility] Tristen Booker Marianela [address] [place] [address] Korey Benites MD [address] [address] SCREENING MAMM-MAILG NEOPL-OTHER (Primary Dx) Social History Tobacco Use Types Packs/Day Years Used Date Smoking Tobacco: Never Assessed Comments Unknown Sex and Gender Information Value Date Recorded Sex Assigned at Not on file Legal Sex Female 6:39 AM WOOD DRILL OPERATOR Gender Identity Not on file Sexual Orientation Not on file documented as of this encounter Plan of Treatment Not on file documented as of this encounter Visit Diagnoses Diagnosis Other screening mammogram- Primary documented in this encounter Care Teams Superintendent Storage Area Relationship Specialty Start Date End Date Korey Benites MD [address] [address] PCP - General 04/28/04 documented as of this encounter
--- OUTSIDE RECORDS SUMMARY | 2025-08-24 18:40 | XMS_ITS | Encounter Summary ---
Author Organization [facility] Address [address] [place] [address] Care Team Providers Care Mandrel Press Hand Name Role Phone Korey Benites MD Primary Care Provider +1- [phone] Encounter Details Date Type Department Care Team (Latest Contact Info) Description 06/15/2004 Outpatient Historical [facility] Marianela-Zen[address] [place] [address] Korey Benites MD [address] [place] [address] SCREENING MAL NEOP-CERVIX (Primary Dx) Social History Tobacco Use Types Packs/Day Years Used Date Smoking Tobacco: Never Assessed Comments Unknown Sex and Gender Information Value Date Recorded Sex Assigned at Not on file Legal Sex Female 6:39 AM TOOL TENDER Gender Identity Not on file Sexual Orientation Not on file documented as of this encounter Plan of Treatment Not on file documented as of this encounter Visit Diagnoses Diagnosis Screening for malignant neoplasm of the cervix- Primary documented in this encounter Care Teams Mandrel Press Hand Relationship Specialty Start Date End Date Korey Benites MD [address] [place] [address] PCP - General 04/28/04 documented as of this encounter
--- OUTSIDE RECORDS SUMMARY | 2025-08-24 18:40 | XMS_ITS | Encounter Summary ---
Author Organization [facility] Address [address] [place] [address] Care Team Providers Care Semiconductor Wafers Etch Operator Name Role Phone Korey Benites MD Primary Care Provider +1- [phone] Encounter Details Date Type Department Care Team (Latest Contact Info) Description 06/15/2004 Outpatient Historical [facility] Marianela-Zenon [address] [place] [address] Korey Benites MD [address] [place] [address] Routine medical exam (Primary Dx); SCREENING MAL NEOP-CERVIX Social History Tobacco Use Types Packs/Day Years Used Date Smoking Tobacco: Never Assessed Comments Unknown Sex and Gender Information Value Date Recorded Sex Assigned at Not on file Legal Sex Female 6:39 AM ASSEMBLER MOTOR VEHICLE Gender Identity Not on file Sexual Orientation Not on file documented as of this encounter Plan of Treatment Not on file documented as of this encounter Visit Diagnoses Diagnosis Routine medical exam- Primary Routine general medical examination at a health care facility Screening for malignant neoplasm of the cervix documented in this encounter Care Teams Semiconductor Wafers Etch Operator Relationship Specialty Start Date End Date Korey Benites MD [address] [place] [address] PCP - General 04/28/04 documented as of this encounter
--- OUTSIDE RECORDS SUMMARY | 2025-08-24 18:40 | XMS_ITS | Encounter Summary ---
Author Organization [facility] Address [address] [place] [address] Care Team Providers Care Doubler Operator Name Role Phone Korey Benites MD Primary Care Provider +1- [phone] Encounter Details Date Type Department Care Team (Late st Contact Info) Description 06/24/2005 Outpatient Historical [facility] Jhony Marianela [address] [place] [address] Arlen Aldana MD NO ADDRESS ON FILE SCREENING MAMM-MAILG NEOPL-OTHER (Primary Dx) Social History Tobacco Use Types Packs/Day Years Used Date Smoking Tobacco: Never Assessed Comments Unknown Sex and Gender Information Value Date Recorded Sex Assigned at Not on file Legal Sex Female 6:39 AM FURNITURE DELIVERY DRIVER Gender Identity Not on file Sexual Orientation Not on file documented as of this encounter Plan of Treatment Not on file documented as of this encounter Visit Diagnoses Diagnosis Other screening mammogram- Primary documented in this encounter Care Teams Doubler Operator Relationship Specialty Start Date End Date Korey Benites MD [address] [id number] PCP - General 04/28/04 documented as of this encounter
--- OUTSIDE RECORDS SUMMARY | 2025-08-24 18:40 | XMS_ITS | Encounter Summary ---
Author Organization [facility] Address [address] [place] [address] Care Team Providers Care Wallcovering Texturer Name Role Phone Korey Benites MD Primary Care Provider +1- [phone] Encounter Details Date Type Department Care Team (Latest Contact Info) Description 06/09/2005 Outpatient Historical [facility] Jhony Marianela [address] [place] [address] Phuong Turner MD [address] [place] [phone] RESPIRATORY ABNORM NEC (Primary Dx) Social History Tobacco Use Types Packs/Day Years Used Date Smoking Tobacco: Never Assessed Comments Unknown Sex and Gender Information Value Date Recorded Sex Assigned at Not on file Legal Sex Female 6:39 AM NUT THREADER Gender Identity Not on file Sexual Orientation Not on file documented as of this encounter Plan of Treatment Not on file documented as of this encounter Visit Diagnoses Diagnosis Other dyspnea and respiratory abnormality- Primary documented in this encounter Care Teams Wallcovering Texturer Relationship Specialty Start Date End Date Korey Benites MD [address] [place] [address] PCP - General 04/28/04 documented as of this encounter
--- OUTSIDE RECORDS SUMMARY | 2025-08-24 18:40 | XMS_ITS | Encounter Summary ---
Author Organization [facility] Address [address] [place] [address] Care Team Providers Care Clothes Drier Repairer Name Role Phone Korey Benites MD Primary Care Provider +1- [phone] Encounter Details Date Type Department Care Team (Latest Contact Info) Description 06/17/[address] [facility] Marianela-Z[address] [place] [address] Kroey Benites MD [address] [place] [address] PNEUMONIA, ORGANISM NOS (Primary Dx) Social History Tobacco Use Types Packs/Day Years Used Date Smoking Tobacco: Never Assessed Comments Unknown Sex and Gender Information Value Date Recorded Sex Assigned at Not on file Legal Sex Female 6:39 AM AIR COMMODORE Gender Identity Not on file Sexual Orientation Not on file documented as of this encounter Plan of Treatment Not on file documented as of this encounter Visit Diagnoses Diagnosis Pneumonia, organism unspecified(486)- Primary Pneumonia, organism unspecified documented in this encounter Care Teams Clothes Drier Repairer Relationship Specialty Start Date End Date Korey Benites MD [address] [place] [address] PCP - General 04/28/04 documented as of this encounter
--- OUTSIDE RECORDS SUMMARY | 2025-08-24 18:40 | XMS_ITS | Encounter Summary ---
Author Organization [facility] Address [address] [place] [address] Care Team Providers Care Roll Mill Operator Name Role Phone Korey Benites MD Primary Care Provider +1- [phone] Encounter Details Date Type Department Care Team (Latest Contact Info) Description 08/09/2000 Outpatient Historical [facility] Marianela[address] [place] [address] Korey Benites MD [address] [place] [address] Anxiety state, unspecified (Primary Dx); Major depressive disorder, single episode, unspecified Social History Tobacco Use Types Packs/Day Years Used Date Smoking Tobacco: Never Assessed Comments Unknown Sex and Gender Information Value Date Recorded Sex Assigned at Not on file Legal Sex Female 6:39 AM PLASTIC SHEETING CUTTER Gender Identity Not on file Sexual Orientation Not on file documented as of this encounter Plan of Treatment Not on file documented as of this encounter Visit Diagnoses Diagnosis Anxiety state, unspecified- Primary Major depressive disorder, single episode, unspecified documented in this encounter Care Teams Roll Mill Operator Relationship Specialty Start Date End Date Korey Benites MD [address] [place] [address] PCP - General 04/28/04 documented as of this encounter
--- OUTSIDE RECORDS SUMMARY | 2025-08-24 18:40 | XMS_ITS | Encounter Summary ---
Author Organization [facility] Address [address] [facility] [address] Care Team Providers Care Coiler Operator Name Role Phone Korey Benites MD Primary Care Provider +1- [phone] Encounter Details Date Type Department Care Team (Latest Contact Info) Description 07/19/2005 Outpatient Historical [facility] Imaging Services [address] [place] [address] Korey Benites MD [address] [address] LUMB/LUMBOSAC DISC DEGEN (Primary Dx) Social History Tobacco Use Types Packs/Day Years Used Date Smoking Tobacco: Never Assessed Comments Unknown Sex and Gender Information Value Date Recorded Sex Assigned at Not on file Legal Sex Female 6:39 AM ROCK WOOL APPLICATOR Gender Identity Not on file Sexual Orientation Not on file documented as of this encounter Plan of Treatment Not on file documented as of this encounter Visit Diagnoses Diagnosis Degeneration of lumbar or lumbosacral intervertebral disc- Primary documented in this encounter Care Teams Coiler Operator Relationship Specialty Start Date End Date Korey Benites MD [address] [place] [address] PCP - General 04/28/04 documented as of this encounter
--- OUTSIDE RECORDS SUMMARY | 2025-08-24 18:40 | XMS_ITS | Encounter Summary ---
Author Organization [facility] Address [address] [place] [address] Care Team Providers Care Coil Taper Name Role Phone Korey Benites MD Primary Care Provider +1- [phone] Encounter Details Date Type Department Care Team (Late st Contact Info) Description 01/03/2003 Inpatient Historical [facility] quiqueNiall DO NO ADDRESS ON FILE CHEST PAIN NOS (Primary Dx) Social History Tobacco Use Types Packs/Day Years Used Date Smoking Tobacco: Never Assessed Comments Unknown Sex and Gender Information Value Date Recorded Sex Assigned at Not on file Legal Sex Female 6:39 AM CALCINE FURNACE LOADER Gender Identity Not on file Sexual Orientation Not on file documented as of this encounter Plan of Treatment Not on file documented as of this encounter Visit Diagnoses Diagnosis Chest pain, unspecified- Primary documented in this encounter Care Teams Coil Taper Relationship Specialty Start Date End Date Korey Benites MD [address] [facility] [address] [place] [address] PCP - General 04/28/04 documented as of this encounter
--- OUTSIDE RECORDS SUMMARY | 2025-08-24 18:40 | XMS_ITS | Encounter Summary ---
Author Organization [facility] Address [address] [place] [address] Care Team Providers Care Reconsignment Clerk Name Role Phone Korey Benites MD Primary Care Provider +1- [phone] Encounter Details Date Type Department Care Team (Late st Contact Info) Description 03/04/2003 Outpatient Historical [facility] Rheumatology- [facility] Marianela [address] [place] [address] Social History Tobacco Use Types Packs/Day Years Used Date Smoking Tobacco: Never Assessed Comments Unknown Sex and Gender Information Value Date Recorded Sex Assigned at Not on file Legal Sex Female 6:39 AM ARMATURE WINDER REPAIR HELPER Gender Identity Not on file Sexual Orientation Not on file documented as of this encounter Plan of Treatment Not on file documented as of this encounter Visit Diagnoses Not on filedocumented in this encounter Care Teams Reconsignment Clerk Relationship Specialty Start Date End Date Korey Benites MD [address] [place] [address] PCP - General 04/28/04 documented as of this encounter
--- OUTSIDE RECORDS SUMMARY | 2025-08-24 18:40 | XMS_ITS | Encounter Summary ---
Author Organization [facility] Address [address] [place] [address] Care Team Providers Care Electronics Utility Worker Name Role Phone Korey Benites MD Primary Care Provider +1- [phone] Encounter Details Date Type Department Care Team (Latest Contact Info) Description 01/03/2000 Outpatient Historical [facility] Marianela-Z[address] [place] [address] Korey Benites MD [address] [place] [address] Major depressive disorder, single episode, unspecified (Primary Dx); Myalgia and myositis, unspecified Social History Tobacco Use Types Packs/Day Years Used Date Smoking Tobacco: Never Assessed Comments Unknown Sex and Gender Information Value Date Recorded Sex Assigned at Not on file Legal Sex Female 6:39 AM IN HOME CAREGIVER Gender Identity Not on file Sexual Orientation Not on file documented as of this encounter Plan of Treatment Not on file documented as of this encounter Visit Diagnoses Diagnosis Major depressive disorder, single episode, unspecified- Primary Myalgia and myositis, unspecified Mylagia and myositis, unspecified documented in this encounter Care Teams Electronics Utility Worker Relationship Specialty Start Date End Date Korey Benites MD [address] [place] [address] PCP - General 04/28/04 documented as of this encounter
--- OUTSIDE RECORDS SUMMARY | 2025-08-24 18:40 | XMS_ITS | Encounter Summary ---
Author Organization [facility] Address [address] [place] [address] Care Team Providers Care Fast Food Sales Assistant Name Role Phone Korey Benites MD Primary Care Provider +1- [phone] Encounter Details Date Type Department Care Team (Latest Contact Info) Description 07/12/2005 Outpatient Historical [facility] Marianela-Z[address] [place] [address] Korey Benites MD [address] [place] [address] BACKACHE NOS (Primary Dx) Social History Tobacco Use Types Packs/Day Years Used Date Smoking Tobacco: Never Assessed Comments Unknown Sex and Gender Information Value Date Recorded Sex Assigned at Not on file Legal Sex Female 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
--- OUTSIDE RECORDS SUMMARY | 2025-08-24 18:40 | XMS_ITS | Encounter Summary ---
Author Organization [facility] Address [address] [place] [address] Care Team Providers Care Employee Services Manager Name Role Phone Korey Benites MD Primary Care Provider +1- [phone] Encounter Details Date Type Department Care Team (Latest Contact Info) Description 04/22/2005 Outpatient Historical [facility] Marianela-Z[address] [place] [address] Korey Benites MD [address] [place] [address] HYPERLIPIDEMIA NEC/NOS (Primary Dx); MYALGIA AND MYOSITIS NOS; ESOPHAGITIS, UNSPECIFIED Social History Tobacco Use Types Packs/Day Years Used Date Smoking Tobacco: Never Assessed Comments Unknown Sex and Gender Information Value Date Recorded Sex Assigned at Not on file Legal Sex Female 6:39 AM ASSOCIATE COUNSEL Gender Identity Not on file Sexual Orientation Not on file documented as of this encounter Plan of Treatment Not on file documented as of this encounter Visit Diagnoses Diagnosis Other and unspecified hyperlipidemia- Primary Myalgia and myositis, unspecified Mylagia and myositis, unspecified Esophagitis, unspecified documented in this encounter Care Teams Employee Services Manager Relationship Specialty Start Date End Date Korey Benites MD [address] [place] [address] PCP - General 04/28/04 documented as of this encounter
--- OUTSIDE RECORDS SUMMARY | 2025-08-24 18:40 | XMS_ITS | Encounter Summary ---
Author Organization [facility] Address [address] [place] [address] Care Team Providers Care Insulation Blanket Maker Name Role Phone Korey Benites MD Primary Care Provider +1- [phone] Encounter Details Date Type Department Care Team (Latest Contact Info) Description 06/15/2004 Outpatient Historical [facility] Imaging Services-[facility] Marianela [address] [place] [address] Korey Benites MD [address] [place] [address] CHEST SWELLING/MASS/LUMP (Primary Dx) Social History Tobacco Use Types Packs/Day Years Used Date Smoking Tobacco: Never Assessed Comments Unknown Sex and Gender Information Value Date Recorded Sex Assigned at Not on file Legal Sex Female 6:39 AM OUT AND OUT CIGAR MAKER HAND Gender Identity Not on file Sexual Orientation Not on file documented as of this encounter Plan of Treatment Not on file documented as of this encounter Visit Diagnoses Diagnosis Swelling, mass, or lump in chest- Primary documented in this encounter Care Teams Insulation Blanket Maker Relationship Specialty Start Date End Date Korey Benites MD [address] [place] [address] PCP - General 04/28/04 documented as of this encounter
--- OUTSIDE RECORDS SUMMARY | 2025-08-24 18:40 | XMS_ITS | Encounter Summary ---
Author Organization [facility] Address [address] [place] [facility] [place] [address] Care Team Providers Care Miner Name Role Phone Korey Benites MD Primary Care Provider +1- [phone] Encounter Details Date Type Department Care Team (Latest Contact Info) Description 03/22/1999 Outpatient Historical [facility] Rheumatology- [facility] [place] [address] [place] [address] Wade Kent MD NO ADDRESS ON FILE Myalgia and myositis, unspecified (Primary Dx) Social History Tobacco Use Types Packs/Day Years Used Date Smoking Tobacco: Never Assessed Comments Unknown Sex and Gender Information Value Date Recorded Sex Assigned at Not on file Legal Sex Female 6:39 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
--- OUTSIDE RECORDS SUMMARY | 2025-08-24 18:40 | XMS_ITS | Encounter Summary ---
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
--- OUTSIDE RECORDS SUMMARY | 2025-08-24 18:40 | XMS_ITS | Encounter Summary ---
Author Organization [facility] Address [address] [place] [address] Care Team Providers Care Social Work Professor Name Role Phone Korey Benites MD Primary Care Provider +1- [phone] Encounter Details Date Type Department Care Team (Latest Contact Info) Description 06/24/2004 Outpatient Historical [facility] Imaging Services-[facility] Jhony Marianela [address] [place] [address] Korey Benites MD [address] [place] [address] NONTOX UNINODULAR GOITER (Primary Dx) Social History Tobacco Use Types Packs/Day Years Used Date Smoking Tobacco: Never Assessed Comments Unknown Sex and Gender Information Value Date Recorded Sex Assigned at Not on file Legal Sex Female 6:39 AM SUPERINTENDENT TESTS Gender Identity Not on file Sexual Orientation Not on file documented as of this encounter Plan of Treatment Not on file documented as of this encounter Visit Diagnoses Diagnosis Nontoxic uninodular goiter- Primary documented in this encounter Care Teams Social Work Professor Relationship Specialty Start Date End Date Korey Benitse MD [address] [place] [address] PCP - General 04/28/04 documented as of this encounter
--- OUTSIDE RECORDS SUMMARY | 2025-08-24 18:40 | XMS_ITS | Encounter Summary ---
Author Organization [facility] Address [address] [place] [address] Care Team Providers Care Account Clerk Name Role Phone Korey Benites MD Primary Care Provider +1- [phone] Encounter Details Date Type Department Care Team (Latest Contact Info) Description 09/01/2004 Outpatient Historical [facility] [address] [place] [address] Drew Mondragon MD NO ADDRESS ON FILE NONTOX MULTINODUL GOITER (Primary Dx) Social History Tobacco Use Types Packs/Day Years Used Date Smoking Tobacco: Never Assessed Comments Unknown Sex and Gender Information Value Date Recorded Sex Assigned at Not on file Legal Sex Female 6:39 AM MEDICAL REFERRAL COORDINATOR Gender Identity Not on file Sexual Orientation Not on file documented as of this encounter Plan of Treatment Not on file documented as of this encounter Visit Diagnoses Diagnosis Nontoxic multinodular goiter- Primary documented in this encounter Care Teams Account Clerk Relationship Specialty Start Date End Date Korey Benites MD [address] [place] [address] PCP - General 04/28/04 documented as of this encounter
--- OUTSIDE RECORDS SUMMARY | 2025-08-24 18:40 | XMS_ITS | Encounter Summary ---
Author Organization [facility] Address [address] [place] [facility] [place] [address] Care Team Providers Care Roof Service Technician Name Role Phone Korey Benites MD Primary Care Provider +1- [phone] Encounter Details Date Type Department Care Team (Latest Contact Info) Description 05/21/1998 Outpatient Historical [facility] Rheumatology- [facility] [place] [address] [place] [address] Wade Kent MD NO ADDRESS ON FILE Myalgia and myositis, unspecified (Primary Dx) Social History Tobacco Use Types Packs/Day Years Used Date Smoking Tobacco: Never Assessed Comments Unknown Sex and Gender Information Value Date Recorded Sex Assigned at Not on file Legal Sex Female 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
--- OUTSIDE RECORDS SUMMARY | 2025-08-24 18:40 | XMS_ITS | Encounter Summary ---
Author Organization [facility] Address [address] [place] [address] Care Team Providers Care Efficiency Manager Name Role Phone Korey Benites MD Primary Care Provider +1- [phone] Encounter Details Date Type Department Care Team (Latest Contact Info) Description 10/20/2004 Outpatient Historical [facility] [place] [place] [address] Korey Benites MD [address] [place] [address] HYPERLIPIDEMIA NEC/NOS (Primary Dx); OTHER MALAISE AND FATIGUE; IRRITABLE COLON Social History Tobacco Use Types Packs/Day Years Used Date Smoking Tobacco: Never Assessed Comments Unknown Sex and Gender Information Value Date Recorded Sex Assigned at Not on file Legal Sex Female 6:39 AM HOTEL 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
--- OUTSIDE RECORDS SUMMARY | 2025-08-24 18:40 | XMS_ITS | Encounter Summary ---
Author Organization [facility] Address [address] [place] [address] Care Team Providers Care C 13 Catapult Operator Name Role Phone Korey Benites MD Primary Care Provider [phone]- [phone] Encounter Details Date Type Department Care Team (Latest Contact Info) Description 05/04/2004 Outpatient Historical [facility] Endoscopy [place] [address] [facility] [address] [place] [address] Juan Jurado MD [address] [facility] [address] [place] [address] SCREENING MAL NEOP-COLON (Primary Dx) Social History Tobacco Use Types Packs/Day Years Used Date Smoking Tobacco: Never Assessed Comments Unknown Sex and Gender Information Value Date Recorded Sex Assigned at Not on file Legal Sex Female 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
--- OUTSIDE RECORDS SUMMARY | 2025-08-24 18:40 | XMS_ITS | Encounter Summary ---
Author Organization [facility] Address [address] [place] [address] Care Team Providers Care Silo Tender Name Role Phone Korey Benites MD Primary Care Provider [phone]- [phone] Encounter Details Date Type Department Care Team (Latest Contact Info) Description 09/01/[address] 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
--- OUTSIDE RECORDS SUMMARY | 2025-08-24 18:40 | XMS_ITS | Encounter Summary ---
Author Organization [facility] Address [address] [place] [address] Care Team Providers Care Conference Reservationist Name Role Phone Korey Benites MD Primary Care Provider [phone]- [phone] Encounter Details Date Type Department Care Team (Latest Contact Info) Description 12/06/2004 Outpatient Historical [facility] Imaging Services-[facility]amon Jhony Marianela [address] [place] [address] Korey Benites MD [address] [place] [address] OTHER LUNG DISEASE NEC (Primary Dx) Social History Tobacco Use Types Packs/Day Years Used Date Smoking Tobacco: Never Assessed Comments Unknown Sex and Gender Information Value Date Recorded Sex Assigned at Not on file Legal Sex Female 6:39 AM PARQUETRY FLOOR LAYER Gender Identity Not on file Sexual Orientation Not on file documented as of this encounter Plan of Treatment Not on file documented as of this encounter Visit Diagnoses Diagnosis Other diseases of lung, not elsewhere classified- Primary documented in this encounter Care Teams Conference Reservationist Relationship Specialty Start Date End Date Korey Benites MD [address] [place] [address] PCP - General 04/28/04 documented as of this encounter
--- OUTSIDE RECORDS SUMMARY | 2025-08-24 18:40 | XMS_ITS | Encounter Summary ---
Author Organization [facility] Address [address] [place] [address] Care Team Providers Care Flare Stitcher Name Role Phone Korey Benites MD Primary Care Provider Encounter Details Date Type Department Care Team (Latest Contact Info) Description 12/03/1999 Outpatient Historical [facility] Imaging Services-Tristen Booker Marianela [address] [place] [address] Korey Benites MD [address] [place] [address] Abdominal pain, unspecified site (Primary Dx); Pain in joint, pelvic region and thigh Social History Tobacco Use Types Packs/Day Years Used Date Smoking Tobacco: Never Assessed Comments Unknown Sex and Gender Information Value Date Recorded Sex Assigned at Not on file Legal Sex Female 6:39 AM DIRECTOR ECONOMIC Gender Identity Not on file Sexual Orientation Not on file documented as of this encounter Plan of Treatment Not on file documented as of this encounter Visit Diagnoses Diagnosis Abdominal pain, unspecified site- Primary Pain in joint, pelvic region and thigh documented in this encounter Care Teams Flare Stitcher Relationship Specialty Start Date End Date Korey Benites MD [address] [place] [address] PCP - General 04/28/04 documented as of this encounter
--- OUTSIDE RECORDS SUMMARY | 2025-08-24 18:40 | XMS_ITS | Encounter Summary ---
Author Organization [facility] Address [address] [place] [address] Care Team Providers Care Mold Sheet Cleaner Name Role Phone Korey Benites MD Primary Care Provider [phone]- [phone] Encounter Details Date Type Department Care Team (Latest Contact Info) Description 06/28/2000 Outpatient Historical [facility] [address] [place] [address] Korey Benites MD [address] [place] [address] Generalized anxiety disorder (Primary Dx); Major depressive disorder, single episode, unspecified Social History Tobacco Use Types Packs/Day Years Used Date Smoking Tobacco: Never Assessed Comments Unknown Sex and Gender Information Value Date Recorded Sex Assigned at Not on file Legal Sex Female 6:39 AM CASSANDRA CONSULTANT Gender Identity Not on file Sexual Orientation Not on file documented as of this encounter Plan of Treatment Not on file documented as of this encounter Visit Diagnoses Diagnosis Generalized anxiety disorder- Primary Major depressive disorder, single episode, unspecified documented in this encounter Care Teams Mold Sheet Cleaner Relationship Specialty Start Date End Date Korey Benites MD [address] [place] [address] PCP - General 04/28/04 documented as of this encounter
--- OUTSIDE RECORDS SUMMARY | 2025-08-24 18:40 | XMS_ITS | Encounter Summary ---
Author Organization [facility] Address [address] [place] [address] Care Team Providers Care Biological Sciences Instructor Name Role Phone Korey Benites MD Primary Care Provider [phone] Encounter Details Date Type Department Care Team (Latest Contact Info) Description 12/03/1999 Outpatient Historical [facility] [address] [place] [address] Korey Benites MD [address] [place] [address] Unspecified viral infection, in conditions classified elsewhere and of unspecified site (Primary Dx); Irritable bowel syndrome Social History Tobacco Use Types Packs/Day Years Used Date Smoking Tobacco: Never Assessed Comments Unknown Sex and Gender Information Value Date Recorded Sex Assigned at Not on file Legal Sex Female 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
--- OUTSIDE RECORDS SUMMARY | 2025-08-24 18:40 | XMS_ITS | Encounter Summary ---
Author Organization [facility] Address [address] [place] [address] Care Team Providers Care Textile Broker Name Role Phone Korey Benites MD Primary Care Provider [phone]- [phone] Encounter Details Date Type Department Care Team (Latest Contact Info) Description 04/28/2004 Outpatient Historical [facility] Tristen Booker Marianela [address] [place] [address] Korey Benites MD [address] [address] SCREENING MAMM-MAILG NEOPL-OTHER (Primary Dx) Social History Tobacco Use Types Packs/Day Years Used Date Smoking Tobacco: Never Assessed Comments Unknown Sex and Gender Information Value Date Recorded Sex Assigned at Not on file Legal Sex Female 6:39 AM SPA HOST Gender Identity Not on file Sexual Orientation Not on file documented as of this encounter Plan of Treatment Not on file documented as of this encounter Visit Diagnoses Diagnosis Other screening mammogram- Primary documented in this encounter Care Teams Textile Broker Relationship Specialty Start Date End Date Korey Benites MD [address] [address] PCP - General 04/28/04 documented as of this encounter
--- NOTE | 2025-08-24 18:44 | ECG_ITS ---
[facility] Test Date: 2025-08-24 Pat Name: Claritza De Luna Department: Room: Gender: Female Sales Assistant Displays: : 1950 Requested By: Tyree Staton Order Number: [id number] Osorio MD: Casey Servin M.D. Measurements Intervals [place] Rate: 66 P: 57 OK: 197 QRS: 15 QRSD: 80 T: 136 QT: 401 QTc: 420 Interpretive Statements SINUS RHYTHM WITH OCCASIONAL SUPRAVENTRICULAR PREMATURE COMPLEXES LEFT VENTRICULAR HYPERTROPHY AND ST-T CHANGE [VOLTAGE CRITERIA PLUS ST/T ABNORMALITY] POSSIBLE SEPTAL MYOCARDIAL INFARCTION , PROBABLY OLD [30 ms Q WAVE IN V1/V2] Compared to ECG 12/01/2024 20:24:09 ST (T wave) deviation now present Atrial fibrillation no longer present T-wave abnormality no longer present Possible ischemia no longer present Myocardial infarct finding still present Electronically Signed On 08-25-2025 23:27:56 CDT by Casey Servin M.D. [email or web address]
--- NOTE | 2025-08-24 18:47 | PC.NURSE ---
%When pt arrived she did not have her home O2 due to concentrator battery, pt was 81% on room air, pt was roomed and placed on 4L NC which she advises is her baseline and O2 sat improved to 92%
--- NOTE | 2025-08-24 18:56 | XRR_ITS ---
PROCEDURE INFORMATION: Exam: XR Chest Exam date and time: 08/24/2025 7:12 PM Age: 75 years old Clinical indication: Shortness of breath; Prior surgery; Surgery date: 3-7 days post-operative; Surgery type: Cardiac ablation x 1 week ago; Additional info: SOB TECHNIQUE: Imaging protocol: Radiologic exam of the chest. Views: 1 view. COMPARISON: CT chest [facility] [id number] 12/01/2024 5:24 PM FINDINGS: Lungs: Bibasilar atelectasis versus infiltrate. Pleural spaces: Trace bilateral pleural effusions suspected. Heart/Mediastinum: Cardiomegaly and interstitial edema. Bones/joints: Unremarkable. XR/XR chest 1V portable [id number] IMPRESSION: 1. Cardiomegaly and interstitial edema. 2. Bibasilar atelectasis versus infiltrate. 3. Trace bilateral pleural effusions suspected.
[2025-08-24 19:09] VITALS: BP 142/41; PULSE 62; O2SAT 96
[2025-08-24 19:11] LABS: Hematocrit 29.3 % (36-47); Hemoglobin 9.20 g/dL (11.27-16.99); Mean Corpuscular HGB Conc 31.4 g/dL (30-55); Mean Corpuscular Hemoglobin 30.2 pg (27-33); Mean Corpuscular Volume 96.1 fl (85-98); Nucleated Red Blood Cells % 0.3 %; Platelet Count 333 10^3/cmm (157-399); Red Blood Count 3.05 10^6/uL (3.85-5.65); White Blood Count 12.16 10^3/uL (3.29-11.43)
[2025-08-24 19:37] LABS: Troponin(5th) Baseline 44 ng/L (0-10)
[2025-08-24 19:39] LABS: Lactic Sepsis W/Reflex 1.2 mmol/L (0.5-2.2)
--- NOTE | 2025-08-24 19:42 | W.ED.SOB ---
HPI - SOB/Dyspnea General: Chief Complaint: Shortness of Breath/Dyspnea Stated Complaint: SOB needs 4 L Time Seen by Provider: 08/24/25 18:54 History of Present Illness: HPI Narrative: Patient is a 75-year-old female presenting today with acute dyspnea. She reports significant shortness of breath with minimal exertion, stating she cannot make it from her bed to the bathroom (a very short distance) without becoming severely dyspneic. Patient notes the dyspnea has worsened since this morning. She is currently on home oxygen at 4L, which was increased during the visit to help with her symptoms. Patient denies cough but states she feels like she needs to cough but cannot produce anything. She denies fever or peripheral edema. Of note, patient underwent cardiac ablation 9 days ago (on 2025-08-15) at [facility]. At that time, she had a transesophageal echocardiogram performed prior to the procedure. 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 Patient reports she has been taking her diuretic (unspecified) PRN rather than daily, with her last dose taken 8 days ago. She admits to wheezing. Patient denies being around sick contacts and has not left her house since the procedure. Related Data Home Medications ?Medication ?Instructions ?Recorded ?Confirmed atorvastatin 80 mg tablet 80 mg PO DAILY 12/01/24 12/01/24 budesonide-formoterol HFA 160 2 puff inhalation BID 12/01/24 12/01/24 mcg-4.5 mcg/actuation aerosol inhaler (Symbicort) cholecalciferol (vitamin D3) 25 25 mcg PO DAILY 12/01/24 12/01/24 mcg (1,000 unit) chewable tablet (Vitamin D3) dabigatran etexilate 150 mg 150 mg PO DAILY 12/01/24 12/01/24 capsule (Pradaxa) diltiazem HCl 240 mg 240 mg PO DAILY 12/01/24 12/01/24 capsule,extended release 24 hr furosemide 40 mg tablet 40 mg PO DAILY 12/01/24 12/01/24 gabapentin 100 mg capsule See Rx Instructions .Route .COMPLEX 12/01/24 12/01/24 hydrocodone 7.5 mg-acetaminophen 1 tab PO Q4H PRN Pain (Scale Score 12/01/24 12/01/24 325 mg tablet 4-6) hyoscyamine sulfate 0.125 mg 0.125 mg sublingual Q6H PRN Spasms 12/01/24 12/01/24 sublingual tablet ipratropium 0.5 mg-albuterol 3 mg 3 ml inhalation Q6H 12/01/24 12/01/24 (2.5 mg base)/3 mL nebulization soln mecobalamin (vitamin B12) 1,000 1,000 mcg PO DAILY 12/01/24 12/01/24 mcg chewable tablet (B12 Active) montelukast 10 mg tablet 10 mg PO QPM PRN allergies 12/01/24 12/01/24 potassium chloride 20 mEq 20 meq PO QAM 12/01/24 12/01/24 tablet,extended release sertraline 100 mg tablet 200 mg PO DAILY 12/01/24 12/01/24 Previous Rx's ?Medication ?Instructions ?Recorded azithromycin 250 mg tablet 500 mg (2 x 250 mg) PO DAILY #8 12/03/24 tabs metoprolol succinate 25 mg 12.5 mg (1/2 x 25 mg) PO DAILY #30 12/03/24 tablet,extended release 24 hr tabs (Toprol XL) Allergies Allergy/AdvReac Type Severity Reaction Status Date / Time dextromethorphan Allergy ALGY-Anaphy Verified 12/01/24 12:03 laxis Penicillins Allergy ALGY-Hives Verified 12/01/24 12:03 Review of Systems Narrative: Constitutional: Denies fever Respiratory: Positive for severe dyspnea with minimal exertion, wheezing. Feels need to cough but unable to produce anything. Cardiovascular: Recent cardiac ablation. No peripheral edema reported. All other systems: Not documented in this encounter [facility] ED PFSH: Medical History COPD with asthma Atrial fibrillation Social History Smoking and tobacco/nicotine status: former use of tobacco/nicotine Alcohol intake: unknown Substance/Drug Use: unknown Caregiver/support person: Yes Lives independently: Yes Household members: family Housing: House Physical Exam Const: GENERAL APPEARANCE: cooperative and ill appearing HENMT: COMMON NORMALS: normocephalic, atraumatic and Normal external nose present HEAD & SCALP: normocephalic and atraumatic FACE & SINUS: normal facial exam and face symmetric NOSE: Normal external nose present Eye: COMMON NORMALS: Equal, round and reactive pupils present and EOMs intact bilaterally PUPIL: Yes Equal, round and reactive pupils present Neck/C-Spine: GENERAL: Yes trachea midline Chest: CHEST: Yes Symmetrical chest wall rise Resp: EFFORT & INSPECTION: Yes tachypneic and Yes labored AUSCULTATION: diminished lung sounds Cardio: COMMON NORMALS: regular rate and regular rhythm RATE: regular rate RHYTHM: regular rhythm GI: COMMON NORMALS: Normal to inspection, nondistended, normoactive bowel sounds present Extremity: COMMON NORMALS: no pedal edema Neuro: SALAS COMA SCALE: document GCS findings [place] coma scale eye opening: Spontaneous [place] coma scale verbal response: Orientated [place] coma scale motor response: Obey commands [place] coma scale total score: 15 SENSORY EXAM: Yes extremities (intact) Psych: COMMON NORMALS: speech normal SPEECH: Yes normal speech Skin: COMMON NORMALS: no rashes or lesions noted GENERAL SKIN EXAM: no rashes or lesions noted Course Vital Signs: Vital signs: Vital Signs Temperature 98.2 F 08/24/25 18:30 Pulse Rate 58 L 08/24/25 22:32 Respiratory Rate 29 H 08/24/25 22:32 Blood Pressure 128/47 08/24/25 21:37 Pulse Oximetry 99 08/24/25 22:32 Oxygen Delivery Me thod Nasal Cannula 08/24/25 22:32 Oxygen Flow Rate 5 08/24/25 22:32 MDM - SOB/Dyspnea Medical Decision Making 75-year-old female who is status post cardiac ablation. She presents short of breath. She is on 5 L currently. Initial oxygen saturations were quite low on her home 4 L, but then she improved at rest 90% or so on her home 4 L. She is currently on 5 L satting greater than 95%. She was given a breathing treatment, 80 mg IV Lasix, Nitropaste. Her blood pressures improved. She is diuresed significantly, and is feeling much better. She was given the option for admission, and was even seen briefly by the hospitalist, but wishes to go home as she is feeling improved. She will go home on her home furosemide which she had been taking as needed, but will take daily for the next 4 days scheduled to continue diuresis. She knows to return for any worsening symptoms. Laboratory shows a hemoglobin is 9.2 which is lower than it has been here, but she has not had hemoglobin here in quite a while. White blood cell count was 12 without significant left shift. Her BNP was 2400, troponin was stable at 2 hours. Lactic acid was 1.2. Lab Data 08/24/25 18:59 08/24/25 18:59 Labs/Radiology: Radiology Impressions Chest X-Ray 08/24/25 18:56 IMPRESSION: 1. Cardiomegaly and interstitial edema. 2. Bibasilar atelectasis versus infiltrate. 3. Trace bilateral pleural effusions suspected. Laboratory Results WBC 12.16 10^3/uL (3.29-11.43) H 08/24/25 18:59 RBC 3.05 10^6/uL (3.85-5.65) L 08/24/25 18:59 Hgb 9.20 g/dL (11.27-16.99) L 08/24/25 18:59 Hct 29.3 % (36-47) L 08/24/25 18:59 MCV 96.1 fl (85-98) 08/24/25 18: MCH 30.2 pg (27-33) 08/24/25 18: MCHC 31.4 g/dL (30-55) 08/24/25 18:59 RDW 16.9 % (12.1-15.1) H 08/24/25 18:59 Plt Count 333 10^3/cmm (157-399) 08/24/25 18: MPV 9.5 fL (7.4-10.4) 08/24/25 18:59 Neut % (Auto) 83.9 % 08/24/25 18:59 Lymph % (Auto) 7.2 % 08/24/25 18:59 Millard % (Auto) 6.6 % 08/24/25 18:59 Eos % (Auto) 1.2 % 08/24/25 18:59 Baso % (Auto) 0.4 % 08/24/25 18:59 Neut # (Auto) 10.20 10^3/uL (1.8-7.7) H 08/24/25 18:59 Lymph # (Auto) 0.9 10^3/uL (0.8-4.8) 08/24/25 18:59 Millard # (Auto) 0.8 10^3/uL (0.2-0.9) 08/24/25 18:59 Eos # (Auto) 0.2 10^3/uL (0.0-0.8) 08/24/25 18:59 Baso # (Auto) 0.1 10^3/uL (0.0-0.1) 08/24/25 18:59 Nucleated RBC % (auto) 0.3 % 08/24/25 18:59 Nucleated RBCs # 0.0 /100WBC 08/24/25 18:59 Sodium 141 mmol/L (136-145) 08/24/25 18:59 Potassium 3.9 mmol/L (3.5-5.1) 08/24/25 18:59 Chloride 101 mmol/L (98-107) 08/24/25 18:59 Carbon Dioxide 27 mmol/L (22-29) 08/24/25 18:59 Anion Gap 16.9 (5-19) 08/24/25 18:59 BUN 10 mg/dL (8-23) 08/24/25 18:59 Creatinine 0.7 mg/dL (0.5-0.9) 08/24/25 18:59 GFR Calculation Not Reportable 08/24/25 18:59 Glucose 114 mg/dL (65-115) 08/24/25 18:59 Calculated Osmolality 292 mOsm/kg (285-295) 08/24/25 18:59 Lactic Acid 1.2 mmol/L (0.5-2.2) 08/24/25 18:59 Calcium 9.3 mg/dL (8.5-10.5) 08/24/25 18:59 Total Bilirubin 1.1 mg/dL (0.15-1.2) 08/24/25 18:59 AST 18 U/L (0-32) 08/24/25 18:59 ALT 17 U/L (0-33) 08/24/25 18:59 Alkaline Phosphatase 108 U/L (35-105) H 08/24/25 18:59 Troponin T Baseline 44 ng/L (0-10) H 08/24/25 18:59 Troponin T 120 Minute 41.13 ng/L (0-10) H 08/24/25 20:45 Delta Troponin T -2.87 ABS# (0-10) L 08/24/25 20:45 NT-Pro-B Natriuret Pep 2434 pg/mL (0-125) H 08/24/25 18:59 Total Protein 7.1 g/dL (6.6-8.7) 08/24/25 18:59 Albumin 3.9 g/dL (3.5-5.2) 08/24/25 18:59 Globulin 3.2 g/dL (1.3-4.6) 08/24/25 18:59 All radiology interpretation(s) finalized by discharge Discharge Plan Discharge Patient Disposition: Home Clinical Impression: Pulmonary edema Condition: Stable Prescriptions: No Action furosemide 40 mg tablet 40 mg PO DAILY hydrocodone-acetaminophen 7.5-325 mg tablet 1 tab PO Q4H PRN (Reason: Pain (Scale Score 4-6)) budesonide-formoterol [Symbicort] 160-4.5 mcg/actuation HFA aerosol inhaler 2 puff INHALATION BID atorvastatin 80 mg tablet 80 mg PO DAILY ipratropium-albuterol 0.5 mg-3 mg(2.5 mg base)/3 mL solution for nebulization 3 ml INHALATION Q6H diltiazem HCl 240 mg capsule,extended release 24hr 240 mg PO DAILY sertraline 100 mg tablet 200 mg PO DAILY hyoscyamine sulfate 0.125 mg tablet, sublingual 0.125 mg sublingual Q6H PRN (Reason: Spasms) montelukast 10 mg tablet 10 mg PO QPM PRN (Reason: allergies) gabapentin 100 mg capsule See Rx Instructions .ROUTE .COMPLEX Rx Instructions: TAKE 1 TO 3 CAPSULES BY MOUTH THREE TIMES DAILY dabigatran etexilate [Pradaxa] 150 mg capsule 150 mg PO DAILY potassium chloride 20 mEq tablet extended release 20 meq PO QAM cholecalciferol (vitamin D3) [Vitamin D3] 25 mcg (1,000 unit) Tablet,Chewable 25 mcg PO DAILY mecobalamin (vitamin B12) [B12 Active] 1,000 mcg Tablet,Chewable 1,000 mcg PO DAILY azithromycin 250 mg Tablet 500 mg PO DAILY Qty: 8 0RF metoprolol succinate [Toprol XL] 25 mg tablet extended release 24 hr 12.5 mg PO DAILY Qty: 30 0RF Discharge Orders: Discharge ED (Routine); Ordered 08/24/25 Ordered By: Tyree Guy Patient Instructions: Pulmonary Edema (ED), Opioid Safety, Pain Management, Patient Portal & Klaus Instructions Activity Restrictions/Additional Instructions: Take your furosemide (water pill) daily for the next 4 days. Then you may stop if you are feeling improved. Return for worsening shortness of breath despite treatment, development of fever, cough, chest discomfort, any other concerning symptoms. Print Language: Comoran Coding Level of Care Code ED [facility] Worker for Delmis Allen
[2025-08-24] MEDS: FUROsemide 10 mg/mL SDV 10mL 80 MG IVP (19:49)
[2025-08-24 19:51] VITALS: BP 169/67; PULSE 60
[2025-08-24] MEDS: nitroglycerin 1 gm/inch oint Pkt 1 INCH TOPICAL (19:51)
[2025-08-24 20:26] LABS: Alanine Aminotransferase 17 U/L (0-33); Albumin Level 3.9 g/dL (3.5-5.2); Alkaline Phosphatase 108 U/L (35-105); Anion Gap 16.9 (5-19); Aspartate Amino Transferase 18 U/L (0-32); Blood Urea Nitrogen 10 mg/dL (8-23); Calcium 9.3 mg/dL (8.5-10.5); Carbon Dioxide 27 mmol/L (22-29); Chloride 101 mmol/L (98-107); Creatinine Clr Calc Pharmacy 73.7091; Globulin 3.2 g/dL (1.3-4.6); Glucose 114 mg/dL (65-115); NT Pro B Type Natriuretic Pept 2434 pg/mL (0-125); Osmolality Calculated 292 mOsm/kg (285-295); Potassium 3.9 mmol/L (3.5-5.1); Sodium 141 mmol/L (136-145); Total Protein 7.1 g/dL (6.6-8.7)
[2025-08-24 21:31] LABS: Troponin 5 2HR 41.13 ng/L (0-10)
[2025-08-24 21:33] LABS: Troponin 5 2HR Delta -2.87 ABS# (0-10)
[2025-08-24 21:37] VITALS: BP 128/47; PULSE 57; RESP 17; O2SAT 97
[2025-08-24 22:32] VITALS: PULSE 58; RESP 29; O2SAT 99
[2025-08-24 23:09] VITALS: BP 118/53; PULSE 61; RESP 18; O2SAT 97
== END 2025-08-24 23:11 | disposition home or self-care (01) ==
PROVIDERS: Emergency Provider Emergency Medicine
DX: J81.1 Chronic pulmonary edema (principal); Z99.81 Dependence on supplemental oxygen; Z87.891 Personal history of nicotine dependence; J44.9 Chronic obstructive pulmonary disease, unspecified
CPT/HCPCS: 71045; 80053; 83605; 83880; 84484; 85025; 93005; 94640; 96374; 99285; J1938; J9999